=== PATIENT | female | born 1960 | race African-American/Black ===

== ENCOUNTER 2017-08-18 17:48 | Inpatient (IN) | payer OTHER ==
[2017-08-18 17:56] VITALS: BMI 53.8
--- NOTE | 2017-08-18 17:57 | PDOC ---
Rapid Medical Evaluation Time Seen by Provider: 08/18/17 17:50 Medical Evaluation: Allergies Allergy/AdvReac Type Severity Reaction Status Date / Time No Known Allergies Allergy Verified 08/18/17 17:50 12 17:50 The patient presents with a chief complaint of: allergic reaction for one week d/t vapor smoke coming through the vents in her apartment. Admits to cough and congestion. I have performed a brief in-person evaluation of this patient; Pertinent physical exam findings: HR: 130, BP 161/114. Decreased lung sounds to the LLL I have ordered the following: CXR, CBC, CMP, Cardiac profile, urine preg The patient will proceed to the ED for further evaluation.
[2017-08-18 18:15] LABS: BASO % 2.5 % (0-2.0); EOS % 3.2 % (0-4.5); MCH 28.9 pg (25.7-33.7); MCHC 32.4 g/dl (32.0-36.0); MEAN CELL VOLUME 89.2 fl (80-96); MEAN PLT VOLUME 11.4 fl (7.5-11.1); PLATELET COUNT 198 K/MM3 (134-434); RDW 14.2 % (11.6-15.6); WHITE BLOOD COUNT 4.7 K/mm3 (4.0-10.0)
[2017-08-18 18:51] LABS: ALBUMIN 3.6 g/dl (3.4-5.0); ANION GAP 8 (8-16); BILIRUBIN,TOTAL 1.1 mg/dL (0.2-1.0); CALCIUM 8.9 mg/dL (8.5-10.1); CO2 25 mmol/L (21-32); CREATININE 0.9 mg/dL (0.55-1.02); SGPT/ALT 68 U/L (12-78); TOT PROT 7.6 g/dl (6.4-8.2)
[2017-08-18 18:52] LABS: ALK PHOS 191 U/L (45-117)
[2017-08-18 18:54] LABS: TROPONIN I 0.03 ng/ml (0.00-0.05)
[2017-08-18] MEDS ORDERED: dilTIAZem HCL 50 MG/10 ML - 10 ML VIAL IVPUSH ONE (18:59)
[2017-08-18] MEDS ORDERED: DILTIAZEM INJECTION 125 MG in DEXTROSE 5%-WATER - 100 ML IVPB SCH (19:00)
[2017-08-18 19:15] LABS: SGOT/AST 62 U/L (15-37)
--- NOTE | 2017-08-18 19:16 | PDOC ---
History of Present Illness - General History Source: Patient Exam Limitations: No Limitations - History of Present Illness Initial Comments: 08/18/17 19:16 The patient is a 56 year old female with a significant PMH of heart murmur since childhood who presents to the emergency department with cough, congestion , wheezing, and dyspnea due to an allergic reaction to vapor smoke coming through the vents in her apartment for a week and a half. The patient states she has been taking benadryl and desloratadine with no relief of symptoms. The patient states her symptoms worsened today prompting her visit to the ER. The patient denies chest pain, headache and dizziness. Denies fever, chills, nausea, vomit, diarrhea and constipation. Allergies: NKA Past surgical history: None reported. Social history: No reported alcohol, drug, or cigarette use. <Carli Malone - Last Filed: 08/18/17 19:17> <Vic Can - Last Filed: 08/25/17 16:53> - General Chief Complaint: Allergic Reaction Stated Complaint: ALLERGIC REACTION Time Seen by Provider: 08/18/17 17:50 Past History <Carli Malone - Last Filed: 08/18/17 19:17> - Past Medical History Cardiac Disorders: Yes (MURMUR) COPD: No Diabetes: Yes (BORDER LINE) HTN: Yes (BORDER LINE) - Suicide/Smoking/Psychosocial Hx Smoking History: Never smoked Have you smoked in the past 12 months: No Information on smoking cessation initiated: No Hx Alcohol Use: No Drug/Substance Use Hx: No Substance Use Type: None <Vic Can - Last Filed: 08/25/17 16:53> - Past Medical History Allergies/Adverse Reactions: Allergies Allergy/AdvReac Type Severity Reaction Status Date / Time banana Allergy Unknown Hives Verified 08/20/17 13:43 green peas Allergy Unknown Hives Uncoded 08/20/17 13:43 hernandez beans Allergy Unknown Hives Uncoded 08/20/17 13:44 red apple Allergy Unknown Hives Uncoded 08/20/17 13:44 Home Medications: Ambulatory Orders NK [No Known Home Medication] 08/19/17 Review of Systems - Review of Systems Able to Perform ROS?: Yes Comments:: 08/18/17 19:16 GENERAL/CONSTITUTIONAL: No fever or chills. No weakness. HEAD, EYES, EARS, NOSE AND THROAT: No change in vision. No ear pain or discharge. No sore throat. CARDIOVASCULAR: No chest pain or shortness of breath. RESPIRATORY: (+) Dyspnea (+) Cough. (+) Wheezing. (+) Congestion. No hemoptysis. GASTROINTESTINAL: No nausea, vomiting, diarrhea or constipation. GENITOURINARY: No dysuria, frequency, or change in urination. MUSCULOSKELETAL: No joint or muscle swelling or pain. No neck or back pain. SKIN: No rash NEUROLOGIC: No headache, vertigo, loss of consciousness, or change in strength/ sensation. ENDOCRINE: No increased thirst. No abnormal weight change. HEMATOLOGIC/LYMPHATIC: No anemia, easy bleeding, or history of blood clots. ALLERGIC/IMMUNOLOGIC: No hives or skin allergy. <Carli Malone - Last Filed: 08/18/17 19:17> *Physical Exam - Vital Signs Last Vital Signs Temp Pulse Resp BP Pulse Ox 98.3 F 129 H 16 154/104 95 08/18/17 17:50 08/18/17 18:41 08/18/17 18:41 08/18/17 18:41 08/18/17 18:41 - Physical Exam Comments: 08/18/17 19:17 GENERAL: Awake, alert, and fully oriented, in no acute distress HEAD: No signs of trauma EYES: PERRLA, EOMI, sclera anicteric, conjunctiva clear ENT: Auricles normal inspection, hearing grossly normal, nares patent, oropharynx clear without exudates. Moist mucosa NECK: (+) JVD. Normal ROM, supple, no lymphadenopathy,or masses LUNGS: (+) Rales. Breath sounds equal, clear to auscultation bilaterally. No wheezes, and no crackles HEART: Regular rate and rhythm, normal S1 and S2, no murmurs, rubs or gallops ABDOMEN: Soft, nontender, normoactive bowel sounds. No guarding, no rebound. No masses EXTREMITIES: (+) Lower extremity edema bilaterally. Normal range of motion. No clubbing or cyanosis. No cords, erythema, or tenderness NEUROLOGICAL: Cranial nerves II through XII grossly intact. Normal speech, normal gait SKIN: Warm, Dry, normal turgor, no rashes or lesions noted. <Carli Malone - Last Filed: 08/18/17 19:17> - Vital Signs Last Vital Signs Temp Pulse Resp BP Pulse Ox 98.3 F 129 H 16 154/104 95 08/18/17 17:50 08/18/17 18:41 08/18/17 18:41 08/18/17 18:41 08/18/17 18:41 <Vic Can - Last Filed: 08/25/17 16:53> Heart Score/ECG Review #1 08/18/17 19:17 EKG performed at [18:42] demonstrates rate of [128], rhythm of [Atrial flutter with 2:[address] and T wave abnormality. Abnormal ECG.] <Carli Malone - Last Filed: 08/18/17 19:17> ED Treatment Course - LABORATORY CBC & Chemistry Diagram: 08/18/17 18:10 08/18/17 18:10 - ADDITIONAL ORDERS Additional order review: Laboratory Results 08/18/17 18:10 Urine HCG, Qual Negative 08/18/17 18:10 RBC 4.89 MCV 89.2 MCHC 32.4 RDW 14.2 MPV 11.4 H Neutrophils % 50.0 Lymphocytes % 34.8 Monocytes % 9.5 Eosinophils % 3.2 Basophils % 2.5 H <Carli Malone - Last Filed: 08/18/17 19:17> - LABORATORY CBC & Chemistry Diagram: 08/25/17 06:30 08/25/17 06:30 - ADDITIONAL ORDERS Additional order review: Laboratory Results 08/18/17 18:10 Urine HCG, Qual Negative 08/18/17 18:10 RBC 4.89 MCV 89.2 MCHC 32.4 RDW 14.2 MPV 11.4 H Neutrophils % 50.0 Lymphocytes % 34.8 Monocytes % 9.5 Eosinophils % 3.2 Basophils % 2.5 H - RADIOLOGY Radiology Studies Ordered: Category Date Time Status DUPLEX VASCUL US-2LEGS [US] Stat Ultrasound 08/18/17 18:57 Ordered <Vic Can - Last Filed: 08/25/17 16:53> *DC/Admit/Observation/Transfer - Attestations Scribe Attestion: 08/18/17 19:17 Documentation prepared by Carli Malone, acting as medical screener for Vic Can MD. <Carli Malone - Last Filed: 08/18/17 19:17> - Attestations Physician Attestion: 08/18/17 19:16 I, Dr. Vic Can, attest that this document has been prepared under my direction and personally reviewed by me in its entirety. I further attest, that it accurately reflects all work, treatment, procedures and medical decision -making performed by me. <Vic Can - Last Filed: 08/25/17 16:53> Diagnosis at time of Disposition: New onset a-fib - Discharge Dispostion Condition at time of disposition: Stable
[2017-08-18 19:17] LABS: GLUCOSE,RANDOM 377 mg/dL (74-106)
[2017-08-18] MEDS ORDERED: dilTIAZem HCL 125 MG/25 ML - 25 ML VIAL ONE (19:52)
[2017-08-18] MEDS ORDERED: dilTIAZem HCL 50 MG/10 ML - 10 ML VIAL ONE (19:52)
[2017-08-18 19:55] LABS: PLATELET ESTIMATE ADEQUATE
[2017-08-18 19:56] LABS: PLATELET COMMENTS SLIDE SCANNED. FEW G
--- NOTE | 2017-08-18 20:09 | PDOC ---
*Physical Exam - Vital Signs Last Vital Signs Temp Pulse Resp BP Pulse Ox 98.3 F 129 H 16 154/104 95 08/18/17 17:50 08/18/17 18:41 08/18/17 18:41 08/18/17 18:41 08/18/17 18:41 ED Treatment Course - LABORATORY CBC & Chemistry Diagram: 08/18/17 18:10 08/18/17 18:10 - ADDITIONAL ORDERS Additional order review: Laboratory Results 08/18/17 08/18/17 08/18/17 18:10 18:10 18:10 Sodium 134 L Potassium 4.8 Chloride 101 Carbon Dioxide 25 Anion Gap 8 BUN 18 Creatinine 0.9 Creat Clearance w eGFR > 60 Random Glucose 377 H* Calcium 8.9 Total Bilirubin 1.1 H AST 62 H ALT 68 Alkaline Phosphatase 191 H Creatine Kinase 74 Troponin I 0.03 Total Protein 7.6 Albumin 3.6 Urine HCG, Qual Negative 08/18/17 18:10 RBC 4.89 MCV 89.2 MCHC 32.4 RDW 14.2 MPV 11.4 H Neutrophils % 50.0 Lymphocytes % 34.8 Monocytes % 9.5 Eosinophils % 3.2 Basophils % 2.5 H Medical Decision Making - Medical Decision Making 08/18/17 20:54 Spoke to JENNIFER James. accepted case to ICU *DC/Admit/Observation/Transfer Diagnosis at time of Disposition: New onset a-fib - Discharge Dispostion Condition at time of disposition: Stable Admit: Yes - Referrals - Patient Instructions - Post Discharge Activity
[2017-08-18 20:44] LABS: INR 1.12 (0.82-1.09); PROTHROMBIN TIME (PATIENT) 12.6 SEC (9.98-11.88)
--- NOTE | 2017-08-18 22:31 | CONSULT ---
Consult Consult Specialty:: Pulm Critical Care Referred by:: Kannan Rg Reason for Consultation:: New Onset Afib - History of Present Illness Chief Complaint: SOB History of Present Illness: This is a 56 yo woman with h/o "borderline asthma and diabetes" and a congenital heart murmur who presented herself to the ED w/ c/o SOB and rhinitis and nasal congestion exacerbated by a neighbor's vape fumes a week prior. Pt describes having an allergy or severe reaction to heavy scents or fumes which cause her to have congestion and SOB. She had taken OTC nasal decongestant syrup and pills, but stated that she started to feel shaky so she stopped. She notes that her b/l LEs had increased swelling in the last week. Did not receive flu shot this year. In the ED, as per report pt was placed on satellite project site monitor and found to be in rapid Afib in 120-130s, given cardizem IVP, and started on cardizem gtt. EKG shows an AFlutter @129bpm w/o ST changes. CXR shows cardiomegaly, b/l effusions R>L, retrocardiac opacity (my read). LAbs remarkable for BNP= 1400s. A b/l LE US doppler done which was negative. Transferred to ICu for further management and monitoring. In the ICU, pt is alert calm, speaking in full sentences, denies SOB or chest discomfort, b/l LE 2+ pitting edema. Extremities warm. HR on monitor in 130s, BP 155/100, sat'ing >97% on RA. Cardizem gtt continued, but increased to 15mg/hr , Heparin gtt started. 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: Alzheimer's, CVA, Dementia, Migraine, Multiple Sclerosis, Peripheral Neuropathy, Parkinson's, Seizure, Syncope, TIA, Vertigo, Other Cardio/Vascular: Yes: Murmur Pulmonary: Yes: Asthma, Pulmonary Embolus Gastrointestinal: No: Ascites, Cancer, Constipation, Crohn's Disease, Diverticulitis, Diverticulosis, Esophageal Varices, Gastritis, GERD, GI Bleed, Hemorrhoids, Hiatal Hernia, Inflamatory Bowel Disease, Irritable Bowel Disease, Pancreatitis, Peptic Ulcer Disease, Ulcerative Colitis, Other Hepatobiliary: No: Cirrhosis, Cholelithiasis, Cholecystitis, Choledocholithiasis , Hepatitis A, Hepatitis B, Hepatitis C, Other Renal/: No: Renal Failure, Renal Inusuff, BPH, Cancer, Hematuria, Hemodialysis , Neurogenic Bladder, Renal Calculi, UTI, Other Reproductive: No: Ectopic , Endometriosis, Fibroids, PID, Polycystic Ovary Syndrome, Postmenopausal, Other ...: No ...: 1 ...Para: 1 Heme/Onc: No: Anemia, B12 Deficiency, Bleeding Disorder, Cancer, Current Chemotherapy, Current Radiation Therapy, Hemochromatosis, Hypercoaguable State, Myeloproliferative Synd, Sickle Cell Disease, Sickle Cell Trait, Thrombocytopenia, Other Infectious Disease: No: AIDS, C-Diff, Herpes Zoster, HIV, MRSA, STD's, Tuberculosis, VREF, Other Psych: No: Addictions, Anxiety, Bipolar, Depression, Panic, Psychosis, Schizophrenia, Other Musculoskeletal: Yes: Hemiparesis, Hemiplegia Rheumatology: No: Fibromyalgia, Gout, Lupus, Rheumatoid Arthritis, Sarcoidosis, Vasculitis, Other ENT: Yes: Allergic Rhinitis Endocrine: Yes: Diabetes Mellitus, Other ("borderline") Dermatology: No: Basal Cell, Cellulitis, Eczema, Melanoma, Psoriasis, Squamous Cell, Other - Past Surgical History Past Surgical History: Yes: - Alcohol/Substance Use Hx Alcohol Use: No History of Substance Use: reports: None - Smoking History Smoking history: Never smoked Have you smoked in the past 12 months: No - Social History Usual Living Arrangement: With Spouse ADL: Independent Place of : [facility] History of Recent Travel: No Home Medications - Allergies Allergies/Adverse Reactions: Allergies Allergy/AdvReac Type Severity Reaction Status Date / Time No Known Allergies Allergy Verified 08/18/17 17:50 Review of Systems - Review of Systems Constitutional: reports: No Symptoms Eyes: reports: No Symptoms HENT: reports: Nasal Congestion Neck: reports: No Symptoms Cardiovascular: reports: Edema, Shortness of Breath. denies: Chest Pain Respiratory: reports: Cough, SOB, SOB on Exertion, Wheezing Gastrointestinal: denies: Abdominal Pain, Bloating, Constipation, Diarrhea, Dysphagia, Nausea, Vomiting Genitourinary: denies: No Symptoms Breasts: denies: No Symptoms Reported Integumentary: reports: No Symptoms Neurological: reports: Tremors (body tremors) Endocrine: reports: No Symptoms Hematology/Lymphatic: reports: No Symptoms Psychiatric: reports: No Symptoms Pain Intensity: 0 Physical Exam Vital Signs: Vital Signs Temperature 98 F 08/18/17 21:12 Pulse Rate 129 H 08/18/17 21:12 Respiratory Rate 20 08/18/17 21:12 Blood Pressure 160/100 08/18/17 21:12 O2 Sat by Pulse Oximetry (%) 97 08/18/17 21:12 Constitutional: Yes: Well Nourished, No Distress, Calm Eyes: Yes: WNL, Conjunctiva Clear, EOM Intact, PERRL HENT: Yes: WNL, Atraumatic, Normocephalic, Nasal Congestion Neck: Yes: WNL, Supple, Trachea Midline. No: Lymphadenopathy, Rigid, Tenderness Cardiovascular: Yes: Regular Rate and Rhythm, Tachycardia, JVD, Murmur. No: S3 , S4 Respiratory: Yes: Regular, Cough, Diminished (RLL). No: Accessory Muscle Use, Rales, SOB, Tachypnea, Wheezes Gastrointestinal: Yes: WNL, Normal Bowel Sounds, Soft, Abdomen, Obese. No: Distention, Tenderness ...Rectal Exam: Yes: Deferred Renal/: Yes: WNL. No: Menses Present, Breast(s): Yes: WNL Musculoskeletal: Yes: WNL Edema: Yes Edema: LLE: 2+, RLE: 2+ Peripheral Pulses WNL: Yes Integumentary: Yes: WNL Neurological: Yes: WNL, Alert, Oriented. No: Lethargy, Tremors, Weakness ...Motor Strength: WNL Psychiatric: Yes: WNL, Alert, Oriented Labs: CBC, BMP 08/18/17 18:10 08/18/17 18:10 Imaging - Results Chest X-ray: Image Reviewed Ultrasound: Image Reviewed EKG: Image Reviewed Problem List - Problems (1) Afib Code(s): I48.91 - UNSPECIFIED ATRIAL FIBRILLATION Qualifiers: Atrial fibrillation type: unspecified Qualified Code(s): I48.91 - Unspecified atrial fibrillation (2) SOB (shortness of breath) Code(s): R06.02 - SHORTNESS OF BREATH Assessment/Plan This is a 56 yo woman with h/o "borderline asthma and diabetes" and a congenital heart murmur who presented herself to the ED w/ c/o SOB incidentally found to be in AFlutter started on cardizem gtt and transferred to ICU for further management. Pulm: ?h/o asthma; c/o SOB now subsided, breathing easy on RA, no wheezing or crackles - supplemental O2 as needed - f/u CXR - PRN albuterol - cough suppressant PRN - avoid heavy fumes/ scents, as these exacerbate her reactive airway CV: ?HF (unknown EF) in the setting of cardiomegaly on CXR with new onset Aflutter, increased b/l LE edema with SOB and elevated BNP. Unclear when her last echo was done. - AM EKG - f/u BNP - Echo - Cont cardizem gtt - cont heparin gtt - trend electrolytes, replete as necessary - consider ACEI or beta miguel when transitioned off cardizem gtt - Lasix - daily weight ENdo: ?DM in the setting of high gluc readings; liver enzymes elevated in the setting of HF - hgb a1c - consider sliding scale insulin if next reading high - DM/cardiac diet - consider Abdominal US : Cr. 0.9 - strict I & O - UA Renetta James, LIYAP-BC pulm critical care
[2017-08-18] MEDS ORDERED: HEPARIN INFUSION - 25,000 UNITS/500 ML INFUS.BAG IVPB SCH (23:45)
--- NOTE | 2017-08-19 00:01 | MSN ---
Admitting History and Physical - Admission Chief Complaint: Allergic reaction History of Present Illness: Carol Pressley is a 56 year old female with past medical history of heart murmur (since childhood), borderline DM (last diagnosed 3 years ago), borderline HTN ( last diagnosed 3 years ago), who presents because of an allergic reaction and for "feeling jittery". Patient states that a few day ago one of her neighbors was smoking and the smoke came through her vent. Then she began to feel congested adn started to wheeze. Patient states she was taking benadryl without relief so she also took desloratidine and tylenol cold. Patient states last night she began to "feel jittery". She also states that she felt exhausted and attributes that to her multiple doses of benadryl. Patient denies any dyspnea while walking on flat surface. She reports dyspnea after walking up a hill. Patient also reports 1 week of bilateral leg swelling. Patient denies fever, chills, nausea, vomiting, diarrhea, constipation, abdominal pain, dysuria, hematuria, urinary frequency, leg pain, dizziness, chest pain, palpitations, headache, history of chest pain, history of MS, family history of heart disease. Patient states that in the past she was told she has thyroid problems but is unsure if it's hypothyroidism or hyperthyroidism. Patient states she get hot flashes but she attributes that to menopause. Patient states the last time she went to her primary care doctor was 3 years ago. She states she doesn't follow a friend of the court or a flexible nanny. ED course was notable for: 1. ID: [id number], BP: 160/100 2. Glucose: 377 3. New onset Afib with RVR 4. BNP: 1471 5. CXR showed cardiomegaly and probable pulmonary congestion 6. 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: Alzheimer's, CVA, Dementia, Migraine, Multiple Sclerosis, Peripheral Neuropathy, Parkinson's, Seizure, Syncope, TIA, Vertigo, Other Cardiovascular: Yes: Murmur Pulmonary: Yes: Asthma, Pulmonary Embolus Gastrointestinal: No: Ascites, Cancer, Constipation, Crohn's Disease, Diverticulitis, Diverticulosis, Esophageal Varices, Gastritis, GERD, GI Bleed, Hemorrhoids, Hiatal Hernia, Inflamatory Bowel Disease, Irritable Bowel Disease, Pancreatitis, Peptic Ulcer Disease, Ulcerative Colitis, Other Hepatobiliary: No: Cirrhosis, Cholelithiasis, Cholecystitis, Choledocholithiasis , Hepatitis A, Hepatitis B, Hepatitis C, Other Renal/: No: Renal Failure, Renal Inusuff, BPH, Cancer, Hematuria, Hemodialysis , Neurogenic Bladder, Renal Calculi, UTI, Other ...: No ...: 1 ...Para: 1 Heme/Onc: No: Anemia, B12 Deficiency, Bleeding Disorder, Cancer, Current Chemotherapy, Current Radiation Therapy, Hemochromatosis, Hypercoaguable State, Myeloproliferative Synd, Sickle Cell Disease, Sickle Cell Trait, Thrombocytopenia, Other Infectious Disease: No: AIDS, C-Diff, Herpes Zoster, HIV, MRSA, STD's, Tuberculosis, VREF, Other Psych: No: Addictions, Anxiety, Bipolar, Depression, Panic, Psychosis, Schizophrenia, Other Musculoskeletal: Yes: Hemiparesis, Hemiplegia Rheumatology: No: Fibromyalgia, Gout, Lupus, Rheumatoid Arthritis, Sarcoidosis, Vasculitis, Other ENT: Yes: Allergic Rhinitis Endocrine: Yes: Diabetes Mellitus, Other ("borderline") Dermatology: No: Basal Cell, Cellulitis, Eczema, Melanoma, Psoriasis, Squamous Cell, Other - Past Surgical History Past Surgical History: Yes: - Smoking History Smoking history: Never smoked Have you smoked in the past 12 months: No - Alcohol/Substance Use Hx Alcohol Use: No History of Substance Use: reports: None - Social History ADL: Independent History of Recent Travel: No Home Medications - Allergies Allergies/Adverse Reactions: Allergies Allergy/AdvReac Type Severity Reaction Status Date / Time No Known Allergies Allergy Verified 08/18/17 17:50 Review of Systems - Review of Systems Constitutional: reports: No Symptoms Eyes: reports: No Symptoms HENT: reports: Nasal Congestion Neck: reports: No Symptoms Cardiovascular: reports: No Symptoms, Edema Respiratory: reports: SOB on Exertion, Wheezing Gastrointestinal: reports: No Symptoms Genitourinary: reports: No Symptoms Musculoskeletal: reports: No Symptoms Integumentary: reports: No Symptoms Neurological: reports: No Symptoms Physical Examination Vital Signs: Vital Signs Temperature 98 F 08/18/17 23:17 Pulse Rate 128 H 08/18/17 23:17 Respiratory Rate 20 08/18/17 23:17 Blood Pressure 150/70 08/18/17 23:17 O2 Sat by Pulse Oximetry (%) 97 08/18/17 23:17 Constitutional: Yes: No Distress, Calm, Obese Eyes: Yes: Conjunctiva Clear, EOM Intact HENT: Yes: Atraumatic, Normocephalic Neck: Yes: Supple, Trachea Midline, Other (Positive hepatojugular reflux) Cardiovascular: Yes: Tachycardia, JVD Respiratory: Yes: Regular, CTA Bilaterally Gastrointestinal: Yes: Soft, Abdomen, Obese (no tenderness to palpation in all 4 quadrants), Hypoactive Bowel Sounds Musculoskeletal: Yes: WNL Extremities: Yes: Other (2+ pitting edema in bilateral lower extremities, DP palpable and 2+ bilaterally, no discoloration, warm to touch) Edema: Yes Edema: LLE: 2+, RLE: 2+ Peripheral Pulses: Left Radial: 2+, Right Radial: 2+, Left Doralis Pedis: 2+, Right Dorsalis Pedis: 2+ Neurological: Yes: Alert, Oriented Labs: CBC, BMP 08/18/17 18:10 08/18/17 18:10 Assessment/Plan Carol Pressley is a 56 yo F w/ PMHx of heart murmur (since childhood), borderline DM (last diagnosed 3 years ago), borderline HTN (last diagnosed 3 years ago), who was admitted to ICU for new onset afib. 1. New onset Aflutter with history of heart murmur - Cardizem 125 mg intially started in ICU, wean off cardizem drip - Metoprolol Tartrate 25 mg PO TID - Anticoagulate with Heparin 25,000U IVPB @ 20 mls/hr - TSH, lipid panel 2. New onset CHF - BNP was 1471, CXR showed cardiomegaly and possible pulmonary congestion - order echo, trop, ekg - Diurese with Lasix 40 mg - Cardio on board- Dr. Loomis - Sodium/fat/cholesterol restricted diet 3. DM - BGM, HbA1c - ISS 4. DVT proph - Patient being anticoagulated with heparin Dispo: Will admit to ICU.
[2017-08-19] MEDS ORDERED: HEPARIN NA (PORCINE) 5,000 UNITS/ML 1ML VIAL IVPUSH ONE (00:42)
[2017-08-19] MEDS ORDERED: HEPARIN NA (PORCINE) 5,000 UNITS/ML 1ML VIAL IVPUSH PRN ×6 (00:42→23:32)
[2017-08-19] MEDS ORDERED: HEPARIN SOD,PORK IN 0.45% NACL 25,000 UNIT/500 ML INFUS.BAG IVPB SCH ×2 (00:45→11:46)
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
[2017-08-19] MEDS ORDERED: morphine CARPU-JECT 8 MG/1 ML DISP.SYRIN IVPUSH ONE (01:02)
[2017-08-19] MEDS ORDERED: morphine SULFATE 4 MG/ML VIAL IVPUSH ONE (01:02)
[2017-08-19] MEDS ORDERED: FUROSEMIDE 40 MG/4 ML INJECTABLE VIAL IVPUSH ONE ×2 (01:13→16:00)
[2017-08-19] MEDS ORDERED: morphine SULFATE 4 MG/ML VIAL ONE (01:24)
[2017-08-19] MEDS ORDERED: guaiFENesin/D-M SUGAR-FREE/ACLHOL-FREE 118 ML BOTTLE PO PRN ×2 (01:30→23:32)
[2017-08-19] MEDS ORDERED: ESMOLOL 2500 MG/250 ML 2,500,000 MCG/250 ML INFUS.BAG IVPB SCH ×3 (01:45→23:32)
[2017-08-19] MEDS ORDERED: METOPROLOL TARTRATE 25 MG TABLET (FP) PO SCH (06:00)
[2017-08-19 06:09] LABS: BASO % 0.9 % (0-2.0); EOS % 3.7 % (0-4.5); MCH 29.3 pg (25.7-33.7); MCHC 32.8 g/dl (32.0-36.0); MEAN CELL VOLUME 89.3 fl (80-96); MEAN PLT VOLUME 11.6 fl (7.5-11.1); PLATELET COUNT 189 K/MM3 (134-434); WHITE BLOOD COUNT 3.7 K/mm3 (4.0-10.0)
[2017-08-19 06:16] LABS: INR 1.26 (0.82-1.09); PROTHROMBIN TIME (PATIENT) 14.2 SEC (9.98-11.88)
[2017-08-19] MEDS: INSULIN SLIDING SCALE (NOVOLOG) 1 VIAL SQ SCH ×5 (06:27→22:57)
[2017-08-19 06:31] LABS: ANION GAP 6 (8-16); BILIRUBIN,TOTAL 1.3 mg/dL (0.2-1.0); CALCIUM 8.3 mg/dL (8.5-10.1); CO2 31 mmol/L (21-32); CREATININE 0.8 mg/dL (0.55-1.02); PHOSPHOROUS 3.9 mg/dL (2.5-4.9); SGOT/AST 25 U/L (15-37); SGPT/ALT 53 U/L (12-78); TOT PROT 6.2 g/dl (6.4-8.2)
[2017-08-19 06:40] LABS: ALK PHOS 131 U/L (45-117); CPK 57 IU/L (26-192); THYROID STIMULATING HORMONE 1.52 uIU/ml (0.358-3.74); TROPONIN I 0.03 ng/ml (0.00-0.05)
[2017-08-19 07:00] LABS: GLUCOSE,RANDOM 317 mg/dL (74-106)
[2017-08-19 07:21] LABS: CHOLESTEROL 131 mg/dL (50-200)
--- NOTE | 2017-08-19 09:13 | EKG ---
Test Reason : Blood Pressure : / mmHG Vent. Rate : 128 BPM Atrial Rate : 256 BPM P-R Int : 000 ms QRS Dur : 088 ms QT Int : 360 ms P-R-T Axes : 000 027 061 degrees QTc Int : 525 ms ATRIAL FLUTTER WITH 2:1 A-V CONDUCTION ABNORMAL ECG WHEN COMPARED WITH ECG OF 18-AUG-2017 21:11, ST ELEVATION HAS REPLACED ST DEPRESSION IN INFERIOR LEADS ST NO LONGER DEPRESSED IN ANTEROLATERAL LEADS NONSPECIFIC T WAVE ABNORMALITY, WORSE IN ANTEROLATERAL LEADS Confirmed by YASMIN RCEWS MD ([id number]) on 08/19/2017 9:12:54 AM Referred By: Confirmed By:YASMIN CREWS MD
--- NOTE | 2017-08-19 09:15 | EKG ---
Test Reason : Blood Pressure : / mmHG Vent. Rate : 129 BPM Atrial Rate : 258 BPM P-R Int : 000 ms QRS Dur : 080 ms QT Int : 290 ms P-R-T Axes : 247 026 055 degrees QTc Int : 424 ms ATRIAL FLUTTER WITH 2:1 A-V CONDUCTION NONSPECIFIC T WAVE ABNORMALITY ABNORMAL ECG WHEN COMPARED WITH ECG OF 18-AUG-2017 18:42, NONSPECIFIC T WAVE ABNORMALITY, IMPROVED IN ANTEROLATERAL LEADS Confirmed by YASMIN CREWS MD ([id number]) on 08/19/2017 9:15:15 AM Referred By: Confirmed By:YASMIN CREWS MD
--- NOTE | 2017-08-19 09:16 | EKG ---
Test Reason : Blood Pressure : / mmHG Vent. Rate : 128 BPM Atrial Rate : 256 BPM P-R Int : 000 ms QRS Dur : 080 ms QT Int : 222 ms P-R-T Axes : 220 034 043 degrees QTc Int : 324 ms ATRIAL FLUTTER WITH 2:1 A-V CONDUCTION NONSPECIFIC ST AND T WAVE ABNORMALITY ABNORMAL ECG NO PREVIOUS ECGS AVAILABLE Confirmed by YASMIN CREWS MD ([id number]) on 08/19/2017 9:15:56 AM Referred By: Confirmed By:YASMIN CREWS MD
[2017-08-19] MEDS ORDERED: ASPIRIN COATED 81 MG TABLET.EC PO SCH (10:00)
[2017-08-19] MEDS ORDERED: DIGOXIN 0.5 MG/2 ML AMPUL IVPUSH ONE ×4 (10:03→22:00)
[2017-08-19] MEDS ORDERED: INSULIN DETEMIR 100 UNITS/ML MDV SQ SCH (10:15)
[2017-08-19] MEDS ORDERED: PT OWN MED DRAWER 7, Y5N ONE (10:39)
[2017-08-19] MEDS: MUPIROCIN 2% TOPICAL OINTMENT FOR DECOLONIZATION NS SCH ×2 (10:42→22:56)
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
--- NOTE | 2017-08-19 11:40 | PN ---
Teaching Attending Note Name of Resident: Ruiz Cee ATTENDING PHYSICIAN STATEMENT I saw and evaluated the patient. I reviewed the resident's note and discussed the case with the resident. I agree with the resident's findings and plan as documented. SUBJECTIVE: Patient seen and examined in the ICU. Awake and alert. Denies CP or SOB. Remains on IV Esmolol and IV Heparin. Gives a history that is highly suggestive of Sleep Apnea Syndrome. Intake & Output 08/16/17 08/17/17 08/18/17 08/19/17 23:59 23:59 23:59 23:59 Output Total 1150 Balance -1150 Weight 285 lb 286 lb 9.615 oz Last Vital Signs Temp Pulse Resp BP Pulse Ox 97.8 F 128 H 23 103/68 97 08/19/17 02:00 08/19/17 10:42 08/19/17 09:00 08/19/17 07:00 08/19/17 09:00 Active Medications Atorvastatin Calcium (Lipitor -) 10 mg PO HS [place] Chlorhexidine Gluconate (Hibiclens For Decolonization -) 1 applic TP HS [place] Digoxin (Lanoxin Injection -) 0.25 mg IVPUSH ONCE ONE Stop: 08/19/17 16:01 Digoxin (Lanoxin Injection -) 0.25 mg IVPUSH ONCE ONE Stop: 08/19/17 22:01 Furosemide (Lasix Injection -) 40 mg IVPUSH DAILY [place] Guaifenesin (Diabetic Tussin Dm -) 5 ml PO Q4H PRN PRN Reason: COUGH Last Admin: 08/19/17 02:42 Dose: 5 5ml Heparin Sodium (Porcine) (Heparin -) 5,000 unit IVPUSH PRN PRN Heparin Sodium (Porcine) (Heparin -) 1,000 unit IVPUSH PRN PRN HEPARIN SOD,PORK IN 0.45% NACL (Heparin-1/2ns 25,000 Units/500) 25,000 unit in 500 mls @ 20 mls/hr IVPB TITR [place]; 1,000 UNIT/HR PRN Reason: Protocol Last Admin: 08/19/17 01:38 Dose: 1,000 unit/hr, 20 mls/hr Esmolol HCl (Brevibloc 2500 Mg/250 Ml -) 2,500,000 mcg in 250 mls @ 38.782 mls/ hr IVPB TITR [place]; 50 MCG/KG/MIN PRN Reason: Protocol Insulin Aspart (Novolog Vial Sliding Scale -) 1 vial SQ ACHS [place] PRN Reason: Protocol Last Admin: 08/19/17 10:43 Dose: 10 units Insulin Detemir (Levemir Vial) 10 units SQ AM [place] Metoprolol Tartrate (Lopressor -) 50 mg PO BID [place] Mupirocin (Bactroban Ointment (For Decolonization) -) 1 applic NS BID [facility] Stop: 08/24/17 09:59 Last Admin: 08/19/17 10:42 Dose: 1 applic Warfarin Sodium (Coumadin -) 5 mg PO DAILY@1800 [place] Constitutional: Yes: Well Nourished, No Distress Eyes: Yes: WNL, Conjunctiva Clear, EOM Intact, PERRL HENT: Yes: WNL, Atraumatic, Normocephalic, Nasal Congestion Neck: Yes: WNL, Supple, Trachea Midline. No: Lymphadenopathy, Rigid, Tenderness Cardiovascular: Yes: Irregular, Tachycardia, JVD, Murmur. No: S3, S4 Respiratory: Yes: Clear, No: Accessory Muscle Use, Rales, SOB, Tachypnea, Wheezes Gastrointestinal: Yes: WNL, Normal Bowel Sounds, Soft, Abdomen, Obese. No: Distention, Tenderness ...Rectal Exam: Yes: Deferred Renal/: Yes: WNL. No: Menses Present, Breast(s): Yes: WNL Musculoskeletal: Yes: WNL Edema: Yes Edema: LLE: 2+, RLE: 2+ Peripheral Pulses WNL: Yes Integumentary: Yes: WNL Neurological: Yes: WNL, Alert, Oriented. No: Lethargy, Tremors, Weakness ...Motor Strength: WNL Psychiatric: Yes: WNL, Alert, Oriented Labs: Laboratory Results - last 24 hr 08/18/17 08/18/17 08/18/17 18:10 18:10 18:10 WBC 4.7 RBC 4.89 Hgb 14.1 Hct 43.6 MCV 89.2 MCH 28.9 MCHC 32.4 RDW 14.2 Plt Count 198 MPV 11.4 H Neutrophils % 50.0 Lymphocytes % 34.8 Monocytes % 9.5 Eosinophils % 3.2 Basophils % 2.5 H Platelet Estimate Adequate Platelet Comment Slide scanned. few g PT with INR INR PTT (Actin FS) Sodium 134 L Potassium 4.8 Chloride 101 Carbon Dioxide 25 Anion Gap 8 BUN 18 Creatinine 0.9 Creat Clearance w eGFR > 60 POC Glucometer Random Glucose 377 H* Calcium 8.9 Phosphorus Total Bilirubin 1.1 H AST 62 H ALT 68 Alkaline Phosphatase 191 H Creatine Kinase Troponin I B-Natriuretic Peptide Total Protein 7.6 Albumin 3.6 Triglycerides Cholesterol Total LDL Cholesterol HDL Cholesterol TSH Urine HCG, Qual Negative 08/18/17 08/18/17 08/18/17 18:10 20:20 20:20 WBC RBC Hgb Hct MCV MCH MCHC RDW Plt Count MPV Neutrophils % Lymphocytes % Monocytes % Eosinophils % Basophils % Platelet Estimate Platelet Comment PT with INR 12.60 H INR 1.12 PTT (Actin FS) Sodium Potassium Chloride Carbon Dioxide Anion Gap BUN Creatinine Creat Clearance w eGFR POC Glucometer Random Glucose Calcium Phosphorus Total Bilirubin AST ALT Alkaline Phosphatase Creatine Kinase 74 Troponin I 0.03 B-Natriuretic Peptide 1471.03 H Total Protein Albumin Triglycerides Cholesterol Total LDL Cholesterol HDL Cholesterol TSH Urine HCG, Qual 08/19/17 08/19/17 08/19/17 00:06 05:55 05:55 WBC 3.7 L RBC 4.30 Hgb 12.6 D Hct 38.3 MCV 89.3 MCH 29.3 MCHC 32.8 RDW 14.0 Plt Count 189 MPV 11.6 H Neutrophils % 53.0 Lymphocytes % 30.6 Monocytes % 11.8 H Eosinophils % 3.7 Basophils % 0.9 Platelet Estimate Platelet Comment PT with INR 14.20 H INR 1.26 H PTT (Actin FS) 32.6 Sodium Potassium Chloride Carbon Dioxide Anion Gap BUN Creatinine Creat Clearance w eGFR POC Glucometer Random Glucose Calcium Phosphorus Total Bilirubin AST ALT Alkaline Phosphatase Creatine Kinase Troponin I B-Natriuretic Peptide Total Protein Albumin Triglycerides Cholesterol Total LDL Cholesterol HDL Cholesterol TSH Urine HCG, Qual 08/19/17 08/19/17 08/19/17 05:55 05:55 06:14 WBC RBC Hgb Hct MCV MCH MCHC RDW Plt Count MPV Neutrophils % Lymphocytes % Monocytes % Eosinophils % Basophils % Platelet Estimate Platelet Comment PT with INR INR PTT (Actin FS) Sodium 139 Potassium 4.1 Chloride 102 Carbon Dioxide 31 D Anion Gap 6 L BUN 13 D Creatinine 0.8 Creat Clearance w eGFR > 60 POC Glucometer 337.86804 Random Glucose 317 H* Calcium 8.3 L Phosphorus 3.9 Total Bilirubin 1.3 H AST 25 D ALT 53 D Alkaline Phosphatase 131 H D Creatine Kinase 57 Troponin I 0.03 B-Natriuretic Peptide Total Protein 6.2 L Albumin 3.0 L Triglycerides 59 Cholesterol 131 Total LDL Cholesterol 80 HDL Cholesterol 46 TSH 1.52 Urine HCG, Qual 08/19/17 08:20 WBC RBC Hgb Hct MCV MCH MCHC RDW Plt Count MPV Neutrophils % Lymphocytes % Monocytes % Eosinophils % Basophils % Platelet Estimate Platelet Comment PT with INR INR PTT (Actin FS) 84.0 H D Sodium Potassium Chloride Carbon Dioxide Anion Gap BUN Creatinine Creat Clearance w eGFR POC Glucometer Random Glucose Calcium Phosphorus Total Bilirubin AST ALT Alkaline Phosphatase Creatine Kinase Troponin I B-Natriuretic Peptide Total Protein Albumin Triglycerides Cholesterol Total LDL Cholesterol HDL Cholesterol TSH Urine HCG, Qual Problem List - Problems (1) Afib / Flutter Code(s): I48.91 - UNSPECIFIED ATRIAL FIBRILLATION Qualifiers: Atrial fibrillation type: unspecified Qualified Code(s): I48.91 - Unspecified atrial fibrillation (2) SOB (shortness of breath) Code(s): R06.02 - SHORTNESS OF BREATH (3) R/O OSAS (4) ? Asthma Assessment/Plan Wean Esmolol drip IV heparin Glycemic control O2 as needed Sleep screen and will need a formal sleep workup after discharge ECHO Cardiology evaluation Cardiac Telemetry monitoring Dr Michaud Critical care time spent in reviewing chart, evaluating patient and formulating plan - 40 minutes.
[2017-08-19] MEDS ORDERED: HEPARIN SOD,PORK IN 0.45% NACL 25,000 UNITS/500 ML INFUS.BAG IVPB SCH (12:00)
[2017-08-19] MEDS: METOPROLOL TARTRATE 50 MG TABLET (FP) PO SCH ×2 (12:44→22:55)
--- NOTE | 2017-08-19 12:59 | PN ---
Physical Exam: SUBJECTIVE: The patient is a 56F with a PMH of DM and asthma who presents to the ED with SOB, rhinitis, and nasal congestion and was found to be in new onset a-fib/flutter requiring a cardizem drip. She also complained of b/l LE swelling; negative duplex. Heparin drip started. She has no acute complaints. No overnight events. She is hemodynamically stable. OBJECTIVE: Vital Signs Period Temp Pulse Resp BP Sys/Soriano Pulse Ox Last 24 Hr 97.8 F-98.3 F 125-131 16-31 103-161/68-114 95-100 GENERAL: The patient is awake, alert, and fully oriented, in no acute distress. HEAD: Normal with no signs of trauma. EYES: PERRL, extraocular movements intact, sclera anicteric, conjunctiva clear. No ptosis. ENT: Ears normal, nares patent, oropharynx clear without exudates, moist mucous membranes. NECK: Trachea midline, full range of motion, supple. LUNGS: Breath sounds equal, clear to auscultation bilaterally, no wheezes, no crackles, no accessory muscle use. HEART: Irregular rate and rhythm, S1, S2 without murmur, rub or gallop. ABDOMEN: Soft, nontender, nondistended, normoactive bowel sounds, no guarding, no rebound, no hepatosplenomegaly, no masses. EXTREMITIES: 2+ pulses, warm, well-perfused, 3+ edema in LE. NEUROLOGICAL: Cranial nerves II through XII grossly intact. Normal speech, gait not observed. PSYCH: Normal mood, normal affect. SKIN: Warm, dry, normal turgor, no rashes or lesions noted Laboratory Results - last 24 hr 08/18/17 08/18/17 08/18/17 18:10 18:10 18:10 WBC 4.7 RBC 4.89 Hgb 14.1 Hct 43.6 MCV 89.2 MCH 28.9 MCHC 32.4 RDW 14.2 Plt Count 198 MPV 11.4 H Neutrophils % 50.0 Lymphocytes % 34.8 Monocytes % 9.5 Eosinophils % 3.2 Basophils % 2.5 H Platelet Estimate Adequate Platelet Comment Slide scanned. few g PT with INR INR PTT (Actin FS) Sodium 134 L Potassium 4.8 Chloride 101 Carbon Dioxide 25 Anion Gap 8 BUN 18 Creatinine 0.9 Creat Clearance w eGFR > 60 POC Glucometer Random Glucose 377 H* Calcium 8.9 Phosphorus Total Bilirubin 1.1 H AST 62 H ALT 68 Alkaline Phosphatase 191 H Creatine Kinase Troponin I B-Natriuretic Peptide Total Protein 7.6 Albumin 3.6 Triglycerides Cholesterol Total LDL Cholesterol HDL Cholesterol TSH Urine HCG, Qual Negative 08/18/17 08/18/17 08/18/17 18:10 20:20 20:20 WBC RBC Hgb Hct MCV MCH MCHC RDW Plt Count MPV Neutrophils % Lymphocytes % Monocytes % Eosinophils % Basophils % Platelet Estimate Platelet Comment PT with INR 12.60 H INR 1.12 PTT (Actin FS) Sodium Potassium Chloride Carbon Dioxide Anion Gap BUN Creatinine Creat Clearance w eGFR POC Glucometer Random Glucose Calcium Phosphorus Total Bilirubin AST ALT Alkaline Phosphatase Creatine Kinase 74 Troponin I 0.03 B-Natriuretic Peptide 1471.03 H Total Protein Albumin Triglycerides Cholesterol Total LDL Cholesterol HDL Cholesterol TSH Urine HCG, Qual 08/19/17 08/19/17 08/19/17 00:06 05:55 05:55 WBC 3.7 L RBC 4.30 Hgb 12.6 D Hct 38.3 MCV 89.3 MCH 29.3 MCHC 32.8 RDW 14.0 Plt Count 189 MPV 11.6 H Neutrophils % 53.0 Lymphocytes % 30.6 Monocytes % 11.8 H Eosinophils % 3.7 Basophils % 0.9 Platelet Estimate Platelet Comment PT with INR 14.20 H INR 1.26 H PTT (Actin FS) 32.6 Sodium Potassium Chloride Carbon Dioxide Anion Gap BUN Creatinine Creat Clearance w eGFR POC Glucometer Random Glucose Calcium Phosphorus Total Bilirubin AST ALT Alkaline Phosphatase Creatine Kinase Troponin I B-Natriuretic Peptide Total Protein Albumin Triglycerides Cholesterol Total LDL Cholesterol HDL Cholesterol TSH Urine HCG, Qual 08/19/17 08/19/17 08/19/17 05:55 05:55 06:14 WBC RBC Hgb Hct MCV MCH MCHC RDW Plt Count MPV Neutrophils % Lymphocytes % Monocytes % Eosinophils % Basophils % Platelet Estimate Platelet Comment PT with INR INR PTT (Actin FS) Sodium 139 Potassium 4.1 Chloride 102 Carbon Dioxide 31 D Anion Gap 6 L BUN 13 D Creatinine 0.8 Creat Clearance w eGFR > 60 POC Glucometer [phone] Random Glucose 317 H* Calcium 8.3 L Phosphorus 3.9 Total Bilirubin 1.3 H AST 25 D ALT 53 D Alkaline Phosphatase 131 H D Creatine Kinase 57 Troponin I 0.03 B-Natriuretic Peptide Total Protein 6.2 L Albumin 3.0 L Triglycerides 59 Cholesterol 131 Total LDL Cholesterol 80 HDL Cholesterol 46 TSH 1.52 Urine HCG, Qual 08/19/17 08:20 WBC RBC Hgb Hct MCV MCH MCHC RDW Plt Count MPV Neutrophils % Lymphocytes % Monocytes % Eosinophils % Basophils % Platelet Estimate Platelet Comment PT with INR INR PTT (Actin FS) 84.0 H D Sodium Potassium Chloride Carbon Dioxide Anion Gap BUN Creatinine Creat Clearance w eGFR POC Glucometer Random Glucose Calcium Phosphorus Total Bilirubin AST ALT Alkaline Phosphatase Creatine Kinase Troponin I B-Natriuretic Peptide Total Protein Albumin Triglycerides Cholesterol Total LDL Cholesterol HDL Cholesterol TSH Urine HCG, Qual Active Medications Generic Name Dose Route Start Last Admin Trade Name Freq PRN Reason Stop Dose Admin Atorvastatin Calcium 10 mg 08/19/17 22:00 Lipitor - PO HS [facility] Chlorhexidine Gluconate 1 applic 08/19/17 22:00 Hibiclens For Decolonization - TP HS [facility] Digoxin 0.25 mg 08/19/17 16:00 Lanoxin Injection - IVPUSH 08/19/17 16:01 ONCE ONE Digoxin 0.25 mg 08/19/17 22:00 Lanoxin Injection - IVPUSH 08/19/17 22:01 ONCE ONE Furosemide 40 mg 08/20/17 10:00 Lasix Injection - IVPUSH DAILY [facility] Guaifenesin 5 ml 08/19/17 01:30 08/19/17 02:42 Diabetic Tussin Dm - PO 5 5ml Q4H PRN Administration COUGH Heparin Sodium (Porcine) 5,000 unit 08/19/17 00:42 Heparin - IVPUSH PRN PRN Heparin Sodium (Porcine) 1,000 unit 08/19/17 00:42 Heparin - IVPUSH PRN PRN Esmolol HCl 2,500,000 mcg in 250 mls @ 38.782 mls/hr 08/19/17 10:30 Brevibloc 2500 Mg/250 Ml - IVPB TITR [facility] Protocol 50 MCG/KG/MIN HEPARIN SOD,PORK IN 0.45% NACL 25,000 units in 500 mls @ 20 mls/hr 08/19/17 12 :00 Heparin-1/2ns 25,000 Units/500 IVPB TITR [facility] Protocol 1,000 UNITS/HR Insulin Aspart 1 vial 08/19/17 07:00 08/19/17 12:50 Novolog Vial Sliding Scale - SQ 2 units ACHS [facility] Administration Protocol Insulin Detemir 10 units 08/19/17 10:15 08/19/17 10:45 Levemir Vial SQ 10 units AM [facility] Administration Metoprolol Tartrate 50 mg 08/19/17 10:30 08/19/17 12:44 Lopressor - PO 50 mg BID [facility] Administration Mupirocin 1 applic 08/19/17 10:00 08/19/17 10:42 Bactroban Ointment (For Decolonization) - NS 08/24/17 09:59 1 applic BID [facility] Administration Warfarin Sodium 5 mg 08/19/17 18:00 Coumadin - PO DAILY@1800 [facility] ASSESSMENT/PLAN: The patient is a 56F with a PMH of DM and asthma found to be in new onset a-fib/ flutter. Neuro: - A&Ox3 - At baseline CV: New onset a-fib/flutter - EKG showing flutter - Currently on esmolol drip - Heparin drip - Asa 81mg Pulm: Questionable DIONICIO - Will order sleep study - Mallampatti 4 Endocrine: DM - Insulin 1 vial sq ACHS PPX: - Heparin drip FEN (Fluids, electrolytes, nutrition): - Cholesterol/sodium/fat diet Dispo: - T/f to tele Visit type - Emergency Visit Emergency Visit: Yes ED Registration Date: 08/18/17 Care time: The patient presented to the Emergency Department on the above date and was hospitalized for further evaluation of their emergent condition. - New Patient This patient is new to me today: Yes Date on this admission: 08/19/17 - Critical Care Critical Care patient: Yes Total Critical Care Time (in minutes): 43 Critical Care Statement: The care of this patient involved high complexity decision making to prevent further life threatening deterioration of the patient 's condition and/or to evaluate & treat vital organ system(s) failure or risk of failure.
--- NOTE | 2017-08-19 13:01 | PN ---
Teaching Attending Note Name of Resident: Jacqueline Aguayo ATTENDING PHYSICIAN STATEMENT I saw and evaluated the patient. I reviewed the resident's note and discussed the case with the resident. I agree with the resident's findings and plan as documented. SUBJECTIVE: No SOB, denies CP. feels her LE edema is better OBJECTIVE: NAD, Aox3 HEENT: MMM, JVD, No facial droop, round equal pupils CV; Regular rhythm , tachy . NO MRG. JVD + Lungs : bibasilar crackles Abd: soft, NT, ND , NL BS . Ext: 1+ pitting edema. 1+ DP pulses ASSESSMENT AND PLAN: 56 y/o lady with no recent medical care , and no known PMH who presented with SOB , and was found tohave A flutter with RVR and resultant CHF 1- A flutter with RVR. no evidence of infection, TSh Nl. No murmurs on heart exam. did not respond to cardizem, developed low BP on esmolol gtt at 38 mcg/kg/min . still tachy in 120s - started a digoxin load ( load only ). - start metoprolol, and taper Esmolol off. - follow echo for any structural abnormality - [id number] score of 4 --->4.8% risk of stroke/yr . this was d/w pt in details. risk of stroke w/o AC and risk of bleeding with AC were d/w her . she agrees to AC. due to having no Insurance, will start on coumadin tonight. she agrees - dc aspirin started last night . - will arrange Apt with a PCP , for INR monitor 2- New onset CHF. likely systolic due to tachycardic CMP. - responded to lasix in Er. - give another dose and cont daily if needed - echo pending - avoid CCB if possible - will introduce ACEI after rate control if BP tolerates 3- New diagnosis of DMII: per dick glucose. A1c pending - SSI pending her A1c to decide on terminal supervisor regimen 4- HTN: BP dropped with a trial of rate controlled. - cont meds as above . ACEI to be introduced later after rate control is achieved 5- Hyperlipidemia: LDL goal < 70 given her DM - start low dose lipitor Dispo: tx to tele after dc esmolol gtt .
[2017-08-19] MEDS ORDERED: ALBUTEROL SO4 0.083% IH SOL 2.5 MG/3 ML VIAL.NEB. NEB PRN (16:39)
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
[2017-08-19] MEDS ORDERED: WARFARIN NA 5 MG TABLET (UD) PO ONE (18:00)
[2017-08-19] MEDS ORDERED: WARFARIN NA 5 MG TABLET (UD) PO SCH (18:00)
[2017-08-19] MEDS ORDERED: CHLORHEXIDINE GLUCONATE 4% CLEANSER FOR DECOLONIZATION TP SCH (22:00)
[2017-08-19] MEDS ORDERED: ATORVASTATIN CA 10 MG TABLET (FP) PO SCH (22:00)
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
[2017-08-19] MEDS: HEPARIN SOD,PORK IN 0.45% NACL 25,000 UNITS/500 ML INFUS.BAG IVPB SCH (23:30)
[2017-08-20] MEDS: INSULIN SLIDING SCALE (NOVOLOG) 1 VIAL SQ SCH ×4 (06:10→21:20)
[2017-08-20] MEDS: INSULIN DETEMIR 100 UNITS/ML MDV SQ SCH (06:22)
[2017-08-20 08:39] LABS: BASO % 1.6 % (0-2.0); EOS % 5.1 % (0-4.5); MCH 28.8 pg (25.7-33.7); MCHC 32.1 g/dl (32.0-36.0); MEAN CELL VOLUME 89.5 fl (80-96); MEAN PLT VOLUME 11.9 fl (7.5-11.1); NEUT % 39.7 % (42.8-82.8); PLATELET COUNT 168 K/MM3 (134-434); RDW 14.2 % (11.6-15.6)
[2017-08-20 08:50] LABS: INR 1.16 (0.82-1.09); PROTHROMBIN TIME (PATIENT) 13.1 SEC (9.98-11.88)
[2017-08-20 09:02] LABS: ALBUMIN 2.7 g/dl (3.4-5.0); ANION GAP 9 (8-16); CALCIUM 8.9 mg/dL (8.5-10.1); CO2 30 mmol/L (21-32); CREATININE 0.8 mg/dL (0.55-1.02); GLUCOSE,RANDOM 118 mg/dL (74-106); SGPT/ALT 39 U/L (12-78)
[2017-08-20 09:06] LABS: ALK PHOS 100 U/L (45-117); BILIRUBIN,TOTAL 1.2 mg/dL (0.2-1.0); SGOT/AST 17 U/L (15-37); TOT PROT 5.8 g/dl (6.4-8.2)
--- NOTE | 2017-08-20 09:55 | PN ---
Teaching Attending Note Name of Resident: Jammie Murillo ATTENDING PHYSICIAN STATEMENT I saw and evaluated the patient. I reviewed the resident's note and discussed the case with the resident. I agree with the resident's findings and plan as documented. SUBJECTIVE: shortness of breath is much better today. no CP . OBJECTIVE: NAD, Aox3 HEENT: MMM, JVD, No facial droop, round equal pupils CV; Regular rhythm , tachy . NO MRG. JVD + Lungs : bibasilar crackles ( improved ) , decreased breath sounds at bases . Ext: 1+ pitting edema. 1+ DP pulses ASSESSMENT AND PLAN: 56 y/o lady with no recent medical care , and no known PMH who presented with SOB , and was found tohave A flutter with RVR and resultant CHF 1- A flutter with RVR. still tachy to high 120s on tele Echo reviewed: severely reduced EF. at least moderate MR, dilated LV and a mobile structure on AV - change metorpolol tartarate to succinate at 75 mg daily , start now - [id number] score of 4 --->4.8% risk of stroke/yr . cont heparin gtt in bridging to coumadin. give 5 mg tonight. - will d/w Card the need for YENNIFER to evaluate AV mobile structure 2- New onset systolic CHF. - cont lasix 40 daily ( Net neg 1600 cc yesterday ) - will start low dose lisinopril and titrate up as tolerated - need to repeat echo in 2 weeks after rate control to re-evaluate EF 3- New diagnosis of DMII: A1c 12 -need retirement insulin per A1c - cont levemir and SSI 4- HTN: - start low dose ACEI as above - start torpol as above 5- Hyperlipidemia: LDL goal < 70 given her DM - low dose lipitor Dispo: Cont to be HLOC
[2017-08-20] MEDS ORDERED: METOPROLOL SUCCINATE 50 MG TAB.SR.24H (FP) PO SCH (10:00)
[2017-08-20] MEDS ORDERED: MUPIROCIN 2% TOPICAL OINTMENT FOR DECOLONIZATION NS SCH (10:00)
[2017-08-20] MEDS ORDERED: FUROSEMIDE 40 MG/4 ML INJECTABLE VIAL IVPUSH SCH (10:00)
[2017-08-20] MEDS ORDERED: METOPROLOL TARTRATE 50 MG TABLET (FP) PO SCH (10:00)
[2017-08-20] MEDS: FUROSEMIDE 40 MG/4 ML INJECTABLE VIAL IVPUSH SCH (10:17)
[2017-08-20] MEDS: LISINOPRIL 5 MG TABLET (FP) PO SCH (10:18)
--- NOTE | 2017-08-20 10:45 | PN ---
Progress Note, Physician History of Present Illness: Feels improved Less dyspnea Off esmolol Tele: Afib 90-120s - Current Medication List Current Medications: Active Medications Albuterol Sulfate (Ventolin 0.083% Nebulizer Soln -) 1 amp NEB Q6H PRN PRN Reason: SHORT OF BREATH/WHEEZING Atorvastatin Calcium (Lipitor -) 10 mg PO HS [facility] Furosemide (Lasix Injection -) 40 mg IVPUSH DAILY [facility] Last Admin: 08/20/17 10:17 Dose: 40 mg Guaifenesin (Diabetic Tussin Dm -) 5 ml PO Q4H PRN PRN Reason: COUGH Heparin Sodium (Porcine) (Heparin -) 1,000 unit IVPUSH PRN PRN PRN Reason: Heparin Heparin Sodium (Porcine) (Heparin -) 5,000 unit IVPUSH PRN PRN PRN Reason: Heparin Esmolol HCl (Brevibloc 2500 Mg/250 Ml -) 2,500,000 mcg in 250 mls @ 38.782 mls/ hr IVPB TITR [facility]; 50 MCG/KG/MIN PRN Reason: Protocol Last Admin: 08/20/17 05:12 Dose: Not Given HEPARIN SOD,PORK IN 0.45% NACL (Heparin-1/2ns 25,000 Units/500) 25,000 units in 500 mls @ 20 mls/hr IVPB TITR [facility]; 1,000 UNITS/HR PRN Reason: Protocol Last Admin: 08/19/17 23:30 Dose: 950 units/hr, 19 mls/hr Insulin Aspart (Novolog Vial Sliding Scale -) 1 vial SQ ACHS [facility] PRN Reason: Protocol Last Admin: 08/20/17 06:10 Dose: Not Given Insulin Detemir (Levemir Vial) 10 units SQ AM [facility] Last Admin: 08/20/17 06:22 Dose: 10 unit Lisinopril (Prinivil) 5 mg PO DAILY [facility] Last Admin: 08/20/17 10:18 Dose: 5 mg Metoprolol Succinate (Toprol Xl -) 75 mg PO DAILY [facility] Last Admin: 08/20/17 10:17 Dose: 75 mg Warfarin Sodium (Coumadin -) 5 mg PO DAILY@1800 [facility] - Objective Vital Signs: Vital Signs Temperature 97.6 F 08/20/17 06:00 Pulse Rate 92 H 08/20/17 06:00 Respiratory Rate 20 08/20/17 06:00 Blood Pressure 149/84 08/20/17 06:00 O2 Sat by Pulse Oximetry (%) 97 08/20/17 00:00 Constitutional: Yes: No Distress, Calm Eyes: Yes: Conjunctiva Clear HENT: Yes: WNL Neck: Yes: WNL Cardiovascular: Yes: Pulse Irregular Respiratory: Yes: Rales Gastrointestinal: Yes: Normal Bowel Sounds Musculoskeletal: Yes: WNL Extremities: Yes: WNL Edema: LLE: Trace, RLE: Trace Labs: CBC, BMP 08/20/17 07:30 08/20/17 07:30 INR, PTT INR 1.16 (0.82-1.09) H 08/20/17 07:30 Assessment/Plan a/p: 56 f no known pmhx (does not follow with doctor) here with sob, cough, wheezing. new aflutter: -on esmolol gtt off on PO BB -chadsvasc is 4 so has indication for ac. cont hep gtt and initiate warfarin -cont tele new acute chf: -echo report reviewed showing severe global LV dysfunction, moderate MR and ?AV echodensity. Doubt SBE as afebrile and no peripheral stigmata for SBE -possibly related to aflutter with rvr, cont rate control -cont lasix 40 iv qd, monitor daily bmp, wts -no signs acs, ce's neg x2 htn: -new diagnosis here -Off esmolol and on PO regimen
[2017-08-20] MEDS ORDERED: INSULIN (NOVOLOG) ASPART 100 UNITS/ML 10ML VIAL ONE ×3 (11:47→21:05)
[2017-08-20] MEDS: HEPARIN NA (PORCINE) 5,000 UNITS/ML 1ML VIAL IVPUSH PRN ×2 (12:45→21:13)
--- NOTE | 2017-08-20 12:50 | PN ---
Physical Exam: SUBJECTIVE: Patient seen and examined by me at bedside. Overnight patient was downgraded from ICU to telemetry and taken off Cardizem drip. Overnight cardiac monitoring revealed A.flutter with RVR and consistent tahcycardia. However, patient denies any shortness of breath, chest pain, palpitations, fever , chills, nausea, vomiting, abdominal pain, headaches. OBJECTIVE: Vital Signs Period Temp Pulse Resp BP Sys/Soriano Pulse Ox Last 24 Hr 97.6 F-98.4 F 78-102 18-24 128-149/56-96 97-97 GENERAL: The patient is awake, alert, and fully oriented, in no acute distress. EYES: PERRL, extraocular movements intact, sclera anicteric, conjunctiva clear. ENT: Oropharynx clear without exudates, moist mucous membranes. NECK: (+) JVD bilaterally LUNGS: Decreased breath sounds throughout due to body habitus and poor inspiratory effort. Rhonchi and crackles heard throughout lung bases bilaterally. HEART: Regular rate and rhythm. No M/R/G ABDOMEN: Soft,Obese, nontender, nondistended, normoactive bowel sounds, no guarding, no rebound EXTREMITIES: 1+ pitting edema bilaterally with chronic venous stasis from ankles down with scaly skin. (+) Lymphedema NEUROLOGICAL: Cranial nerves II through XII grossly intact. Normal speech. No facial droop, motor strength 5/5 bilaterally with sensory intact PSYCH: Normal mood, normal affect. SKIN: Warm, dry, normal turgor, no rashes or lesions noted Laboratory Results - last 24 hr 08/19/17 08/19/17 08/19/17 05:55 12:41 16:41 WBC Corrected WBC (auto) RBC Hgb Hct MCV MCH MCHC RDW Plt Count MPV Neutrophils % Lymphocytes % Monocytes % Eosinophils % Basophils % Manual Slide Review Platelet Comment PT with INR INR PTT (Actin FS) Sodium Potassium Chloride Carbon Dioxide Anion Gap BUN Creatinine Creat Clearance w eGFR POC Glucometer [phone] Random Glucose Hemoglobin A1c % 12.5 H Calcium Total Bilirubin AST ALT Alkaline Phosphatase Total Protein Albumin 08/20/17 08/20/17 08/20/17 05:25 07:30 07:30 WBC Cancelled Corrected WBC (auto) Cancelled RBC Cancelled Hgb Cancelled Hct Cancelled MCV Cancelled MCH Cancelled MCHC Cancelled RDW Cancelled Plt Count Cancelled MPV Cancelled Neutrophils % Lymphocytes % Monocytes % Eosinophils % Basophils % Manual Slide Review Cancelled Platelet Comment Cancelled PT with INR INR PTT (Actin FS) 35.9 H D Sodium Potassium Chloride Carbon Dioxide Anion Gap BUN Creatinine Creat Clearance w eGFR POC Glucometer 112 Random Glucose Hemoglobin A1c % Calcium Total Bilirubin AST ALT Alkaline Phosphatase Total Protein Albumin 08/20/17 08/20/17 08/20/17 07:30 07:30 07:30 WBC 4.0 Corrected WBC (auto) RBC 4.50 Hgb 13.0 Hct 40.3 MCV 89.5 MCH 28.8 MCHC 32.1 RDW 14.2 Plt Count 168 MPV 11.9 H Neutrophils % 39.7 L D Lymphocytes % 42.9 H D Monocytes % 10.7 H Eosinophils % 5.1 H Basophils % 1.6 Manual Slide Review Platelet Comment PT with INR 13.10 H INR 1.16 H PTT (Actin FS) Sodium 141 Potassium 3.9 Chloride 102 Carbon Dioxide 30 Anion Gap 9 BUN 13 Creatinine 0.8 Creat Clearance w eGFR > 60 POC Glucometer Random Glucose 118 H D Hemoglobin A1c % Calcium 8.9 Total Bilirubin 1.2 H AST 17 D ALT 39 D Alkaline Phosphatase 100 D Total Protein 5.8 L Albumin 2.7 L 08/20/17 08/20/17 11:05 11:43 WBC Corrected WBC (auto) RBC Hgb Hct MCV MCH MCHC RDW Plt Count MPV Neutrophils % Lymphocytes % Monocytes % Eosinophils % Basophils % Manual Slide Review Platelet Comment PT with INR INR PTT (Actin FS) 41.7 H Sodium Potassium Chloride Carbon Dioxide Anion Gap BUN Creatinine Creat Clearance w eGFR POC Glucometer 166 Random Glucose Hemoglobin A1c % Calcium Total Bilirubin AST ALT Alkaline Phosphatase Total Protein Albumin Active Medications Generic Name Dose Route Start Last Admin Trade Name Freq PRN Reason Stop Dose Admin Albuterol Sulfate 1 amp 08/19/17 16:39 Ventolin 0.083% Nebulizer Soln - NEB Q6H PRN SHORT OF BREATH/WHEEZING Atorvastatin Calcium 10 mg 08/20/17 22:00 Lipitor - PO HS [facility] Furosemide 40 mg 08/20/17 10:00 08/20/17 10:17 Lasix Injection - IVPUSH 40 mg DAILY [facility] Administration Guaifenesin 5 ml 08/19/17 23:32 Diabetic Tussin Dm - PO Q4H PRN COUGH Heparin Sodium (Porcine) 1,000 unit 08/19/17 23:32 Heparin - IVPUSH PRN PRN Heparin Heparin Sodium (Porcine) 5,000 unit 08/19/17 23:32 Heparin - IVPUSH PRN PRN Heparin Esmolol HCl 2,500,000 mcg in 250 mls @ 38.782 mls/hr 08/19/17 23:32 08/20/17 05:12 Brevibloc 2500 Mg/250 Ml - IVPB Not Given TITR [facility] Protocol 50 MCG/KG/MIN HEPARIN SOD,PORK IN 0.45% NACL 25,000 units in 500 mls @ 20 mls/hr 08/19/17 23 :32 08/19/17 23:30 Heparin-1/2ns 25,000 Units/500 IVPB 950 units/hr TITR [facility] 19 mls/hr Protocol Administration 1,000 UNITS/HR Insulin Aspart 1 vial 08/20/17 07:00 08/20/17 11:47 Novolog Vial Sliding Scale - SQ 2 unit ACHS [facility] Administration Protocol Insulin Detemir 10 units 08/20/17 07:00 08/20/17 06:22 Levemir Vial SQ 10 unit AM [facility] Administration Lisinopril 5 mg 08/20/17 10:00 08/20/17 10:18 Prinivil PO 5 mg DAILY [facility] Administration Metoprolol Succinate 75 mg 08/20/17 10:00 08/20/17 10:17 Toprol Xl - PO 75 mg DAILY [facility] Administration Warfarin Sodium 5 mg 08/20/17 18:00 Coumadin - PO DAILY@1800 [facility]08/18/17 CXR -> probably mild congestion, cardiomegaly. 08/18/17 Vascular study -> no DVTs to bharat LE. 08/19/17 Echo -> 0.7 x 0.4 cm mobile echodenisty on Left ventricular surface of aortic valve. Ddx: small strand, fibroelastoma, but vegetataion cannot be r/o. Severe global hypokinesis of Left ventricle. Left ventricular systolic function severely reduced. Mild TR. Moderate MR. Trace AR. ASSESSMENT/PLAN: Patient is a 56 year old female with PMHx of DM who presenting with cough and wheezing x 1 week, found to have new onset Atrial flutter and CHF. A.Flutter with RVR -CHADSVASC Score 4 -Patient is still tachy up to the 120's on cardiac monitoring -Echo shows severely redused EF likely due to the tachy cardia. -Changed Metoprlol Tartarate to Succinate 75mg daily starting today -Started on Warfarin 5mg daily and currently bridging her with Heparin drip -Will need to have repeat ECHO in a few weeks and possible YENNIFER for mobile structure found on ECHO. Patient however shows no signs of infection or symptoms of endocarditis. Will need to follow up with cardiology as outpatient. New Onset of Systolic CHF -Possibly due to uncontrolled A.fib -Will continue Lasix 40mg daily -Strict I&O's and daily weight. Balance in the last 24 hours -1665 -Will begin Lisinopril 5mg daily -Repeat ECHO in a couple of weeks to re-evaluate EF New Diagnosis of DMII -A1C >12 -Will need to be on fdc insulin upon discharge -Will continue Levemir 10 units daily -No novolog required -Continue BGM and ISS HTN -Continue Metoprolol 75mg daily -Lisinopril added -Continue to monitor BP HLD -LDL >70 and due to her diagnosis of DM patient will need to have a goal <70 -Started on Lipitor 10mg Cough with Dyspnea-Improved -Likely secondary to CHF exacerbation -Will continue Lasix IV F/E/N -On no fluids -Electrolytes wnl -Sodium and Diabetic controlled diet Prophylaxis -High risk. Coumadin 5mg and bridging with Heparin drip for DVT -No GI required Disposition -Full code -Continues to have A.flutter on tele. Patient still not therapeutic INR. Will remain another night Visit type - Emergency Visit Emergency Visit: Yes ED Registration Date: 08/18/17 Care time: The patient presented to the Emergency Department on the above date and was hospitalized for further evaluation of their emergent condition. - New Patient This patient is new to me today: Yes Date on this admission: 08/18/17 - Critical Care Critical Care patient: No
[2017-08-20] MEDS: WARFARIN NA 5 MG TABLET (UD) PO SCH (17:05)
[2017-08-20] MEDS: HEPARIN SOD,PORK IN 0.45% NACL 25,000 UNITS/500 ML INFUS.BAG IVPB SCH (21:14)
[2017-08-20] MEDS: ATORVASTATIN CA 10 MG TABLET (FP) PO SCH (21:14)
[2017-08-20] MEDS ORDERED: CHLORHEXIDINE GLUCONATE 4% CLEANSER FOR DECOLONIZATION TP SCH (22:00)
[2017-08-21] MEDS: INSULIN SLIDING SCALE (NOVOLOG) 1 VIAL SQ SCH ×4 (06:26→22:58)
[2017-08-21] MEDS: INSULIN DETEMIR 100 UNITS/ML MDV SQ SCH (06:28)
[2017-08-21 08:07] LABS: MCH 28.6 pg (25.7-33.7); MCHC 32.1 g/dl (32.0-36.0); MEAN CELL VOLUME 89.1 fl (80-96); MEAN PLT VOLUME 10.9 fl (7.5-11.1); PLATELET COUNT 174 K/MM3 (134-434); RDW 14.1 % (11.6-15.6); WHITE BLOOD COUNT 3.4 K/mm3 (4.0-10.0)
--- NOTE | 2017-08-21 08:47 | PN ---
Progress Note, Physician History of Present Illness: No complaints Tele: Afib to 120s No palpitations (+) cough at night - Current Medication List Current Medications: Active Medications Albuterol Sulfate (Ventolin 0.083% Nebulizer Soln -) 1 amp NEB Q6H PRN PRN Reason: SHORT OF BREATH/WHEEZING Atorvastatin Calcium (Lipitor -) 10 mg PO HS [facility] Last Admin: 08/20/17 21:14 Dose: 10 mg Furosemide (Lasix Injection -) 40 mg IVPUSH DAILY [facility] Last Admin: 08/20/17 10:17 Dose: 40 mg Guaifenesin (Diabetic Tussin Dm -) 5 ml PO Q4H PRN PRN Reason: COUGH Heparin Sodium (Porcine) (Heparin -) 1,000 unit IVPUSH PRN PRN PRN Reason: Heparin Last Admin: 08/20/17 21:13 Dose: 1,000 unit Heparin Sodium (Porcine) (Heparin -) 5,000 unit IVPUSH PRN PRN PRN Reason: Heparin Esmolol HCl (Brevibloc 2500 Mg/250 Ml -) 2,500,000 mcg in 250 mls @ 38.782 mls/ hr IVPB TITR [facility]; 50 MCG/KG/MIN PRN Reason: Protocol Last Admin: 08/20/17 05:12 Dose: Not Given HEPARIN SOD,PORK IN 0.45% NACL (Heparin-1/2ns 25,000 Units/500) 25,000 units in 500 mls @ 20 mls/hr IVPB TITR [facility]; 1,000 UNITS/HR PRN Reason: Protocol Last Admin: 08/20/17 21:14 Dose: 1,150 units/hr, 23 mls/hr Insulin Aspart (Novolog Vial Sliding Scale -) 1 vial SQ ACHS [facility] PRN Reason: Protocol Last Admin: 08/21/17 06:26 Dose: Not Given Insulin Detemir (Levemir Vial) 10 units SQ AM [facility] Last Admin: 08/21/17 06:28 Dose: 10 unit Lisinopril (Prinivil) 5 mg PO DAILY [facility] Last Admin: 08/20/17 10:18 Dose: 5 mg Metoprolol Succinate (Toprol Xl -) 75 mg PO DAILY [facility] Last Admin: 08/20/17 10:17 Dose: 75 mg Warfarin Sodium (Coumadin -) 5 mg PO DAILY@1800 [facility] Last Admin: 08/20/17 17:05 Dose: 5 mg - Objective Vital Signs: Vital Signs Temperature 98.2 F 08/21/17 06:21 Pulse Rate 88 08/21/17 06:21 Respiratory Rate 18 08/21/17 06:21 Blood Pressure 150/71 08/21/17 06:21 O2 Sat by Pulse Oximetry (%) 97 08/20/17 22:00 Constitutional: Yes: No Distress Eyes: Yes: WNL HENT: Yes: WNL Neck: Yes: WNL Cardiovascular: Yes: Tachycardia, Pulse Irregular Respiratory: Yes: CTA Bilaterally Gastrointestinal: Yes: Normal Bowel Sounds Musculoskeletal: Yes: WNL Extremities: Yes: WNL Edema: LLE: 1+, RLE: 1+ Labs: CBC, BMP 08/21/17 07:45 08/20/17 07:30 INR, PTT INR 1.16 (0.82-1.09) H 08/20/17 07:30 Assessment/Plan a/p: 56 f no known pmhx (does not follow with doctor) here with sob, cough, wheezing. new aflutter: -on esmolol gtt off on PO BB -Remains tachy with RVR - will increase metoprolol to 100mg daily -chadsvasc is 4, cont hep gtt and warfarin. -cont tele new acute chf: -echo report reviewed showing severe global LV dysfunction, moderate MR and ?AV echodensity. Doubt SBE as afebrile and no peripheral stigmata for SBE. -possibly related to aflutter with rvr, cont rate control -cont lasix 40 iv qd, monitor daily bmp, wts -no signs acs, ce's neg x2 htn: -new diagnosis here -Off esmolol and on PO regimen
[2017-08-21] MEDS: FUROSEMIDE 40 MG/4 ML INJECTABLE VIAL IVPUSH SCH (09:52)
[2017-08-21] MEDS: LISINOPRIL 5 MG TABLET (FP) PO SCH (09:52)
[2017-08-21] MEDS: METOPROLOL SUCCINATE 100 MG TAB.SR.24H (FP) PO SCH (09:52)
[2017-08-21 15:15] LABS: INR 1.21 (0.82-1.09); PROTHROMBIN TIME (PATIENT) 13.7 SEC (9.98-11.88)
--- NOTE | 2017-08-21 16:07 | PN ---
Progress Note (short form) - Note Progress Note: Subjective: No fever or chills. has no SOB or CP . Objective: Vital Signs: Last Vital Signs Temp Pulse Resp BP Pulse Ox 97.8 F 89 18 123/77 98 08/21/17 10:00 08/21/17 10:00 08/21/17 10:00 08/21/17 10:00 08/21/17 10:15 Laboratory Results - last 24 hr 08/20/17 08/20/17 08/20/17 16:32 17:30 21:12 WBC RBC Hgb Hct MCV MCH MCHC RDW Plt Count MPV PT with INR INR PTT (Actin FS) 46.1 H POC Glucometer 173 214 08/21/17 08/21/17 08/21/17 03:00 05:48 07:45 WBC 3.4 L RBC 4.49 Hgb 12.8 Hct 40.0 MCV 89.1 MCH 28.6 MCHC 32.1 RDW 14.1 Plt Count 174 MPV 10.9 PT with INR INR PTT (Actin FS) 54.1 H POC Glucometer 141 08/21/17 08/21/17 08/21/17 07:45 11:47 14:51 WBC RBC Hgb Hct MCV MCH MCHC RDW Plt Count MPV PT with INR 13.70 H INR 1.21 H PTT (Actin FS) 55.9 H POC Glucometer 224 I&O: Intake & Output 08/18/17 08/19/17 08/20/17 08/21/17 23:59 23:59 23:59 23:59 Intake Total 984 520 624 Output Total 2650 Balance -1666 520 624 Weight 285 lb 286 lb 9.615 oz 318 lb 6 oz 317 lb Physical Exam: NAD, Aox3 HEENT: MMM, No facial droop, CV; Regular rhythm , . NO MRG. Lungs : clear lungs today. Decreased breath sounds at bases . Ext: 1+ pitting edema. 1+ DP pulses. ASSESSMENT AND PLAN: 56 y/o lady with no recent medical care , and no known PMH who presented with SOB , and was found tohave A flutter with RVR and resultant CHF 1- A flutter with RVR. on tele , HR is under 100 most of the time Echo reviewed: severely reduced EF. at least moderate MR, dilated LV and a mobile structure on AV - toprol 100 daily - [id number] score of 4 --->4.8% risk of stroke/yr . cont heparin gtt in bridging to coumadin. give 7.5 mg tonight. ( can't afford NOACS ) - will d/w Card the need for YENNIFER to evaluate AV mobile structure 2- New onset systolic CHF. - cont lasix 40 daily ( I&O are not documented correctly yesterday ) - cont low dose lisinopril - need to repeat echo in few weeks after rate control to re-evaluate EF 3- New diagnosis of DMII: A1c 12 -need retirement insulin per A1c - cont levemir and SSI 4- HTN: - Lisinopril - toprol 5- Hyperlipidemia: LDL goal < 70 given her DM - low dose lipitor Dispo: Cont to be HLOC Visit type - Emergency Visit Emergency Visit: Yes ED Registration Date: 08/18/17 Care time: The patient presented to the Emergency Department on the above date and was hospitalized for further evaluation of their emergent condition. - New Patient This patient is new to me today: No - Critical Care Critical Care patient: No
[2017-08-21] MEDS: WARFARIN NA 5 MG TABLET (UD) PO SCH (17:14)
[2017-08-21] MEDS ORDERED: WARFARIN NA 2.5 MG TABLET (FP) PO ONE (18:00)
[2017-08-21] MEDS ORDERED: PT OWN MED DRAWER 7, Y5N ONE (20:16)
--- NOTE | 2017-08-21 21:48 | PN ---
Progress Note, Physician - Current Medication List Current Medications: Active Medications Albuterol Sulfate (Ventolin 0.083% Nebulizer Soln -) 1 amp NEB Q6H PRN PRN Reason: SHORT OF BREATH/WHEEZING Atorvastatin Calcium (Lipitor -) 10 mg PO HS [facility] Last Admin: 08/20/17 21:14 Dose: 10 mg Furosemide (Lasix Injection -) 40 mg IVPUSH DAILY [facility] Last Admin: 08/21/17 09:52 Dose: 40 mg Guaifenesin (Diabetic Tussin Dm -) 5 ml PO Q4H PRN PRN Reason: COUGH Heparin Sodium (Porcine) (Heparin -) 1,000 unit IVPUSH PRN PRN PRN Reason: Heparin Last Admin: 08/20/17 21:13 Dose: 1,000 unit Heparin Sodium (Porcine) (Heparin -) 5,000 unit IVPUSH PRN PRN PRN Reason: Heparin HEPARIN SOD,PORK IN 0.45% NACL (Heparin-1/2ns 25,000 Units/500) 25,000 units in 500 mls @ 20 mls/hr IVPB TITR [facility]; 1,000 UNITS/HR PRN Reason: Protocol Last Titration: 08/21/17 09:48 Dose: 1,150 units/hr, 23 mls/hr Insulin Aspart (Novolog Vial Sliding Scale -) 1 vial SQ ACHS [facility] PRN Reason: Protocol Last Admin: 08/21/17 16:33 Dose: 2 unit Insulin Detemir (Levemir Vial) 10 units SQ AM [facility] Last Admin: 08/21/17 06:28 Dose: 10 unit Lisinopril (Prinivil) 5 mg PO DAILY [facility] Last Admin: 08/21/17 09:52 Dose: 5 mg Metoprolol Succinate (Toprol Xl -) 100 mg PO DAILY [facility] Last Admin: 08/21/17 09:52 Dose: 100 mg Warfarin Sodium (Coumadin -) 5 mg PO DAILY@1800 [facility] Last Admin: 08/21/17 17:14 Dose: 5 mg - Objective Vital Signs: Vital Signs Temperature 98.1 F 08/21/17 14:00 Pulse Rate 98 H 08/21/17 14:00 Respiratory Rate 18 08/21/17 14:00 Blood Pressure 132/78 08/21/17 14:00 O2 Sat by Pulse Oximetry (%) 98 08/21/17 10:15 Labs: CBC, BMP 12/17/17 07:45 08/20/17 07:30 INR, PTT INR 1.21 (0.82-1.09) H 08/21/17 14:51 Assessment/Plan Echo 08/21: mild LVE, severely decr LVEF (global). mild LAE. ecc MR, at least moderate (may be underestimated). 0.7cm mobile density on LV side of AV may represent small strand or fibroelastoma, veg cannot be excluded. + pleural effusion a/p: 56 f no known pmhx (does not follow with doctor) here with sob, cough, wheezing. new aflutter: -metoprolol started here -Remained tachy 08/21 - increased metoprolol to 100mg daily -chadsvasc is 4, cont hep gtt and warfarin. -cont tele -can eventually consider YENNIFER/DCCV, however pt would be at hi risk for embolic event if she does not comply with 4 weeks of AC post...given her prior lack of MD f/u, would defer DCCV (if HR can be otherwise controlled) until she follows up in office and shows compliance with meds new acute chf: -echo with severe, global LV dysfunction, at least moderate MR (eccentric) -possible tachy-CMP -cont lasix 40 iv qd, monitor daily bmp, wts -should have reassessment of MR severity with YENNIFER once better diuresed and adequately HR controlled (rule out primary severe MR causing LV dysfunction) -no isch ecg, ce's neg x2 AV density: -findings c/w fibrous strand vs fibroelastoma > vegetation -no fever or leucocytosis, no stigmata of IE--will check BCx htn: -new diagnosis here -bp controlled with b-b regimen
[2017-08-21] MEDS: ATORVASTATIN CA 10 MG TABLET (FP) PO SCH (22:58)
[2017-08-21] MEDS: HEPARIN SOD,PORK IN 0.45% NACL 25,000 UNITS/500 ML INFUS.BAG IVPB SCH (22:59)
[2017-08-22] MEDS: HEPARIN SOD,PORK IN 0.45% NACL 25,000 UNITS/500 ML INFUS.BAG IVPB SCH ×3 (06:04→23:15)
[2017-08-22] MEDS: INSULIN DETEMIR 100 UNITS/ML MDV SQ SCH (06:04)
[2017-08-22] MEDS: INSULIN SLIDING SCALE (NOVOLOG) 1 VIAL SQ SCH ×4 (06:07→22:16)
[2017-08-22] MEDS ORDERED: INSULIN (NOVOLOG) ASPART 100 UNITS/ML 10ML VIAL ONE (06:34)
[2017-08-22 07:40] LABS: MCH 28.7 pg (25.7-33.7); MCHC 32.2 g/dl (32.0-36.0); MEAN CELL VOLUME 89.1 fl (80-96); PLATELET COUNT 186 K/MM3 (134-434); RDW 13.9 % (11.6-15.6); WHITE BLOOD COUNT 3.9 K/mm3 (4.0-10.0)
[2017-08-22 09:27] LABS: INR 1.19 (0.82-1.09); PROTHROMBIN TIME (PATIENT) 13.4 SEC (9.98-11.88)
[2017-08-22] MEDS: LISINOPRIL 5 MG TABLET (FP) PO SCH (10:18)
[2017-08-22] MEDS: FUROSEMIDE 40 MG/4 ML INJECTABLE VIAL IVPUSH SCH (10:18)
[2017-08-22] MEDS: METOPROLOL SUCCINATE 100 MG TAB.SR.24H (FP) PO SCH ×2 (10:18→22:15)
[2017-08-22] MEDS ORDERED: METOPROLOL SUCCINATE 100 MG TAB.SR.24H (FP) PO SCH (10:59)
--- NOTE | 2017-08-22 11:13 | PN ---
Progress Note, Physician Chief Complaint: cough History of Present Illness: cough improved. in past, has been triggered by chemical odors, told "borderline asthma" previously. this time had cough with clear mucous, denies other URI sx's--? if chf sx or not no sob/orthopnea no cp denies palpitations presently denies every etoh excess, denies drugs - Current Medication List Current Medications: Active Medications Albuterol Sulfate (Ventolin 0.083% Nebulizer Soln -) 1 amp NEB Q6H PRN PRN Reason: SHORT OF BREATH/WHEEZING Atorvastatin Calcium (Lipitor -) 10 mg PO HS [facility] Last Admin: 08/21/17 22:58 Dose: 10 mg Furosemide (Lasix Injection -) 40 mg IVPUSH DAILY [facility] Last Admin: 08/22/17 10:18 Dose: 40 mg Guaifenesin (Diabetic Tussin Dm -) 5 ml PO Q4H PRN PRN Reason: COUGH Heparin Sodium (Porcine) (Heparin -) 1,000 unit IVPUSH PRN PRN PRN Reason: Heparin Last Admin: 08/20/17 21:13 Dose: 1,000 unit Heparin Sodium (Porcine) (Heparin -) 5,000 unit IVPUSH PRN PRN PRN Reason: Heparin HEPARIN SOD,PORK IN 0.45% NACL (Heparin-1/2ns 25,000 Units/500) 25,000 units in 500 mls @ 20 mls/hr IVPB TITR [facility]; 1,000 UNITS/HR PRN Reason: Protocol Last Admin: 08/22/17 06:04 Dose: Not Given Insulin Aspart (Novolog Vial Sliding Scale -) 1 vial SQ ACHS [facility] PRN Reason: Protocol Last Admin: 08/22/17 06:07 Dose: Not Given Insulin Detemir (Levemir Vial) 10 units SQ AM [facility] Last Admin: 08/22/17 06:04 Dose: 10 unit Lisinopril (Prinivil) 5 mg PO DAILY [facility] Last Admin: 08/22/17 10:18 Dose: 5 mg Metoprolol Succinate (Toprol Xl -) 150 mg PO DAILY [facility] Metoprolol Succinate (Toprol Xl -) 50 mg PO ONCE ONE Stop: 08/22/17 11:01 Warfarin Sodium (Coumadin -) 5 mg PO DAILY@1800 [facility] Last Admin: 08/21/17 17:14 Dose: 5 mg - Objective Vital Signs: Vital Signs Temperature 97.6 F 08/22/17 06:34 Pulse Rate 94 H 08/22/17 06:34 Respiratory Rate 20 08/22/17 06:34 Blood Pressure 146/91 08/22/17 06:34 O2 Sat by Pulse Oximetry (%) 96 08/21/17 21:00 Constitutional: Yes: No Distress, Calm, Obese Eyes: No: Sclera Icterus HENT: No: Nasal Congestion Cardiovascular: Yes: Pulse Irregular, JVD, S1, S2, Other (PMI non diplaced). No : Gallop, Murmur Respiratory: Yes: CTA Bilaterally. No: Accessory Muscle Use, Rales, Wheezes Gastrointestinal: Yes: Normal Bowel Sounds, Soft. No: Tenderness Musculoskeletal: Yes: Other (No kyphosis) Extremities: No: Cold, Cyanosis Edema: No Integumentary: No: Jaundice Neurological: Yes: Alert, Oriented (x3) Psychiatric: No: Agitated Labs: CBC, BMP 08/22/17 07:22 08/20/17 07:30 INR, PTT INR 1.19 (0.82-1.09) H 08/22/17 07:22 - ....Imaging EKG: Other (tele: AFL, HRs good (rare 120s)) Assessment/Plan Echo 08/21: mild LVE, severely decr LVEF (global). mild LAE. ecc MR, at least moderate (may be underestimated). 0.7cm mobile density on LV side of AV may represent small strand or fibroelastoma, veg cannot be excluded. + pleural effusion a/p: 56 f no known pmhx (does not follow with doctor) here with sob, cough, wheezing. new aflutter: -metoprolol started here, dose incr'd to 100 qd on 10/22 for rapid HRs -? underlying tachy-CMP here--aggressive HR control efforts -change metopr succinate to 100 bid (better 24 hr drug levels than qd dosing)-- observe for any asthmatic sx's -monitor tele for HR control while pt ambulates (still briefly 120s at times, ? due to oob to bathroom) -chadsvasc is 4, cont hep gtt and warfarin. -cont tele -can eventually consider YENNIFER/DCCV, however pt would be at hi risk for embolic event if she does not comply with 4 weeks of AC post...given her prior lack of MD f/u and currently no medical insurance/rx drug coverage, she is high risk for AC med non-adherence. -hence, will cont rate control strategy for now, and defer DCCV if HR can be otherwise controlled, until she follows up in office and shows compliance with meds new acute chf: -echo with severe, global LV dysfunction, at least moderate MR (eccentric) -possible tachy-CMP, vs hypertensive (bp high here, no f/u in long time), vs ? obesity/DIONICIO related, less likely sec to primary MR -BNP 1400 -08/22: wt declining, JVD persists, observe for sob with ambulation today. cont lasix 40 iv qd, monitor daily bmp, wts -should have reassessment of MR severity with YENNIFER once better diuresed and adequately HR controlled as outpt, to rule out primary severe MR causing LV dysfunction (in which case MV surgery may be indicated) -no isch ecg, ce's neg x2, no angina sx suspected. defer cath. pharm MPI while here to r/o hi risk ischemia. -pt advised of importance of cardio f/u, and told to contact our office or, if insurance/finances are an issue, she was given name of [facility] to contact -cont metopr (also for AFib hr control), AMARILIS as doing AV density: -findings c/w fibrous strand vs fibroelastoma > vegetation -no fever or leucocytosis, no stigmata of IE--will check BCx htn: -new diagnosis here -bp better controlled with b-b and AMARILIS regimen for LV dysfunction
[2017-08-22] MEDS ORDERED: METOPROLOL SUCCINATE 50 MG TAB.SR.24H (FP) PO ONE (12:30)
[2017-08-22 12:58] LABS: ANION GAP 5 (8-16); CALCIUM 8.5 mg/dL (8.5-10.1); CO2 33 mmol/L (21-32); CREATININE 0.8 mg/dL (0.55-1.02); GLUCOSE,RANDOM 213 mg/dL (74-106)
--- NOTE | 2017-08-22 13:21 | MSN ---
Progress Note (SOAP) - Subjective History of Present Illness: Patient was examined awake and supine in no acute distress. Patient did not sleep well last night as her oropharynx and sinuses were irritated by the smell of a cleaning product used in her room. She continues to have a nonproductive cough. Had a BM yesterday that was normal for her without any blood. Denies any urinary sx's. Denies any fevers, chills, night sweats, nausea, vomiting, chest pain, SOB. No acute events since admission as per nursing. - Current Medications Current Medications: Active Medications Albuterol Sulfate (Ventolin 0.083% Nebulizer Soln -) 1 amp NEB Q6H PRN PRN Reason: SHORT OF BREATH/WHEEZING Atorvastatin Calcium (Lipitor -) 10 mg PO HS [facility] Last Admin: 08/21/17 22:58 Dose: 10 mg Furosemide (Lasix Injection -) 40 mg IVPUSH DAILY [facility] Last Admin: 08/22/17 10:18 Dose: 40 mg Guaifenesin (Diabetic Tussin Dm -) 5 ml PO Q4H PRN PRN Reason: COUGH Heparin Sodium (Porcine) (Heparin -) 1,000 unit IVPUSH PRN PRN PRN Reason: Heparin Last Admin: 08/20/17 21:13 Dose: 1,000 unit Heparin Sodium (Porcine) (Heparin -) 5,000 unit IVPUSH PRN PRN PRN Reason: Heparin HEPARIN SOD,PORK IN 0.45% NACL (Heparin-1/2ns 25,000 Units/500) 25,000 units in 500 mls @ 20 mls/hr IVPB TITR [place]; 1,000 UNITS/HR PRN Reason: Protocol Last Admin: 08/22/17 06:04 Dose: Not Given Insulin Aspart (Novolog Vial Sliding Scale -) 1 vial SQ ACHS [facility] PRN Reason: Protocol Last Admin: 08/22/17 11:57 Dose: 2 unit Insulin Detemir (Levemir Vial) 10 units SQ AM [facility] Last Admin: 08/22/17 06:04 Dose: 10 unit Lisinopril (Prinivil) 5 mg PO DAILY [facility] Last Admin: 08/22/17 10:18 Dose: 5 mg Metoprolol Succinate (Toprol Xl -) 100 mg PO BID [facility] Warfarin Sodium (Coumadin -) 5 mg PO DAILY@1800 [facility] Last Admin: 08/21/17 17:14 Dose: 5 mg - Objective Vital Signs: Vital Signs Temperature 97.6 F 08/22/17 10:00 Pulse Rate 97 H 08/22/17 10:00 Respiratory Rate 20 08/22/17 10:00 Blood Pressure 145/63 08/22/17 10:00 O2 Sat by Pulse Oximetry (%) 96 08/22/17 09:00 Constitutional: Yes: No Distress, Calm Eyes: Yes: EOM Intact, PERRL Neck: Yes: Supple Cardiovascular: Yes: Regular Rate and Rhythm, JVD (Mild), S1, S2 Respiratory: Yes: Cough (Nonproductive), Rales (at the lung bases; CTA in other lobes) Gastrointestinal: Yes: Normal Bowel Sounds, Soft, Abdomen, Obese. No: Distention, Tenderness, Tenderness, Rebound, Vomiting Musculoskeletal: Yes: Other (Decreased Right Shoulder ROM from a previous accident) Peripheral Pulses: Left Radial: 2+, Right Radial: 2+, Left Doralis Pedis: 1+, Right Dorsalis Pedis: 1+ Edema: LUE: 2+, RUE: 2+ Neurological: Yes: Alert, Oriented, Cran Nerves II-XII Intact. No: Loss of Sensation (C5-T1 and L4-S1 sensation intact grossly), Numbness, Paresthesia ...Motor Strength: Yes: LUE (5/5 in Elbow Flexion and extension; Experiences pain with shoulder abduction), LLE (5/5 in Hip Flexion, Knee Flexion and Knee extension), RUE (5/5 in Elbow Flexion and extension; Experiences pain with shoulder abduction), RLE (5/5 in Hip Flexion, Knee Flexion and Knee extension) Labs Lab Results: CBC, BMP 08/22/17 07:22 08/22/17 12:26 Intake & Output 08/19/17 08/20/17 08/21/17 08/22/17 23:59 23:59 23:59 23:59 Intake Total 629 058 0882 161 Output Total 2650 Balance -3710 150 2358 161 Weight 286 lb 9.615 oz 318 lb 6 oz 317 lb 313 lb 2 oz Problem List - Problems (1) Afib Code(s): I48.91 - UNSPECIFIED ATRIAL FIBRILLATION Qualifiers: Atrial fibrillation type: unspecified Qualified Code(s): I48.91 - Unspecified atrial fibrillation (2) SOB (shortness of breath) Code(s): R06.02 - SHORTNESS OF BREATH Assessment/Plan 56 y/o female with no known PMHx who presented with SOB was found to have CHF due to Atrial Flutter and was admitted to the ICU. 1. New Onset CHF likely due to Atrial Flutter with RVR - Continue IV Lasix 40mg BID; will consider decreasing dose tomorrow - Increase Metoprolol Succinate to 150 mg PO Daily as HR has not been controlled on 100mg PO Daily. - Increase Coumadin to 7.5 PO Daily as INR remains Subtherapeutic (1.19 today) - Continue Heparin gtt in bridging to Coumadin - Continue Lisinopril 5mg PO Daily - Cardio Consult: Appreciate Rec's 2. Type 2 DM - Recent A1c: 12.5%; BG this morning was 134 - Continue current regimen of Insulin Detemir 10 units SUBQ in AM and ISS - Will increase Detemir dose if BG continues to be elevated in the evenings 3. HTN - Increase Metoprolol Succinate to 150 mg PO Daily - Continue Lisinopril 5mg PO Daily 4. Hyperlipidemia - Continue Lipitor 10mg PO HS [facility] 5. DVT PPx - Heparin Drip Dispo: Continue to monitor on Telemetry
--- NOTE | 2017-08-22 16:09 | PN ---
Teaching Attending Note Name of Resident: Roni Roy ATTENDING PHYSICIAN STATEMENT I saw and evaluated the patient. I reviewed the resident's note and discussed the case with the resident. I agree with the resident's findings and plan as documented. SUBJECTIVE: No fever or chills. has no abd pain. no cp , no vents over night OBJECTIVE: NAD, AAox3 HEENT: MMM, No facial droop, CV; irreg rhythm. NO MRG. JVD + Lungs : minimal L basal crackles. Ext: 1+ pitting edema. 1+ DP pulses. ASSESSMENT AND PLAN: 56 y/o lady with no recent medical care , and no known PMH who presented with SOB , and was found tohave A flutter with RVR and resultant CHF 1- A flutter with RVR, ont ed and exam it is A fib today . rate is still uncontrolled - toprol increased to 100 BID - give 7.5 mg of coumadin tonight - Appreciate Card help. - Mobile structure on AV , is unlikely vegetation. follow blood cx 2- New onset systolic CHF. volume status has imporved but she is still volume overloaded. weight cont to decrease - cont lasix 40 IV daily - cont low dose lisinopril - Nuclear stress test later this admission and need to re-eval valvular structure again 3- New diagnosis of DMII: A1c 12 - cont levemir and SSI 4- HTN: - Lisinopril - toprol 5- Hyperlipidemia: - low dose lipitor Dispo: Cont to be HLOC
[2017-08-22] MEDS ORDERED: PT OWN MED DRAWER 7, Y5N ONE ×2 (16:40→22:07)
[2017-08-22] MEDS: WARFARIN NA 7.5 MG TABLET (FP) PO SCH (17:18)
--- NOTE | 2017-08-22 19:12 | PN ---
Physical Exam: SUBJECTIVE: Patient seen and examined. No acute events overnight. Pt reports decreased sleep and intermittent cough productive of clear sputum. She denies SOB, chest pain, abdominal pain, n/v/d/c , and dysuria. OBJECTIVE: Vital Signs Period Temp Pulse Resp BP Sys/Soriano Pulse Ox Last 24 Hr 97.6 F-98.3 F 72-125 18-20 127-146/63-91 93-96 GENERAL: middle aged female, obese, awake, AAOx3 in NAD HEENT: NC, AT, EOMI Neck: + JVD LUNGS: b/l rales HEART: irregularly irregular rhythm, no murmurs ABDOMEN: soft, nontender, nondistended, normoactive bowel sounds, no guarding, no rebound, no hepatosplenomegaly, no masses. EXTREMITIES: 2+ LE edema NEUROLOGICAL: Cranial nerves II through XII grossly intact. Normal speech, gait not observed. Laboratory Results - last 24 hr 08/19/17 08/21/17 08/22/17 22:31 22:55 06:00 WBC RBC Hgb Hct MCV MCH MCHC RDW Plt Count MPV PT with INR INR PTT (Actin FS) Sodium Potassium Chloride Carbon Dioxide Anion Gap BUN Creatinine POC Glucometer 152.61047 227 134 Random Glucose Calcium 08/22/17 08/22/17 08/22/17 07:22 07:22 07:22 WBC 3.9 L RBC 4.64 Hgb 13.3 Hct 41.3 MCV 89.1 MCH 28.7 MCHC 32.2 RDW 13.9 Plt Count 186 MPV 11.0 PT with INR 13.40 H INR 1.19 H PTT (Actin FS) 58.9 H Sodium Potassium Chloride Carbon Dioxide Anion Gap BUN Creatinine POC Glucometer Random Glucose Calcium 08/22/17 08/22/17 08/22/17 11:55 12:26 17:14 WBC RBC Hgb Hct MCV MCH MCHC RDW Plt Count MPV PT with INR INR PTT (Actin FS) Sodium 139 Potassium 3.9 Chloride 101 Carbon Dioxide 33 H Anion Gap 5 L BUN 11 Creatinine 0.8 POC Glucometer 188 187 Random Glucose 213 H D Calcium 8.5 Active Medications Generic Name Dose Route Start Last Admin Trade Name Freq PRN Reason Stop Dose Admin Albuterol Sulfate 1 amp 08/19/17 16:39 Ventolin 0.083% Nebulizer Soln - NEB Q6H PRN SHORT OF BREATH/WHEEZING Atorvastatin Calcium 10 mg 08/20/17 22:00 08/21/17 22:58 Lipitor - PO 10 mg HS [facility] Administration Furosemide 40 mg 08/20/17 10:00 08/22/17 10:18 Lasix Injection - IVPUSH 40 mg DAILY [facility] Administration Guaifenesin 5 ml 08/19/17 23:32 08/22/17 18:51 Diabetic Tussin Dm - PO 5 ml Q4H PRN Administration COUGH Heparin Sodium (Porcine) 1,000 unit 08/19/17 23:32 08/20/17 21:13 Heparin - IVPUSH 1,000 unit PRN PRN Administration Heparin Heparin Sodium (Porcine) 5,000 unit 08/19/17 23:32 Heparin - IVPUSH PRN PRN Heparin HEPARIN SOD,PORK IN 0.45% NACL 25,000 units in 500 mls @ 20 mls/hr 08/19/17 23 :32 08/22/17 18:52 Heparin-1/2ns 25,000 Units/500 IVPB 1,150 units/hr TITR [facility] 23 mls/hr Protocol Administration 1,000 UNITS/HR Insulin Aspart 1 vial 08/20/17 07:00 08/22/17 17:17 Novolog Vial Sliding Scale - SQ 2 unit ACHS [facility] Administration Protocol Insulin Detemir 10 units 08/20/17 07:00 08/22/17 06:04 Levemir Vial SQ 10 unit AM [facility] Administration Lisinopril 5 mg 08/20/17 10:00 08/22/17 10:18 Prinivil PO 5 mg DAILY [facility] Administration Metoprolol Succinate 100 mg 08/22/17 22:00 Toprol Xl - PO BID [facility] Warfarin Sodium 7.5 mg 08/22/17 15:26 08/22/17 17:18 Coumadin - PO 7.5 mg DAILY@1800 [facility] Administration ASSESSMENT/PLAN: 56F w/ no significant PMH who presented with SOB, and was found to have A- flutter with RVR and resultant CHF. #A-flutter with RVR - A-fib today, rate still uncontrolled - toprol increased to 100 BID - coumadin increased to 7.5mg - cards recs appreciated. YENNIFER and cardioversion too high risk for pt now, might consider later on to check MR - Mobile structure on AV is unlikely vegetation. will follow Bcx #New onset systolic CHF - volume status has improved but she is still volume overloaded - weight cont to decrease - cont lasix 40 IV daily - cont low dose lisinopril - f/u pharm MPI to rule out high risk ischemia #New diagnosis of DMII - A1c of 12 - cont levemir and SSI - BGM #HTN - continue Lisinopril - continue toprol #Hyperlipidemia - continue low dose lipitor - ventolin PRN #cough - continue guaifenesin #FEN/ppx -no fluids -no electrolyte labs today -chol/fat/sodium restricted diet -no GI ppx -heparin to coumadin bridge -Roni Roy MD PGY1 Visit type - Emergency Visit Emergency Visit: Yes ED Registration Date: 08/18/17 Care time: The patient presented to the Emergency Department on the above date and was hospitalized for further evaluation of their emergent condition. - New Patient This patient is new to me today: Yes Date on this admission: 08/22/17 - Critical Care Critical Care patient: No
[2017-08-22] MEDS: ATORVASTATIN CA 10 MG TABLET (FP) PO SCH (22:15)
[2017-08-23] MEDS ORDERED: INSULIN DETEMIR 100 UNITS/ML MDV SQ ONE (07:06)
[2017-08-23] MEDS ORDERED: INSULIN (NOVOLOG) ASPART 100 UNITS/ML 10ML VIAL ONE (07:06)
[2017-08-23 07:57] LABS: MCH 28.6 pg (25.7-33.7); MCHC 32.2 g/dl (32.0-36.0); MEAN CELL VOLUME 88.7 fl (80-96); MEAN PLT VOLUME 11.4 fl (7.5-11.1); PLATELET COUNT 188 K/MM3 (134-434); RDW 13.8 % (11.6-15.6)
[2017-08-23] MEDS: INSULIN DETEMIR 100 UNITS/ML MDV SQ SCH (08:04)
[2017-08-23] MEDS: INSULIN SLIDING SCALE (NOVOLOG) 1 VIAL SQ SCH ×4 (08:04→21:04)
[2017-08-23 08:15] LABS: ANION GAP 12 (8-16); CALCIUM 8.7 mg/dL (8.5-10.1); CO2 28 mmol/L (21-32); GLUCOSE,RANDOM 152 mg/dL (74-106)
[2017-08-23 08:16] LABS: CREATININE 0.7 mg/dL (0.55-1.02)
[2017-08-23 08:17] LABS: INR 1.35 (0.82-1.09); PROTHROMBIN TIME (PATIENT) 15.3 SEC (9.98-11.88)
[2017-08-23] MEDS ORDERED: REGADENOSON 0.4 MG/5 ML PRE-FILLED SYRINGE IVPUSH ONE ×2 (11:45→13:29)
--- NOTE | 2017-08-23 12:35 | PN ---
Progress Note (short form) - Note Progress Note: Chief Complaint: cough History of Present Illness: cough improved. LE edema improving but still remains. ambulating with less sx' s today. had stress test today. no cp, palps, dizziness, sob. Current Medications Albuterol Sulfate (Ventolin 0.083% Nebulizer Soln -) 1 amp NEB Q6H PRN PRN Reason: SHORT OF BREATH/WHEEZING Atorvastatin Calcium (Lipitor -) 10 mg PO HS [facility] Last Admin: 08/22/17 22:15 Dose: 10 mg Furosemide (Lasix Injection -) 40 mg IVPUSH DAILY [facility] Last Admin: 08/22/17 10:18 Dose: 40 mg Guaifenesin (Diabetic Tussin Dm -) 5 ml PO Q4H PRN PRN Reason: COUGH Last Admin: 08/22/17 18:51 Dose: 5 ml Heparin Sodium (Porcine) (Heparin -) 1,000 unit IVPUSH PRN PRN PRN Reason: Heparin Last Admin: 08/20/17 21:13 Dose: 1,000 unit Heparin Sodium (Porcine) (Heparin -) 5,000 unit IVPUSH PRN PRN PRN Reason: Heparin HEPARIN SOD,PORK IN 0.45% NACL (Heparin-1/2ns 25,000 Units/500) 25,000 units in 500 mls @ 20 mls/hr IVPB TITR [facility]; 1,000 UNITS/HR PRN Reason: Protocol Last Admin: 08/22/17 23:15 Dose: Not Given Insulin Aspart (Novolog Vial Sliding Scale -) 1 vial SQ ACHS [facility] PRN Reason: Protocol Last Admin: 08/23/17 08:04 Dose: Not Given Insulin Detemir (Levemir Vial) 10 units SQ AM [facility] Last Admin: 08/23/17 08:04 Dose: Not Given Lisinopril (Prinivil) 5 mg PO DAILY [facility] Last Admin: 08/22/17 10:18 Dose: 5 mg Metoprolol Succinate (Toprol Xl -) 100 mg PO BID [facility] Last Admin: 08/22/17 22:15 Dose: 100 mg Warfarin Sodium (Coumadin -) 7.5 mg PO DAILY@1800 [facility] Last Admin: 08/22/17 17:18 Dose: 7.5 mg - Objective Vital Signs: Vital Signs - 24 hr 08/22/17 08/22/17 08/22/17 15:18 17:15 18:48 Temperature 97.8 F 97.7 F Pulse Rate 98 H 125 H 95 H Respiratory 18 18 Rate Blood Pressure 135/76 143/74 O2 Sat by Pulse 93 L Oximetry (%) 08/22/17 08/22/17 08/23/17 21:00 22:18 02:00 Temperature 97.9 F 97.6 F Pulse Rate 113 H 82 Respiratory 16 16 16 Rate Blood Pressure 144/85 124/69 O2 Sat by Pulse 93 L Oximetry (%) 08/23/17 08/23/17 08/23/17 06:00 09:00 10:00 Temperature 97.8 F 97.8 F Pulse Rate 71 96 H Respiratory 16 18 18 Rate Blood Pressure 136/85 119/51 O2 Sat by Pulse 98 Oximetry (%) Intake & Output 08/21/17 08/22/17 08/23/17 08/24/17 07:59 07:59 07:59 07:59 Intake Total 1144 676 676 Balance 1144 676 676 Weight 317 lb 313 lb 2 oz 310 lb 8 oz Constitutional: Yes: No Distress, Calm, Obese Eyes: No: Sclera Icterus HENT: No: Nasal Congestion Cardiovascular: Yes: Pulse Irregular, JVD, S1, S2, Other (PMI non diplaced). No : Gallop, Murmur Respiratory: Yes: CTA Bilaterally. No: Accessory Muscle Use, Rales, Wheezes Gastrointestinal: Yes: Normal Bowel Sounds, Soft. No: Tenderness Musculoskeletal: Yes: Other (No kyphosis) Extremities: No: Cold, Cyanosis Edema: trace - 1+ to pannus Integumentary: No: Jaundice Neurological: Yes: Alert, Oriented (x3) Psychiatric: No: Agitated Labs: CBC, BMP 08/23/17 06:00 08/23/17 06:00 Laboratory Tests 08/23/17 08/23/17 06:00 06:00 INR 1.35 H PTT (Actin FS) 70.0 H - ....Imaging EKG: Other (tele: AFL, overall rate controlled) Assessment/Plan stress test 08/2017: no sx's. no ekg changes. cannot r/o moderate area of mildly intense inf wall ischemia although there may be some element of diaphragmatic attenuation artifact. small area of mild anteroseptal ischemia. mild-mod LVE. EF 40% with mild hk of inf wall. Echo 08/21: mild LVE, severely decr LVEF (global). mild LAE. ecc MR, at least moderate (may be underestimated). 0.7cm mobile density on LV side of AV may represent small strand or fibroelastoma, veg cannot be excluded. + pleural effusion a/p: 56 f no known pmhx (does not follow with doctor) here with sob, cough, wheezing. new aflutter: -metoprolol started here, dose last uptitrated to 100 bid on 08/22 for rapid HRs. Tolerating - no asthmatic sx's. HR's improved today, ambulation only causing increase in HR to the 110's rather than > 120 previously. Con't current dose. -? underlying tachy-CMP here--aggressive HR control efforts. monitor tele for HR control while pt ambulates -chadsvasc is 4, cont hep gtt and warfarin. -cont tele -can eventually consider YENNIFER/DCCV, however pt would be at hi risk for embolic event if she does not comply with 4 weeks of AC post...given her prior lack of MD f/u and currently no medical insurance/rx drug coverage, she is high risk for AC med non-adherence. Hence, will cont rate control strategy for now, and defer DCCV if HR can be otherwise controlled, until she follows up in office and shows compliance with meds new acute chf: -echo with severe, global LV dysfunction, at least moderate MR (eccentric). BNP 1400 -possible tachy-CMP, vs hypertensive (bp high here, no f/u in long time), vs ? obesity/DIONICIO related, less likely sec to primary MR -should have reassessment of MR severity with YENNIFER once better diuresed and adequately HR controlled as outpt, to rule out primary severe MR causing LV dysfunction (in which case MV surgery may be indicated) -no isch ecg, ce's neg x2, no angina sx suspected. defer cath. sent for nuclear stress test today. -pt advised of importance of cardio f/u, and told to contact our office or, if insurance/finances are an issue, she was given name of [facility] cardiology clinic to contact -cont metopr (also for AFib hr control), AMARILIS as doing -08/22-08/23: wt declining, JVD persists, observe for sob with ambulation today. 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 htn: -new diagnosis here -bp better controlled with b-b and AMARILIS regimen for LV dysfunction
[2017-08-23] MEDS ORDERED: PT OWN MED DRAWER 7, Y5N ONE (14:58)
[2017-08-23] MEDS: METOPROLOL SUCCINATE 100 MG TAB.SR.24H (FP) PO SCH ×2 (15:20→21:04)
[2017-08-23] MEDS: LISINOPRIL 5 MG TABLET (FP) PO SCH (15:20)
--- NOTE | 2017-08-23 16:04 | PN ---
Physical Exam: SUBJECTIVE: Patient seen and examined. No acute events overnight. Pt reports that her breathing has improved and her lower extremity edema has diminished. She denies all other complaints. OBJECTIVE: Vital Signs Period Temp Pulse Resp BP Sys/Soriano Pulse Ox Last 24 Hr 97.6 F-97.9 F 71-125 16-18 119-144/51-85 93-98 GENERAL: middle aged female, obese, awake, AAOx3 in NAD HEENT: NC, AT, EOMI Neck: no JVD LUNGS: CTAB HEART: irregularly irregular rhythm, no murmurs ABDOMEN: obese, soft, nontender, nondistended, normoactive bowel sounds, no guarding, no rebound, no hepatosplenomegaly, no masses. EXTREMITIES: 2+ LE edema, slightly improved from yesterday NEUROLOGICAL: AAOx3 Laboratory Results - last 24 hr 08/22/17 08/22/17 08/23/17 17:14 21:01 05:59 WBC RBC Hgb Hct MCV MCH MCHC RDW Plt Count MPV PT with INR INR PTT (Actin FS) Sodium Potassium Chloride Carbon Dioxide Anion Gap BUN Creatinine POC Glucometer 187 188 152 Random Glucose Calcium 08/23/17 08/23/17 08/23/17 06:00 06:00 06:00 WBC 4.0 RBC 4.47 Hgb 12.8 Hct 39.6 MCV 88.7 MCH 28.6 MCHC 32.2 RDW 13.8 Plt Count 188 MPV 11.4 H PT with INR 15.30 H INR 1.35 H PTT (Actin FS) 70.0 H Sodium Potassium Chloride Carbon Dioxide Anion Gap BUN Creatinine POC Glucometer Random Glucose Calcium 08/23/17 06:00 WBC RBC Hgb Hct MCV MCH MCHC RDW Plt Count MPV PT with INR INR PTT (Actin FS) Sodium 141 Potassium 3.9 Chloride 101 Carbon Dioxide 28 Anion Gap 12 BUN 11 Creatinine 0.7 POC Glucometer Random Glucose 152 H D Calcium 8.7 Active Medications Generic Name Dose Route Start Last Admin Trade Name Freq PRN Reason Stop Dose Admin Albuterol Sulfate 1 amp 08/19/17 16:39 Ventolin 0.083% Nebulizer Soln - NEB Q6H PRN SHORT OF BREATH/WHEEZING Atorvastatin Calcium 10 mg 08/20/17 22:00 08/22/17 22:15 Lipitor - PO 10 mg HS [facility] Administration Guaifenesin 5 ml 08/19/17 23:32 08/22/17 18:51 Diabetic Tussin Dm - PO 5 ml Q4H PRN Administration COUGH Heparin Sodium (Porcine) 1,000 unit 08/19/17 23:32 08/20/17 21:13 Heparin - IVPUSH 1,000 unit PRN PRN Administration Heparin Heparin Sodium (Porcine) 5,000 unit 08/19/17 23:32 Heparin - IVPUSH PRN PRN Heparin HEPARIN SOD,PORK IN 0.45% NACL 25,000 units in 500 mls @ 20 mls/hr 08/19/17 23 :32 08/22/17 23:15 Heparin-1/2ns 25,000 Units/500 IVPB Not Given TITR [facility] Protocol 1,000 UNITS/HR Insulin Aspart 1 vial 08/20/17 07:00 08/23/17 11:00 Novolog Vial Sliding Scale - SQ Not Given ACHS [facility] Protocol Insulin Detemir 10 units 08/20/17 07:00 08/23/17 08:04 Levemir Vial SQ Not Given AM [facility] Lisinopril 5 mg 08/20/17 10:00 08/23/17 15:20 Prinivil PO 5 mg DAILY [facility] Administration Metoprolol Succinate 100 mg 08/22/17 22:00 08/23/17 15:20 Toprol Xl - PO 100 mg BID [facility] Administration Prednisone 40 mg 08/24/17 10:00 Deltasone - PO DAILY [facility] Warfarin Sodium 7.5 mg 08/22/17 15:26 08/22/17 17:18 Coumadin - PO 7.5 mg DAILY@1800 [facility] Administration ASSESSMENT/PLAN: 56F w/ no significant PMH who presented with SOB, and was found to have A- flutter with RVR and resultant CHF. #A-flutter with RVR - HR between 70-125 - continue toprol 100 BID and reassess [place] - INR 1.35 up from 1.19. continue coumadin 7.5mg - cards recs appreciated. YENNIFER and cardioversion too high risk for pt now, might consider later on to check MR - Mobile structure on AV is unlikely vegetation. Will follow Bcx, currently showing no growth x 24 hours #New onset systolic CHF - volume status has improved. No more rales, and she denies SOB - weight decreased 1.5 kg - IV lasix changed to po lasix 40mg - cont low dose lisinopril - f/u pharm MPI to rule out high risk ischemia #New diagnosis of DMII - A1c of 12 - cont levemir and SSI - BGM #HTN - continue Lisinopril - continue toprol #Hyperlipidemia - continue low dose lipitor - ventolin PRN #cough - continue guaifenesin #FEN/ppx -no fluids -electrolytes wnl -chol/fat/sodium restricted diet -no GI ppx -heparin to coumadin bridge -Roni Roy MD PGY1 Visit type - Emergency Visit Emergency Visit: Yes ED Registration Date: 08/18/17 Care time: The patient presented to the Emergency Department on the above date and was hospitalized for further evaluation of their emergent condition. - New Patient This patient is new to me today: No - Critical Care Critical Care patient: No
[2017-08-23] MEDS: FUROSEMIDE 40 MG/4 ML INJECTABLE VIAL IVPUSH SCH (16:48)
[2017-08-23] MEDS ORDERED: guaiFENesin/D-M SUGAR-FREE/ACLHOL-FREE 118 ML BOTTLE PO PRN (16:50)
--- NOTE | 2017-08-23 17:52 | MSN ---
Progress Note (SOAP) - Subjective History of Present Illness: Patient was examined awake and supine in no acute distress. Patient continues to complain of nonproductive Cough overnight that does not resolve with Guaifenesin. Had a single, nonbloody Loose BM over night. Denies any urinary sx' s. Denies any fevers, chills, night sweats, nausea, vomiting, chest pain, SOB. No acute events since admission as per nursing. - Current Medications Current Medications: Active Medications Albuterol Sulfate (Ventolin 0.083% Nebulizer Soln -) 1 amp NEB Q6H PRN PRN Reason: SHORT OF BREATH/WHEEZING Atorvastatin Calcium (Lipitor -) 10 mg PO HS [facility] Last Admin: 08/22/17 22:15 Dose: 10 mg Guaifenesin (Diabetic Tussin Dm -) 5 ml PO Q6H PRN PRN Reason: COUGH Heparin Sodium (Porcine) (Heparin -) 1,000 unit IVPUSH PRN PRN PRN Reason: Heparin Last Admin: 08/20/17 21:13 Dose: 1,000 unit Heparin Sodium (Porcine) (Heparin -) 5,000 unit IVPUSH PRN PRN PRN Reason: Heparin HEPARIN SOD,PORK IN 0.45% NACL (Heparin-1/2ns 25,000 Units/500) 25,000 units in 500 mls @ 20 mls/hr IVPB TITR [facility]; 1,000 UNITS/HR PRN Reason: Protocol Last Admin: 08/22/17 23:15 Dose: Not Given Insulin Aspart (Novolog Vial Sliding Scale -) 1 vial SQ ACHS [facility] PRN Reason: Protocol Last Admin: 08/23/17 16:53 Dose: 4 unit Insulin Detemir (Levemir Vial) 10 units SQ AM [facility] Last Admin: 08/23/17 08:04 Dose: Not Given Lisinopril (Prinivil) 5 mg PO DAILY [facility] Last Admin: 08/23/17 15:20 Dose: 5 mg Metoprolol Succinate (Toprol Xl -) 100 mg PO BID [facility] Last Admin: 08/23/17 15:20 Dose: 100 mg Prednisone (Deltasone -) 40 mg PO DAILY [facility] Warfarin Sodium (Coumadin -) 7.5 mg PO DAILY@1800 [facility] Last Admin: 08/22/17 17:18 Dose: 7.5 mg - Objective Vital Signs: Vital Signs Temperature 97.8 F 08/23/17 10:00 Pulse Rate 96 H 08/23/17 10:00 Respiratory Rate 18 08/23/17 10:00 Blood Pressure 119/51 08/23/17 10:00 O2 Sat by Pulse Oximetry (%) 98 08/23/17 09:00 Constitutional: Yes: No Distress, Obese Cardiovascular: Yes: Regular Rate and Rhythm, S1, S2. No: JVD Respiratory: Yes: CTA Bilaterally Gastrointestinal: Yes: Normal Bowel Sounds, Soft, Abdomen, Obese. No: Distention, Tenderness Peripheral Pulses: Left Radial: 2+, Right Radial: 2+, Left Doralis Pedis: 1+, Right Dorsalis Pedis: 1+ Edema: LLE: 2+, RLE: 2+ Neurological: Yes: Alert, Oriented, Cran Nerves II-XII Intact Labs Lab Results: CBC, BMP 08/23/17 06:00 08/23/17 06:00 Problem List - Problems (1) Afib Code(s): I48.91 - UNSPECIFIED ATRIAL FIBRILLATION Qualifiers: Atrial fibrillation type: unspecified Qualified Code(s): I48.91 - Unspecified atrial fibrillation (2) SOB (shortness of breath) Code(s): R06.02 - SHORTNESS OF BREATH Assessment/Plan 56 y/o female with no known PMHx who presented with SOB was found to have CHF due to Atrial Flutter and was admitted to the ICU. 1. New Onset CHF likely due to Atrial Flutter with RVR - Transition from IV to PO Lasix 40mg BID - Continue Metoprolol Succinate 150 mg PO Daily; HR still is not well controlled , will reassess tomorrow - Continue Coumadin 7.5 PO Daily; INR remains Subtherapeutic at 1.35 - Continue Heparin gtt in bridging to Coumadin - Continue Lisinopril 5mg PO Daily - Cardio Consult: Appreciate Rec's - Myocardial Perfusion scan results: No evidence of induced myocardial ischemia on EKG imaging, Cannot rule out a moderate area of mildly intense inferior wall cardial ischemia, Gated studies showed mild to moderately dilated LV and Reduced LVEF of 40% with mild hypokinesis of the inferior wall. 2. 1 Episode of Runny Diarrhea - NonBloody loose stool x1 over last night, has not reoccurred since - Will check for C. Difficile if this continues tonight 3. Cough - Complains of cough over night and Guaifenesin has not helped - Guaifenesin/D-Methorphan 5mL PO Q6Hr PRN 4. Type 2 DM - Recent A1c: 12.5%; BG this morning was 152 - Continue Insulin Detemir 10 units SUBQ in AM and ISS - Will increase Detemir dose if BG continues to be elevated in the evenings 5. HTN - Continue Metoprolol Succinate 150 mg PO Daily - Continue Lisinopril 5mg PO Daily 6. Hyperlipidemia - Continue Lipitor 10mg PO HS [facility] 7. DVT PPx - Heparin Drip Dispo: Continue to monitor on Telemetry
[2017-08-23] MEDS: HEPARIN SOD,PORK IN 0.45% NACL 25,000 UNITS/500 ML INFUS.BAG IVPB SCH (17:59)
[2017-08-23] MEDS: WARFARIN NA 7.5 MG TABLET (FP) PO SCH (17:59)
--- NOTE | 2017-08-23 18:29 | PN ---
Teaching Attending Note Name of Resident: Roni Roy ATTENDING PHYSICIAN STATEMENT I saw and evaluated the patient. I reviewed the resident's note and discussed the case with the resident. I agree with the resident's findings and plan as documented. SUBJECTIVE: No fever or chills, no SOB . cont with cough OBJECTIVE: NAD, AAox3 HEENT: MMM, No facial droop, CV; irreg rhythm. NO MRG. Lungs : minimal L basal crackles. Ext: 1+ pitting edema. 1+ DP pulses. ASSESSMENT AND PLAN: 56 y/o lady with no recent medical care , and no known PMH who presented with SOB , and was found tohave A flutter with RVR and resultant CHF 1- A flutter with RVR, ont ed and exam it is A fib today . - cont toprol 100 BID - give 7.5 mg of coumadin tonight - Appreciate Card help. - Mobile structure on AV , is unlikely vegetation. follow blood cx 2- New onset systolic CHF. volume status has improved but she is still volume overloaded. weight cont to decrease - cont lasix 40 IV daily per card recs - cont low dose lisinopril - Nuclear stress test with ischemia . decision about cath per card 3- New diagnosis of DMII: A1c 12 - cont levemir and SSI 4- HTN: - Lisinopril - toprol 5- Hyperlipidemia: - low dose lipitor Dispo: Cont to be HLOC
[2017-08-23] MEDS: ATORVASTATIN CA 10 MG TABLET (FP) PO SCH (21:04)
[2017-08-24] MEDS: INSULIN DETEMIR 100 UNITS/ML MDV SQ SCH (06:02)
[2017-08-24] MEDS: HEPARIN SOD,PORK IN 0.45% NACL 25,000 UNITS/500 ML INFUS.BAG IVPB SCH ×3 (06:02→15:37)
[2017-08-24] MEDS: INSULIN SLIDING SCALE (NOVOLOG) 1 VIAL SQ SCH ×4 (06:02→21:32)
--- NOTE | 2017-08-24 08:16 | MSN ---
Progress Note (SOAP) - Subjective History of Present Illness: Patient was examined awake, sitting upright in no acute distress. She says she slept well with minimal coughing overnight. Feels much of her strength has returned. No BM over night. Denies any urinary sx's. Denies any fevers, chills, nausea, vomiting, chest pain, SOB, headache. No acute events over last night as per nursing. - Current Medications Current Medications: Active Medications Albuterol Sulfate (Ventolin 0.083% Nebulizer Soln -) 1 amp NEB Q6H PRN PRN Reason: SHORT OF BREATH/WHEEZING Atorvastatin Calcium (Lipitor -) 10 mg PO HS [facility] Last Admin: 08/23/17 21:04 Dose: 10 mg Furosemide (Lasix Injection -) 40 mg IVPUSH DAILY [facility] Guaifenesin (Diabetic Tussin Dm -) 5 ml PO Q6H PRN PRN Reason: COUGH Heparin Sodium (Porcine) (Heparin -) 1,000 unit IVPUSH PRN PRN PRN Reason: Heparin Last Admin: 08/20/17 21:13 Dose: 1,000 unit Heparin Sodium (Porcine) (Heparin -) 5,000 unit IVPUSH PRN PRN PRN Reason: Heparin HEPARIN SOD,PORK IN 0.45% NACL (Heparin-1/2ns 25,000 Units/500) 25,000 units in 500 mls @ 20 mls/hr IVPB TITR [facility]; 1,000 UNITS/HR PRN Reason: Protocol Last Admin: 08/24/17 06:02 Dose: 1,150 units/hr, 23 mls/hr Insulin Aspart (Novolog Vial Sliding Scale -) 1 vial SQ ACHS [facility] PRN Reason: Protocol Last Admin: 08/24/17 06:02 Dose: Not Given Insulin Detemir (Levemir Vial) 10 units SQ AM [facility] Last Admin: 08/24/17 06:02 Dose: 10 unit Lisinopril (Prinivil) 5 mg PO DAILY [facility] Last Admin: 08/23/17 15:20 Dose: 5 mg Metoprolol Succinate (Toprol Xl -) 100 mg PO BID [facility] Last Admin: 08/23/17 21:04 Dose: 100 mg Warfarin Sodium (Coumadin -) 7.5 mg PO DAILY@1800 [facility] Last Admin: 08/23/17 17:59 Dose: 7.5 mg - Objective Vital Signs: Vital Signs Temperature 97.7 F 08/24/17 07:00 Pulse Rate 61 08/24/17 07:00 Respiratory Rate 18 08/24/17 07:00 Blood Pressure 139/84 08/24/17 07:00 O2 Sat by Pulse Oximetry (%) 98 08/23/17 22:00 Constitutional: Yes: No Distress, Calm Eyes: Yes: EOM Intact, PERRL HENT: Yes: Other (Dry Oral mucosa) Cardiovascular: Yes: Regular Rate and Rhythm, S1, S2 Respiratory: Yes: CTA Bilaterally (Did not appreciate any bibasilar Crackles). No: Cough Gastrointestinal: Yes: Normal Bowel Sounds, Soft, Abdomen, Obese. No: Distention, Tenderness, Vomiting Peripheral Pulses: Left Radial: 2+, Right Radial: 2+, Left Doralis Pedis: 0, Right Dorsalis Pedis: 0 Edema: LLE: 2+ (Pitting), RLE: 2+ (Pitting) Neurological: Yes: Alert, Oriented, Cran Nerves II-XII Intact. No: Loss of Sensation (C5-T1 and L4-S1 intact grossly), Numbness Labs Lab Results: CBC, BMP 08/24/17 05:35 Laboratory Results - last 24 hr 08/24/17 08/24/17 08/24/17 05:35 05:35 05:35 WBC Corrected WBC (auto) RBC Hgb Hct MCV MCH MCHC RDW Plt Count MPV Neutrophils % Lymphocytes % Monocytes % Eosinophils % Basophils % Manual Slide Review Platelet Comment PT with INR INR PTT (Actin FS) 81.4 H Sodium 141 Potassium 4.1 Chloride 102 Carbon Dioxide 31 Anion Gap 8 BUN 12 Creatinine 0.8 POC Glucometer 148 Random Glucose 144 H Calcium 9.0 08/24/17 08/24/17 08/24/17 05:35 05:35 07:30 WBC 3.6 L Corrected WBC (auto) RBC 4.43 Hgb 12.7 Hct 39.9 MCV 90.0 MCH 28.7 MCHC 31.9 L RDW 14.2 Plt Count 187 MPV 11.2 H Neutrophils % 45.0 Lymphocytes % 37.2 Monocytes % 12.6 H Eosinophils % 3.9 Basophils % 1.3 Manual Slide Review Platelet Comment PT with INR 16.90 H INR 1.50 H PTT (Actin FS) Sodium Cancelled Potassium Cancelled Chloride Cancelled Carbon Dioxide Cancelled Anion Gap Cancelled BUN Cancelled Creatinine Cancelled POC Glucometer Random Glucose Cancelled Calcium Cancelled 08/24/17 12:18 WBC Corrected WBC (auto) RBC Hgb Hct MCV MCH MCHC RDW Plt Count MPV Neutrophils % Lymphocytes % Monocytes % Eosinophils % Basophils % Manual Slide Review Platelet Comment PT with INR INR PTT (Actin FS) Sodium Potassium Chloride Carbon Dioxide Anion Gap BUN Creatinine POC Glucometer 210 Random Glucose Calcium Problem List - Problems (1) Afib Code(s): I48.91 - UNSPECIFIED ATRIAL FIBRILLATION Qualifiers: Atrial fibrillation type: unspecified Qualified Code(s): I48.91 - Unspecified atrial fibrillation (2) SOB (shortness of breath) Code(s): R06.02 - SHORTNESS OF BREATH Assessment/Plan 56 y/o female with no known PMHx who presented with SOB was found to have CHF due to Atrial Flutter and was admitted to the ICU. 1. New Onset CHF likely due to Atrial Flutter with RVR - Continue PO Lasix 40mg BID - Continue Metoprolol Succinate 150 mg PO Daily; HR range over the last 24hrs from 63-111 - Continue Coumadin 7.5 PO Daily; INR remains Subtherapeutic at 1.50 - Continue Heparin gtt in bridging to Coumadin - Continue Lisinopril 5mg PO Daily 2. 1 Episode of Runny Diarrhea - NonBloody loose stool x1 two nights ago, has not reoccurred since - Will check for C. Difficile if any new episodes of diarrhea 3. Cough - Cough over night has improved - Continue Guaifenesin/D-Methorphan 5mL PO Q6Hr PRN 4. Type 2 DM - Recent A1c: 12.5%; BG this morning was 148 - Continue Insulin Detemir 10 units SUBQ in AM - ISS 5. HTN - Continue Metoprolol Succinate 150 mg PO Daily - Continue Lisinopril 5mg PO Daily 6. Hyperlipidemia - Continue Lipitor 10mg PO HS [facility] 7. DVT PPx - Heparin Drip Dispo: Continue to monitor on Telemetry, Will consider D/C once INR reaches therapeutic levels
[2017-08-24 08:23] LABS: BASO % 1.3 % (0-2.0); EOS % 3.9 % (0-4.5); MCH 28.7 pg (25.7-33.7); MCHC 31.9 g/dl (32.0-36.0); MEAN PLT VOLUME 11.2 fl (7.5-11.1); PLATELET COUNT 187 K/MM3 (134-434); RDW 14.2 % (11.6-15.6); WHITE BLOOD COUNT 3.6 K/mm3 (4.0-10.0)
[2017-08-24 08:34] LABS: INR 1.5 (0.82-1.09); PROTHROMBIN TIME (PATIENT) 16.9 SEC (9.98-11.88)
[2017-08-24 09:11] LABS: ANION GAP 8 (8-16); CO2 31 mmol/L (21-32); GLUCOSE,RANDOM 144 mg/dL (74-106)
[2017-08-24 09:13] LABS: CREATININE 0.8 mg/dL (0.55-1.02)
[2017-08-24] MEDS: FUROSEMIDE 40 MG/4 ML INJECTABLE VIAL IVPUSH SCH (09:59)
[2017-08-24] MEDS: METOPROLOL SUCCINATE 100 MG TAB.SR.24H (FP) PO SCH ×2 (09:59→21:31)
[2017-08-24] MEDS: LISINOPRIL 5 MG TABLET (FP) PO SCH (09:59)
[2017-08-24] MEDS ORDERED: predniSONE 20 MG TABLET (UD) PO SCH (10:00)
[2017-08-24] MEDS ORDERED: INSULIN (NOVOLOG) ASPART 100 UNITS/ML 10ML VIAL ONE (11:48)
--- NOTE | 2017-08-24 12:17 | PN ---
Progress Note (short form) - Note Progress Note: Chief Complaint: cough History of Present Illness: cough improved. LE edema improving but still remains. ambulating with less sx' s today. no cp, palps, dizziness, sob. Current Medications Generic Name Dose Route Start Last Admin Trade Name Freq PRN Reason Stop Dose Admin Albuterol Sulfate 1 amp 08/19/17 16:39 Ventolin 0.083% Nebulizer Soln - NEB Q6H PRN SHORT OF BREATH/WHEEZING Atorvastatin Calcium 10 mg 08/20/17 22:00 08/23/17 21:04 Lipitor - PO 10 mg HS [facility] Administration Furosemide 40 mg 08/24/17 10:00 08/24/17 09:59 Lasix Injection - IVPUSH 40 mg DAILY [facility] Administration Guaifenesin 5 ml 08/23/17 16:50 Diabetic Tussin Dm - PO Q6H PRN COUGH Heparin Sodium (Porcine) 1,000 unit 08/19/17 23:32 08/20/17 21:13 Heparin - IVPUSH 1,000 unit PRN PRN Administration Heparin Heparin Sodium (Porcine) 5,000 unit 08/19/17 23:32 Heparin - IVPUSH PRN PRN Heparin HEPARIN SOD,PORK IN 0.45% NACL 25,000 units in 500 mls @ 20 mls/hr 08/19/17 23 :32 08/24/17 09:58 Heparin-1/2ns 25,000 Units/500 IVPB 1,100 units/hr TITR [facility] 22 mls/hr Protocol Administration 1,000 UNITS/HR Insulin Aspart 1 vial 08/20/17 07:00 08/24/17 06:02 Novolog Vial Sliding Scale - SQ Not Given ACHS [facility] Protocol Insulin Detemir 10 units 08/20/17 07:00 08/24/17 06:02 Levemir Vial SQ 10 unit AM [facility] Administration Lisinopril 5 mg 08/20/17 10:00 08/24/17 09:59 Prinivil PO 5 mg DAILY [facility] Administration Metoprolol Succinate 100 mg 08/22/17 22:00 08/24/17 09:59 Toprol Xl - PO 100 mg BID [facility] Administration Warfarin Sodium 7.5 mg 08/22/17 15:26 08/23/17 17:59 Coumadin - PO 7.5 mg DAILY@1800 [facility] Administration - Objective Vital Signs: Vital Signs Period Temp Pulse Resp BP Sys/Soriano Pulse Ox Last 24 Hr 97.7 F-98.2 F 61-111 18-20 109-139/64-101 97-98 Constitutional: Yes: No Distress, Calm, Obese Eyes: No: Sclera Icterus HENT: No: Nasal Congestion Cardiovascular: Yes: Pulse Irregular, JVD, S1, S2, Other (PMI non diplaced). No : Gallop, Murmur Respiratory: Yes: CTA Bilaterally. No: Accessory Muscle Use, Rales, Wheezes Gastrointestinal: Yes: Normal Bowel Sounds, Soft. No: Tenderness Musculoskeletal: Yes: Other (No kyphosis) Extremities: No: Cold, Cyanosis Edema: trace - 1+ Integumentary: No: Jaundice Neurological: Yes: Alert, Oriented (x3) Psychiatric: No: Agitated Labs: CBC, BMP 08/24/17 07:30 08/24/17 05:35 - ....Imaging EKG: Other (tele: AFL, overall rate controlled) Assessment/Plan stress test 08/2017: no sx's. no ekg changes. cannot r/o moderate area of mildly intense inf wall ischemia although there may be some element of diaphragmatic attenuation artifact. small area of mild anteroseptal ischemia. mild-mod LVE. EF 40% with mild hk of inf wall. Echo 08/21: mild LVE, severely decr LVEF (global). mild LAE. ecc MR, at least moderate (may be underestimated). 0.7cm mobile density on LV side of AV may represent small strand or fibroelastoma, veg cannot be excluded. + pleural effusion a/p: 56 f no known pmhx (does not follow with doctor) here with sob, cough, wheezing. new aflutter: -metoprolol started here, dose last uptitrated to 100 bid on 08/22 for rapid HRs. Tolerating - no asthmatic sx's. HR's improved today. -? underlying tachy-CMP here--aggressive HR control efforts. -chadsvasc is 4, cont hep gtt and warfarin. -cont tele -can eventually consider YENNIFER/DCCV, however pt would be at hi risk for embolic event if she does not comply with 4 weeks of AC post...given her prior lack of MD f/u and currently no medical insurance/rx drug coverage, she is high risk for AC med non-adherence. Hence, will cont rate control strategy for now, and defer DCCV if HR can be otherwise controlled, until she follows up in office and shows compliance with meds new acute chf: -echo with severe, global LV dysfunction, at least moderate MR (eccentric). BNP 1400 -possible tachy-CMP, vs hypertensive (bp high here, no f/u in long time), vs ? obesity/DIONICIO related, less likely sec to primary MR -should have reassessment of MR severity once better diuresed and adequately HR controlled as outpt, to rule out primary severe MR causing LV dysfunction (in which case MV surgery may be indicated) -no isch ecg, ce's neg x2, no angina sx suspected. -cont metopr (also for AFib hr control), AMARILIS as doing -08/24: cont lasix 40 iv qd, monitor daily bmp, wts -No high risk findings on stress test and weight/attenuation artifact --> higher probability of false positive. Given that clinically patient at risk for tachymyopathy and currently we do not know how well she can be adherent to medications/follow up I recommend repeating echo in a few months to look for improvement. If at that point, she has anginal symptoms or there no improvement in cardiac function, then would consider further invasive ischemic evaluation at that time. Con't medical management of presumed CAD with atorvastatin. No ASA, on AC. AV density: -findings c/w fibrous strand vs fibroelastoma > vegetation -no fever or leucocytosis, no stigmata of IE-- BCx ngtd. htn: -new diagnosis here -bp better controlled with b-b and AMARILIS regimen for LV dysfunction
--- NOTE | 2017-08-24 15:17 | PN ---
Physical Exam: SUBJECTIVE: Patient seen and examined. No acute events overnight. Pt denies any subjective complaints. She states that her breathing and LE edema are better compared to yesterday. OBJECTIVE: Vital Signs Period Temp Pulse Resp BP Sys/Soriano Pulse Ox Last 24 Hr 97.7 F-98.2 F 61-99 18-20 109-139/64-84 97-98 GENERAL: middle aged female, obese, awake, AAOx3 in NAD HEENT: NC, AT, EOMI Neck: no JVD LUNGS: CTAB HEART: irregularly irregular rhythm, no murmurs ABDOMEN: obese, soft, nontender, nondistended, normoactive bowel sounds, no guarding, no rebound, no hepatosplenomegaly, no masses. EXTREMITIES: 2+ LE edema, slightly improved from yesterday NEUROLOGICAL: AAOx3 Laboratory Results - last 24 hr 08/23/17 08/23/17 08/24/17 16:50 21:04 05:35 WBC Cancelled Corrected WBC (auto) Cancelled RBC Cancelled Hgb Cancelled Hct Cancelled MCV Cancelled MCH Cancelled MCHC Cancelled RDW Cancelled Plt Count Cancelled MPV Cancelled Neutrophils % Lymphocytes % Monocytes % Eosinophils % Basophils % Manual Slide Review Cancelled Platelet Comment Cancelled PT with INR INR PTT (Actin FS) Sodium Potassium Chloride Carbon Dioxide Anion Gap BUN Creatinine POC Glucometer 225 206 Random Glucose Calcium 08/24/17 08/24/17 08/24/17 05:35 05:35 05:35 WBC Corrected WBC (auto) RBC Hgb Hct MCV MCH MCHC RDW Plt Count MPV Neutrophils % Lymphocytes % Monocytes % Eosinophils % Basophils % Manual Slide Review Platelet Comment PT with INR INR PTT (Actin FS) 81.4 H Sodium 141 Potassium 4.1 Chloride 102 Carbon Dioxide 31 Anion Gap 8 BUN 12 Creatinine 0.8 POC Glucometer 148 Random Glucose 144 H Calcium 9.0 08/24/17 08/24/17 08/24/17 05:35 05:35 07:30 WBC 3.6 L Corrected WBC (auto) RBC 4.43 Hgb 12.7 Hct 39.9 MCV 90.0 MCH 28.7 MCHC 31.9 L RDW 14.2 Plt Count 187 MPV 11.2 H Neutrophils % 45.0 Lymphocytes % 37.2 Monocytes % 12.6 H Eosinophils % 3.9 Basophils % 1.3 Manual Slide Review Platelet Comment PT with INR 16.90 H INR 1.50 H PTT (Actin FS) Sodium Cancelled Potassium Cancelled Chloride Cancelled Carbon Dioxide Cancelled Anion Gap Cancelled BUN Cancelled Creatinine Cancelled POC Glucometer Random Glucose Cancelled Calcium Cancelled 08/24/17 12:18 WBC Corrected WBC (auto) RBC Hgb Hct MCV MCH MCHC RDW Plt Count MPV Neutrophils % Lymphocytes % Monocytes % Eosinophils % Basophils % Manual Slide Review Platelet Comment PT with INR INR PTT (Actin FS) Sodium Potassium Chloride Carbon Dioxide Anion Gap BUN Creatinine POC Glucometer 210 Random Glucose Calcium Active Medications Generic Name Dose Route Start Last Admin Trade Name Freq PRN Reason Stop Dose Admin Albuterol Sulfate 1 amp 08/19/17 16:39 Ventolin 0.083% Nebulizer Soln - NEB Q6H PRN SHORT OF BREATH/WHEEZING Atorvastatin Calcium 10 mg 08/20/17 22:00 08/23/17 21:04 Lipitor - PO 10 mg HS TRINIDAD Administration Furosemide 40 mg 08/24/17 10:00 08/24/17 09:59 Lasix Injection - IVPUSH 40 mg DAILY TRINIDAD Administration Guaifenesin 5 ml 08/23/17 16:50 Diabetic Tussin Dm - PO Q6H PRN COUGH Heparin Sodium (Porcine) 1,000 unit 08/19/17 23:32 08/20/17 21:13 Heparin - IVPUSH 1,000 unit PRN PRN Administration Heparin Heparin Sodium (Porcine) 5,000 unit 08/19/17 23:32 Heparin - IVPUSH PRN PRN Heparin HEPARIN SOD,PORK IN 0.45% NACL 25,000 units in 500 mls @ 20 mls/hr 08/19/17 23 :32 08/24/17 09:58 Heparin-1/2ns 25,000 Units/500 IVPB 1,100 units/hr TITR TRINIDAD 22 mls/hr Protocol Administration 1,000 UNITS/HR Insulin Aspart 1 vial 08/20/17 07:00 08/24/17 12:19 Novolog Vial Sliding Scale - SQ 4 unit ACHS TRINIDAD Administration Protocol Insulin Detemir 10 units 08/20/17 07:00 08/24/17 06:02 Levemir Vial SQ 10 unit AM TRINIDAD Administration Lisinopril 5 mg 08/20/17 10:00 08/24/17 09:59 Prinivil PO 5 mg DAILY TRINIDAD Administration Metoprolol Succinate 100 mg 08/22/17 22:00 08/24/17 09:59 Toprol Xl - PO 100 mg BID TRINIDAD Administration Warfarin Sodium 7.5 mg 08/22/17 15:26 08/23/17 17:59 Coumadin - PO 7.5 mg DAILY@1800 TRINIDAD Administration ASSESSMENT/PLAN: 56F w/ no significant PMH who presented with SOB, and was found to have A- flutter with RVR and resultant CHF. #A-flutter with RVR - HR between 60-100 - continue toprol 100 BID - INR 1.5 up from 1.35. continue coumadin 7.5mg - cards recs appreciated. YENNIFER and cardioversion too high risk for pt now, might consider later on to check MR - Mobile structure on AV is unlikely vegetation. Will follow Bcx, currently showing no growth x 24 hours #New onset systolic CHF - volume status has improved. No more rales, and she denies SOB. LE edema improving - weight decreased 1.5 kg - IV lasix 40mg - cont low dose lisinopril - pharm MPI: no ischemia, moderately dilated LV, reduced LVEF of 40%, mild hypokinesis of inferior wall -per cards, should have reassessment of MR severity once better diuresed and adequately HR controlled as outpt, to rule out primary severe MR causing LV dysfunction (in which case MV surgery may be indicated) #New diagnosis of DMII - A1c of 12 - cont levemir and SSI - BGM #HTN - continue Lisinopril - continue toprol #Hyperlipidemia - continue low dose lipitor #cough - continue guaifenesin/dextromethorphan #FEN/ppx -no fluids -electrolytes wnl -chol/fat/sodium restricted diet -no GI ppx -heparin to coumadin bridge #Dispo -pending therapeutic INR. Will need coumadin clinic appointment. -Roni oRy MD PGY1 Visit type - Emergency Visit Emergency Visit: Yes ED Registration Date: 08/18/17 Care time: The patient presented to the Emergency Department on the above date and was hospitalized for further evaluation of their emergent condition. - New Patient This patient is new to me today: No - Critical Care Critical Care patient: No
[2017-08-24] MEDS: WARFARIN NA 7.5 MG TABLET (FP) PO SCH (17:32)
--- NOTE | 2017-08-24 19:36 | PN ---
Teaching Attending Note Name of Resident: Roni Roy ATTENDING PHYSICIAN STATEMENT I saw and evaluated the patient. I reviewed the resident's note and discussed the case with the resident. I agree with the resident's findings and plan as documented. SUBJECTIVE: Patient is doing well, has no new complains. OBJECTIVE: Vital Signs Temperature 98.1 F 08/24/17 18:00 Pulse Rate 70 08/24/17 18:00 Respiratory Rate 20 08/24/17 18:00 Blood Pressure 141/65 08/24/17 18:00 O2 Sat by Pulse Oximetry (%) 97 08/24/17 09:00 CBCD WBC 3.6 K/mm3 (4.0-10.0) L 08/24/17 07:30 RBC 4.43 M/mm3 (3.60-5.2) 08/24/17 07:30 Hgb 12.7 GM/dL (10.7-15.3) 08/24/17 07:30 Hct 39.9 % (32.4-45.2) 08/24/17 07:30 MCV 90.0 fl (80-96) 08/24/17 07:30 MCHC 31.9 g/dl (32.0-36.0) L 08/24/17 07:30 RDW 14.2 % (11.6-15.6) 08/24/17 07:30 Plt Count 187 K/MM3 (134-434) 08/24/17 07:30 MPV 11.2 fl (7.5-11.1) H 08/24/17 07:30 CMP Sodium 141 mmol/L (136-145) 08/24/17 05:35 Potassium 4.1 mmol/L (3.5-5.1) 08/24/17 05:35 Chloride 102 mmol/L (98-107) 08/24/17 05:35 Carbon Dioxide 31 mmol/L (21-32) 08/24/17 05:35 Anion Gap 8 (8-16) 08/24/17 05:35 BUN 12 mg/dL (7-18) 08/24/17 05:35 Creatinine 0.8 mg/dL (0.55-1.02) 08/24/17 05:35 Creat Clearance w eGFR > 60 (>60) 08/20/17 07:30 Random Glucose 144 mg/dL (74-106) H 08/24/17 05:35 Calcium 9.0 mg/dL (8.5-10.1) 08/24/17 05:35 Total Bilirubin 1.2 mg/dL (0.2-1.0) H 08/20/17 07:30 AST 17 U/L (15-37) D 08/20/17 07:30 ALT 39 U/L (12-78) D 08/20/17 07:30 Alkaline Phosphatase 100 U/L (45-117) D 08/20/17 07:30 Total Protein 5.8 g/dl (6.4-8.2) L 08/20/17 07:30 Albumin 2.7 g/dl (3.4-5.0) L 08/20/17 07:30 CARDIAC ENZYMES Creatine Kinase 57 IU/L (26-192) 08/19/17 05:55 Troponin I 0.03 ng/ml (0.00-0.05) 08/19/17 05:55 Current Medications Generic Name Dose Route Start Last Admin Trade Name Freq PRN Reason Stop Dose Admin Albuterol Sulfate 1 amp 08/19/17 16:39 Ventolin 0.083% Nebulizer Soln - NEB Q6H PRN SHORT OF BREATH/WHEEZING Atorvastatin Calcium 10 mg 08/20/17 22:00 08/23/17 21:04 Lipitor - PO 10 mg HS TRINIDAD Administration Furosemide 40 mg 08/24/17 10:00 08/24/17 09:59 Lasix Injection - IVPUSH 40 mg DAILY TRINIDAD Administration Guaifenesin 5 ml 08/23/17 16:50 Diabetic Tussin Dm - PO Q6H PRN COUGH Heparin Sodium (Porcine) 1,000 unit 08/19/17 23:32 08/20/17 21:13 Heparin - IVPUSH 1,000 unit PRN PRN Administration Heparin Heparin Sodium (Porcine) 5,000 unit 08/19/17 23:32 Heparin - IVPUSH PRN PRN Heparin HEPARIN SOD,PORK IN 0.45% NACL 25,000 units in 500 mls @ 20 mls/hr 08/19/17 23 :32 08/24/17 15:37 Heparin-1/2ns 25,000 Units/500 IVPB 1,100 units/hr TITR TRINIDAD 22 mls/hr Protocol Administration 1,000 UNITS/HR Insulin Aspart 1 vial 08/20/17 07:00 08/24/17 17:32 Novolog Vial Sliding Scale - SQ 4 unit ACHS TRINIDAD Administration Protocol Insulin Detemir 10 units 08/20/17 07:00 08/24/17 06:02 Levemir Vial SQ 10 unit AM TRINIDAD Administration Lisinopril 5 mg 08/20/17 10:00 08/24/17 09:59 Prinivil PO 5 mg DAILY TRINIDAD Administration Metoprolol Succinate 100 mg 08/22/17 22:00 08/24/17 09:59 Toprol Xl - PO 100 mg BID TRINIDAD Administration Warfarin Sodium 7.5 mg 08/22/17 15:26 08/24/17 17:32 Coumadin - PO 7.5 mg DAILY@1800 TRINIDAD Administration Home Medications Medication Instructions Recorded NK [No Known Home Medication] 08/19/17 Laboratory Tests 08/22/17 08/23/17 08/24/17 07:22 06:00 05:35 PT with INR 13.40 H 15.30 H 16.90 H INR 1.19 H 1.35 H 1.50 H PE: Heart: S1S2 positive, afib with rate controlled. rest of PE per resident's note Microbiology 08/22/17 06:10 Blood - Peripheral Venous Blood Culture - Preliminary NO GROWTH OBTAINED AFTER 72 HOURS, INCUBATION TO CONTINUE FOR 2 DAYS. 08/22/17 06:15 Blood - Peripheral Venous Blood Culture - Preliminary NO GROWTH OBTAINED AFTER 72 HOURS, INCUBATION TO CONTINUE FOR 2 DAYS. ASSESSMENT AND PLAN: 56 y/o lady with no recent medical care , and no known PMH who presented with SOB , and was found to have A flutter with RVR and resultant CHF # A Fib with RVR, now the the rate is controlled. continue toprol 100 BID, on coumadin 7.5 mg po daily , Mobile structure on AV , is unlikely vegetation. follow blood cx # New onset systolic CHF. cont lasix 40 IV daily as per nike athlete, cont low dose lisinopril , Nuclear stress test with ischemia . decision about cath per card. as per GItig , YENNIFER as per nike athlete as an outpatient # New diagnosis of DMII: A1c 12; cont levemir and SSI # HTN: Lisinopril , toprol # Hyperlipidemia: low dose lipitor DVT Px: on coumadin
[2017-08-24] MEDS: ATORVASTATIN CA 10 MG TABLET (FP) PO SCH (21:31)
[2017-08-25] MEDS: INSULIN SLIDING SCALE (NOVOLOG) 1 VIAL SQ SCH ×4 (06:13→22:22)
[2017-08-25] MEDS: INSULIN DETEMIR 100 UNITS/ML MDV SQ SCH (06:13)
[2017-08-25] MEDS: HEPARIN SOD,PORK IN 0.45% NACL 25,000 UNITS/500 ML INFUS.BAG IVPB SCH ×2 (06:14→23:00)
[2017-08-25] MEDS ORDERED: INSULIN (NOVOLOG) ASPART 100 UNITS/ML 10ML VIAL ONE (06:34)
[2017-08-25 07:23] LABS: BASO % 1.7 % (0-2.0); EOS % 4.1 % (0-4.5); MCH 28.7 pg (25.7-33.7); MCHC 32.1 g/dl (32.0-36.0); MEAN CELL VOLUME 89.4 fl (80-96); MEAN PLT VOLUME 11.5 fl (7.5-11.1); NEUT % 43.8 % (42.8-82.8); PLATELET COUNT 193 K/MM3 (134-434); RDW 14.2 % (11.6-15.6)
[2017-08-25 07:47] LABS: INR 1.56 (0.82-1.09); PROTHROMBIN TIME (PATIENT) 17.6 SEC (9.98-11.88)
[2017-08-25 07:48] LABS: ALBUMIN 3.1 g/dl (3.4-5.0); ANION GAP 8 (8-16); CALCIUM 8.8 mg/dL (8.5-10.1); CO2 31 mmol/L (21-32); CREATININE 0.7 mg/dL (0.55-1.02); GLUCOSE,RANDOM 164 mg/dL (74-106); SGOT/AST 16 U/L (15-37); SGPT/ALT 32 U/L (12-78)
[2017-08-25 07:50] LABS: ALK PHOS 86 U/L (45-117); BILIRUBIN,TOTAL 0.8 mg/dL (0.2-1.0); TOT PROT 6.4 g/dl (6.4-8.2)
[2017-08-25] MEDS ORDERED: WARFARIN NA 10 MG TABLET (FP) PO SCH (10:03)
--- NOTE | 2017-08-25 10:27 | PN ---
Progress Note (short form) - Note Progress Note: Chief Complaint: cough History of Present Illness: cough improved. LE edema improving but still remains. ambulating with less sx' s. no cp, palps, dizziness, sob. Current Medications Generic Name Dose Route Start Last Admin Trade Name Freq PRN Reason Stop Dose Admin Albuterol Sulfate 1 amp 08/19/17 16:39 Ventolin 0.083% Nebulizer Soln - NEB Q6H PRN SHORT OF BREATH/WHEEZING Atorvastatin Calcium 10 mg 08/20/17 22:00 08/24/17 21:31 Lipitor - PO 10 mg HS TRINIDAD Administration Furosemide 40 mg 08/24/17 10:00 08/24/17 09:59 Lasix Injection - IVPUSH 08/25/17 12:00 40 mg DAILY TRINIDAD Administration Furosemide 40 mg 08/25/17 16:00 Lasix Injection - IVPUSH 08/25/17 16:01 ONCE ONE Furosemide 40 mg 08/26/17 06:00 Lasix Injection - IVPUSH BID@0600,1400 TRINIDAD Guaifenesin 5 ml 08/23/17 16:50 Diabetic Tussin Dm - PO Q6H PRN COUGH Heparin Sodium (Porcine) 1,000 unit 08/19/17 23:32 08/20/17 21:13 Heparin - IVPUSH 1,000 unit PRN PRN Administration Heparin Heparin Sodium (Porcine) 5,000 unit 08/19/17 23:32 Heparin - IVPUSH PRN PRN Heparin HEPARIN SOD,PORK IN 0.45% NACL 25,000 units in 500 mls @ 20 mls/hr 08/19/17 23 :32 08/25/17 06:14 Heparin-1/2ns 25,000 Units/500 IVPB 1,100 units/hr TITR TRINIDAD 22 mls/hr Protocol Administration 1,000 UNITS/HR Insulin Aspart 1 vial 08/20/17 07:00 08/25/17 06:13 Novolog Vial Sliding Scale - SQ 2 unit ACHS TRINIDAD Administration Protocol Insulin Detemir 10 units 08/20/17 07:00 08/25/17 06:13 Levemir Vial SQ 10 unit AM TRINIDAD Administration Lisinopril 5 mg 08/20/17 10:00 08/24/17 09:59 Prinivil PO 5 mg DAILY TRINIDAD Administration Metoprolol Succinate 100 mg 08/22/17 22:00 08/24/17 21:31 Toprol Xl - PO 100 mg BID TRINIDAD Administration Warfarin Sodium 10 mg 08/25/17 10:03 Coumadin - PO DAILY@1800 [facility] - Objective Vital Signs: Vital Signs Period Temp Pulse Resp BP Sys/Soriano Pulse Ox Last 24 Hr 97.6 F-98.1 F 64-93 20-24 98-141/52-83 97 Constitutional: Yes: No Distress, Calm, Obese Eyes: No: Sclera Icterus HENT: No: Nasal Congestion Cardiovascular: Yes: Pulse Irregular, JVD, S1, S2, Other (PMI non diplaced). No : Gallop, Murmur Respiratory: Yes: CTA Bilaterally. No: Accessory Muscle Use, Rales, Wheezes Gastrointestinal: Yes: Normal Bowel Sounds, Soft. No: Tenderness Musculoskeletal: Yes: Other (No kyphosis) Extremities: No: Cold, Cyanosis Edema: trace - 1+ Integumentary: No: Jaundice Neurological: Yes: Alert, Oriented (x3) Psychiatric: No: Agitated Labs: CBC, BMP 08/25/17 06:30 - ....Imaging EKG: Other (tele: AFL, overall rate controlled) stress test 08/2017: no sx's. no ekg changes. cannot r/o moderate area of mildly intense inf wall ischemia although there may be some element of diaphragmatic attenuation artifact. small area of mild anteroseptal ischemia. mild-mod LVE. EF 40% with mild hk of inf wall. Echo 08/21: mild LVE, severely decr LVEF (global). mild LAE. ecc MR, at least moderate (may be underestimated). 0.7cm mobile density on LV side of AV may represent small strand or fibroelastoma, veg cannot be excluded. + pleural effusion a/p: 56 f no known pmhx (does not follow with doctor) here with sob, cough, wheezing. new aflutter: -metoprolol started here, dose last uptitrated to 100 bid on 08/22 for rapid HRs. Tolerating - no asthmatic sx's. HR's improved today. -? underlying tachy-CMP here--aggressive HR control efforts. -chadsvasc is 4, cont hep gtt and warfarin. -cont tele -can eventually consider YENNIFER/DCCV, however pt would be at hi risk for embolic event if she does not comply with 4 weeks of AC post...given her prior lack of MD f/u and currently no medical insurance/rx drug coverage, she is high risk for AC med non-adherence. Hence, will cont rate control strategy for now, and defer DCCV if HR can be otherwise controlled, until she follows up in office and shows compliance with meds new acute chf: -echo with severe, global LV dysfunction, at least moderate MR (eccentric). BNP 1400 -possible tachy-CMP, vs hypertensive (bp high here, no f/u in long time), vs ? obesity/DIONICIO related, less likely sec to primary MR -should have reassessment of MR severity once better diuresed and adequately HR controlled as outpt, to rule out primary severe MR causing LV dysfunction (in which case MV surgery may be indicated) -no isch ecg, ce's neg x2, no angina sx suspected. -cont metopr (also for AFib hr control), AMARILIS as doing -08/24: cont lasix 40 iv qd, monitor daily bmp, wts -08/25: cr stable, still with overload. will increase to lasix 40 iv bid from qd -No high risk findings on stress test and weight/attenuation artifact --> higher probability of false positive. Given that clinically patient at risk for tachymyopathy and currently we do not know how well she can be adherent to medications/follow up I recommend repeating echo in a few months to look for improvement. If at that point, she has anginal symptoms or there no improvement in cardiac function, then would consider further invasive ischemic evaluation at that time. Con't medical management of presumed CAD with atorvastatin. No ASA, on AC. AV density: -findings c/w fibrous strand vs fibroelastoma > vegetation -no fever or leucocytosis, no stigmata of IE-- BCx ngtd. htn: -new diagnosis here -bp better controlled with b-b and AMARILIS regimen for LV dysfunction
[2017-08-25] MEDS ORDERED: PT OWN MED DRAWER 7, Y5N ONE (10:36)
--- NOTE | 2017-08-25 10:40 | PN ---
Physical Exam: SUBJECTIVE: Patient seen and examined. No acute events overnight. Pt states that she is comfortable without any subjective complaints. Her breathing is fine, and LE edema is improving slowly. OBJECTIVE: Vital Signs Period Temp Pulse Resp BP Sys/Soriano Pulse Ox Last 24 Hr 97.6 F-98.1 F 64-93 20-24 98-141/52-83 97 GENERAL: middle aged female, obese, awake, AAOx3 in NAD HEENT: NC, AT, EOMI Neck: no JVD LUNGS: CTAB HEART: irregularly irregular rhythm, no murmurs ABDOMEN: obese, soft, nontender, nondistended, normoactive bowel sounds, no guarding, no rebound, no hepatosplenomegaly, no masses. EXTREMITIES: 2+ LE edema, slightly improved from yesterday NEUROLOGICAL: AAOx3 Laboratory Results - last 24 hr 08/24/17 08/24/17 08/24/17 12:18 17:31 20:17 WBC RBC Hgb Hct MCV MCH MCHC RDW Plt Count MPV Neutrophils % Lymphocytes % Monocytes % Eosinophils % Basophils % PT with INR INR PTT (Actin FS) Sodium Potassium Chloride Carbon Dioxide Anion Gap BUN Creatinine Creat Clearance w eGFR POC Glucometer 210 224 191 Random Glucose Calcium Total Bilirubin AST ALT Alkaline Phosphatase Total Protein Albumin 08/25/17 08/25/17 08/25/17 05:57 06:30 06:30 WBC RBC Hgb Hct MCV MCH MCHC RDW Plt Count MPV Neutrophils % Lymphocytes % Monocytes % Eosinophils % Basophils % PT with INR INR PTT (Actin FS) 83.0 H Sodium 139 Potassium 3.7 Chloride 100 Carbon Dioxide 31 Anion Gap 8 BUN 13 Creatinine 0.7 Creat Clearance w eGFR > 60 POC Glucometer 167 Random Glucose 164 H Calcium 8.8 Total Bilirubin 0.8 D AST 16 ALT 32 Alkaline Phosphatase 86 Total Protein 6.4 Albumin 3.1 L 08/25/17 08/25/17 06:30 06:30 WBC 4.0 RBC 4.45 Hgb 12.8 Hct 39.8 MCV 89.4 MCH 28.7 MCHC 32.1 RDW 14.2 Plt Count 193 MPV 11.5 H Neutrophils % 43.8 Lymphocytes % 38.4 Monocytes % 12.0 H Eosinophils % 4.1 Basophils % 1.7 PT with INR 17.60 H INR 1.56 H PTT (Actin FS) Sodium Potassium Chloride Carbon Dioxide Anion Gap BUN Creatinine Creat Clearance w eGFR POC Glucometer Random Glucose Calcium Total Bilirubin AST ALT Alkaline Phosphatase Total Protein Albumin Active Medications Generic Name Dose Route Start Last Admin Trade Name Pepe PRN Reason Stop Dose Admin Albuterol Sulfate 1 amp 08/19/17 16:39 Ventolin 0.083% Nebulizer Soln - NEB Q6H PRN SHORT OF BREATH/WHEEZING Atorvastatin Calcium 10 mg 08/20/17 22:00 08/24/17 21:31 Lipitor - PO 10 mg HS TRINIDAD Administration Furosemide 40 mg 08/24/17 10:00 08/24/17 09:59 Lasix Injection - IVPUSH 08/25/17 12:00 40 mg DAILY TRINIDAD Administration Furosemide 40 mg 08/25/17 16:00 Lasix Injection - IVPUSH 08/25/17 16:01 ONCE ONE Furosemide 40 mg 08/26/17 06:00 Lasix Injection - IVPUSH BID@0600,1400 TRINIDAD Guaifenesin 5 ml 08/23/17 16:50 Diabetic Tussin Dm - PO Q6H PRN COUGH Heparin Sodium (Porcine) 1,000 unit 08/19/17 23:32 08/20/17 21:13 Heparin - IVPUSH 1,000 unit PRN PRN Administration Heparin Heparin Sodium (Porcine) 5,000 unit 08/19/17 23:32 Heparin - IVPUSH PRN PRN Heparin HEPARIN SOD,PORK IN 0.45% NACL 25,000 units in 500 mls @ 20 mls/hr 08/19/17 23 :32 08/25/17 06:14 Heparin-1/2ns 25,000 Units/500 IVPB 1,100 units/hr TITR TRINIDAD 22 mls/hr Protocol Administration 1,000 UNITS/HR Insulin Aspart 1 vial 08/20/17 07:00 08/25/17 06:13 Novolog Vial Sliding Scale - SQ 2 unit ACHS TRINIDAD Administration Protocol Insulin Detemir 10 units 08/20/17 07:00 08/25/17 06:13 Levemir Vial SQ 10 unit AM TRINIDAD Administration Lisinopril 5 mg 08/20/17 10:00 08/24/17 09:59 Prinivil PO 5 mg DAILY TRINIDAD Administration Metoprolol Succinate 100 mg 08/22/17 22:00 08/24/17 21:31 Toprol Xl - PO 100 mg BID TRINIDAD Administration Warfarin Sodium 10 mg 08/25/17 10:03 Coumadin - PO DAILY@1800 [facility] ASSESSMENT/PLAN: 56F w/ no significant PMH who presented with SOB, and was found to have A- flutter with RVR and resultant CHF. #A-flutter with RVR - HR between 65-95 - continue toprol 100 BID - INR 1.56 up from 1.5. increase coumadin to 10mg - cards recs appreciated. YENNIFER and cardioversion too high risk for pt now, might consider later on to check MR - Mobile structure on AV is unlikely vegetation. Will follow Bcx, currently showing no growth x 24 hours #New onset systolic CHF - volume status has improved. No more rales, and she denies SOB. LE edema improving - weight increased 0.5 kg - IV lasix 40mg - cont low dose lisinopril - pharm MPI: no ischemia, moderately dilated LV, reduced LVEF of 40%, mild hypokinesis of inferior wall -per cards, should have reassessment of MR severity once better diuresed and adequately HR controlled as outpt, to rule out primary severe MR causing LV dysfunction (in which case MV surgery may be indicated) #New diagnosis of DMII - A1c of 12 - cont levemir and SSI - BGM #HTN - continue Lisinopril - continue toprol #Hyperlipidemia - continue low dose lipitor #cough - continue guaifenesin/dextromethorphan #FEN/ppx -no fluids -electrolytes wnl -chol/fat/sodium restricted diet -no GI ppx -heparin to coumadin bridge #Dispo -pending therapeutic INR. Will need coumadin clinic appointment. -Roni Roy MD PGY1 Visit type - Emergency Visit Emergency Visit: Yes ED Registration Date: 08/18/17 Care time: The patient presented to the Emergency Department on the above date and was hospitalized for further evaluation of their emergent condition. - New Patient This patient is new to me today: No - Critical Care Critical Care patient: No
--- NOTE | 2017-08-25 10:50 | MSN ---
Progress Note (SOAP) - Subjective History of Present Illness: Patient was examined awake, sitting upright in no acute distress. Says she slept well, Warm water help with her coughing overnight. Her spent the night. BM over night was normal, Appetite has been normal for her. Denies any urinary sx's. Denies any fevers, chills, nausea, vomiting, chest pain, SOB, headache. No acute events over last night as per nursing. - Current Medications Current Medications: Active Medications Albuterol Sulfate (Ventolin 0.083% Nebulizer Soln -) 1 amp NEB Q6H PRN PRN Reason: SHORT OF BREATH/WHEEZING Atorvastatin Calcium (Lipitor -) 10 mg PO HS [facility] Last Admin: 08/24/17 21:31 Dose: 10 mg Furosemide (Lasix Injection -) 40 mg IVPUSH DAILY [facility] Stop: 08/25/17 12:00 Last Admin: 08/24/17 09:59 Dose: 40 mg Furosemide (Lasix Injection -) 40 mg IVPUSH ONCE ONE Stop: 08/25/17 16:01 Furosemide (Lasix Injection -) 40 mg IVPUSH BID@0600,1400 [facility] Guaifenesin (Diabetic Tussin Dm -) 5 ml PO Q6H PRN PRN Reason: COUGH Heparin Sodium (Porcine) (Heparin -) 1,000 unit IVPUSH PRN PRN PRN Reason: Heparin Last Admin: 08/20/17 21:13 Dose: 1,000 unit Heparin Sodium (Porcine) (Heparin -) 5,000 unit IVPUSH PRN PRN PRN Reason: Heparin HEPARIN SOD,PORK IN 0.45% NACL (Heparin-1/2ns 25,000 Units/500) 25,000 units in 500 mls @ 20 mls/hr IVPB TITR [facility]; 1,000 UNITS/HR PRN Reason: Protocol Last Admin: 08/25/17 06:14 Dose: 1,100 units/hr, 22 mls/hr Insulin Aspart (Novolog Vial Sliding Scale -) 1 vial SQ ACHS [facility] PRN Reason: Protocol Last Admin: 08/25/17 06:13 Dose: 2 unit Insulin Detemir (Levemir Vial) 10 units SQ AM [facility] Last Admin: 08/25/17 06:13 Dose: 10 unit Lisinopril (Prinivil) 5 mg PO DAILY [facility] Last Admin: 08/24/17 09:59 Dose: 5 mg Metoprolol Succinate (Toprol Xl -) 100 mg PO BID [facility] Last Admin: 08/24/17 21:31 Dose: 100 mg Warfarin Sodium (Coumadin -) 10 mg PO DAILY@1800 [facility] - Objective Vital Signs: Vital Signs Temperature 97.8 F 08/25/17 06:00 Pulse Rate 75 08/25/17 06:00 Respiratory Rate 24 08/25/17 06:00 Blood Pressure 125/80 08/25/17 06:00 O2 Sat by Pulse Oximetry (%) 97 08/24/17 21:00 Constitutional: Yes: No Distress, Calm Eyes: Yes: EOM Intact, PERRL Cardiovascular: Yes: Regular Rate and Rhythm, S1, S2 Respiratory: Yes: CTA Bilaterally (No Bibasilar wheezes noted) Gastrointestinal: Yes: Normal Bowel Sounds, Soft, Abdomen, Obese. No: Tenderness, Tenderness, Rebound Peripheral Pulses: Left Radial: 2+, Right Radial: 2+, Left Doralis Pedis: 1+, Right Dorsalis Pedis: 1+ Edema: LLE: 2+ (No Change from yesterday), RLE: 2+ (No Change from yesterday) Neurological: Yes: Alert, Oriented, Cran Nerves II-XII Intact Labs Lab Results: CBC, BMP 08/25/17 06:30 Problem List - Problems (1) Afib Code(s): I48.91 - UNSPECIFIED ATRIAL FIBRILLATION Qualifiers: Atrial fibrillation type: unspecified Qualified Code(s): I48.91 - Unspecified atrial fibrillation (2) SOB (shortness of breath) Code(s): R06.02 - SHORTNESS OF BREATH Assessment/Plan 56 y/o female with no known PMHx who presented with SOB was found to have CHF due to Atrial Flutter and was admitted to the ICU. Patient responded well to Lasix tx; SOB, Rales and Lower extremity improved. Can consider D/C once INR reaches therapeutic levels. 1. New Onset CHF likely due to Atrial Flutter with RVR - Continue PO Lasix 40mg BID - Continue Metoprolol Succinate 100 mg PO Daily; HR range over the last 24hrs from 61-93. - Increase Coumadin to 10mg PO Daily; INR remains Subtherapeutic at 1.56 - Continue Heparin gtt in bridging to Coumadin - Continue Lisinopril 5mg PO Daily 2. Type 2 DM - Recent A1c: 12.5%; BG this morning was 164 - Continue Insulin Detemir 10 units SUBQ in AM - ISS 3. HTN - Continue Metoprolol Succinate 100 mg PO Daily - Continue Lisinopril 5mg PO Daily 4. Hyperlipidemia - Continue Lipitor 10mg PO HS [facility] 5. PPx - Increase Coumadin to 10mg PO Daily - No GI PPx 6. FEN - No IV Fluids - Electrolytes WNL - Sodium Restricted diet Dispo: Continue to monitor on Telemetry, Will consider D/C once INR reaches therapeutic levels
[2017-08-25] MEDS: FUROSEMIDE 40 MG/4 ML INJECTABLE VIAL IVPUSH SCH (10:56)
[2017-08-25] MEDS: LISINOPRIL 5 MG TABLET (FP) PO SCH (10:56)
[2017-08-25] MEDS: METOPROLOL SUCCINATE 100 MG TAB.SR.24H (FP) PO SCH ×2 (10:56→22:22)
--- NOTE | 2017-08-25 11:15 | PN ---
Teaching Attending Note Name of Resident: Roni Roy ATTENDING PHYSICIAN STATEMENT I saw and evaluated the patient. I reviewed the resident's note and discussed the case with the resident. I agree with the resident's findings and plan as documented. SUBJECTIVE: Patient is comfortable no new complains.wants to go home OBJECTIVE: Vital Signs Temperature 97.8 F 08/25/17 06:00 Pulse Rate 75 08/25/17 06:00 Respiratory Rate 24 08/25/17 06:00 Blood Pressure 125/80 08/25/17 06:00 O2 Sat by Pulse Oximetry (%) 97 08/24/17 21:00 CBCD WBC 4.0 K/mm3 (4.0-10.0) 08/25/17 06:30 RBC 4.45 M/mm3 (3.60-5.2) 08/25/17 06:30 Hgb 12.8 GM/dL (10.7-15.3) 08/25/17 06:30 Hct 39.8 % (32.4-45.2) 08/25/17 06:30 MCV 89.4 fl (80-96) 08/25/17 06:30 MCHC 32.1 g/dl (32.0-36.0) 08/25/17 06:30 RDW 14.2 % (11.6-15.6) 08/25/17 06:30 Plt Count 193 K/MM3 (134-434) 08/25/17 06:30 MPV 11.5 fl (7.5-11.1) H 08/25/17 06:30 CMP Sodium 139 mmol/L (136-145) 08/25/17 06:30 Potassium 3.7 mmol/L (3.5-5.1) 08/25/17 06:30 Chloride 100 mmol/L (98-107) 08/25/17 06:30 Carbon Dioxide 31 mmol/L (21-32) 08/25/17 06:30 Anion Gap 8 (8-16) 08/25/17 06:30 BUN 13 mg/dL (7-18) 08/25/17 06:30 Creatinine 0.7 mg/dL (0.55-1.02) 08/25/17 06:30 Creat Clearance w eGFR > 60 (>60) 08/25/17 06:30 Random Glucose 164 mg/dL (74-106) H 08/25/17 06:30 Calcium 8.8 mg/dL (8.5-10.1) 08/25/17 06:30 Total Bilirubin 0.8 mg/dL (0.2-1.0) D 08/25/17 06:30 AST 16 U/L (15-37) 08/25/17 06:30 ALT 32 U/L (12-78) 08/25/17 06:30 Alkaline Phosphatase 86 U/L (45-117) 08/25/17 06:30 Total Protein 6.4 g/dl (6.4-8.2) 08/25/17 06:30 Albumin 3.1 g/dl (3.4-5.0) L 08/25/17 06:30 CARDIAC ENZYMES Creatine Kinase 57 IU/L (26-192) 08/19/17 05:55 Troponin I 0.03 ng/ml (0.00-0.05) 08/19/17 05:55 Current Medications Generic Name Dose Route Start Last Admin Trade Name Freq PRN Reason Stop Dose Admin Albuterol Sulfate 1 amp 08/19/17 16:39 Ventolin 0.083% Nebulizer Soln - NEB Q6H PRN SHORT OF BREATH/WHEEZING Atorvastatin Calcium 10 mg 08/20/17 22:00 08/24/17 21:31 Lipitor - PO 10 mg HS [facility] Administration Furosemide 40 mg 08/24/17 10:00 08/25/17 10:56 Lasix Injection - IVPUSH 08/25/17 12:00 40 mg DAILY [facility] Administration Furosemide 40 mg 08/25/17 16:00 Lasix Injection - IVPUSH 08/25/17 16:01 ONCE ONE Furosemide 40 mg 08/26/17 06:00 Lasix Injection - IVPUSH BID@0600,1400 [facility] Guaifenesin 5 ml 08/23/17 16:50 Diabetic Tussin Dm - PO Q6H PRN COUGH Heparin Sodium (Porcine) 1,000 unit 08/19/17 23:32 08/20/17 21:13 Heparin - IVPUSH 1,000 unit PRN PRN Administration Heparin Heparin Sodium (Porcine) 5,000 unit 08/19/17 23:32 Heparin - IVPUSH PRN PRN Heparin HEPARIN SOD,PORK IN 0.45% NACL 25,000 units in 500 mls @ 20 mls/hr 08/19/17 23 :32 08/25/17 06:14 Heparin-1/2ns 25,000 Units/500 IVPB 1,100 units/hr TITR [facility] 22 mls/hr Protocol Administration 1,000 UNITS/HR Insulin Aspart 1 vial 08/20/17 07:00 08/25/17 06:13 Novolog Vial Sliding Scale - SQ 2 unit ACHS [facility] Administration Protocol Insulin Detemir 10 units 08/20/17 07:00 08/25/17 06:13 Levemir Vial SQ 10 unit AM [facility] Administration Lisinopril 5 mg 08/20/17 10:00 08/25/17 10:56 Prinivil PO 5 mg DAILY [facility] Administration Metoprolol Succinate 100 mg 08/22/17 22:00 08/25/17 10:56 Toprol Xl - PO 100 mg BID [facility] Administration Warfarin Sodium 10 mg 08/25/17 10:03 Coumadin - PO DAILY@1800 [facility] Home Medications Medication Instructions Recorded NK [No Known Home Medication] 08/19/17 Laboratory Tests 08/22/17 08/23/17 08/24/17 07:22 06:00 05:35 PT with INR 13.40 H 15.30 H 16.90 H INR 1.19 H 1.35 H 1.50 H 08/25/17 06:30 with INR INR 1.56 H PE: Heart: S1S2 positive, afib with rate controlled. rest of PE per resident's note Microbiology 08/22/17 06:10 Blood - Peripheral Venous Blood Culture - Preliminary NO GROWTH OBTAINED AFTER 72 HOURS, INCUBATION TO CONTINUE FOR 2 DAYS. 08/22/17 06:15 Blood - Peripheral Venous Blood Culture - Preliminary NO GROWTH OBTAINED AFTER 72 HOURS, INCUBATION TO CONTINUE FOR 2 DAYS. ASSESSMENT AND PLAN: 56 y/o lady with no recent medical care , and no known PMH who presented with SOB , and was found to have A flutter with RVR and resultant CHF # A Fib rate is controlled now on coumdin with daily PT/INR will increase to 10mg daily today since INR is 1.56 today continue toprol 100 BID, Mobile structure on AV , is unlikely vegetation. further w/u YENNIFER as an outpatient as per # New onset systolic CHF. cont lasix 40 IV daily as per broadcast operations engineer, cont low dose lisinopril , Nuclear stress test with ischemia . decision about cath per card. as per GItcamilo , YENNIFER as per broadcast operations engineer as an outpatient # New diagnosis of DMII: A1c 12; cont levemir and SSI # HTN: Lisinopril , toprol # Hyperlipidemia: low dose lipitor DVT Px: on coumadin
[2017-08-25] MEDS ORDERED: POTASSIUM CHLORIDE TABS 20 MEQ TABLET.ER (FP) PO ONE (11:20)
--- NOTE | 2017-08-25 12:59 | PN ---
Progress Note (short form) - Note Progress Note: Overall feels better. No CP or SOB. Intake & Output 08/22/17 08/23/17 08/24/17 08/25/17 23:59 23:59 23:59 23:59 Intake Total 561 811 538 154 Balance 561 811 538 154 Weight 313 lb 2 oz 310 lb 8 oz 311 lb 8 oz Last Vital Signs Temp Pulse Resp BP Pulse Ox 97.8 F 75 24 125/80 97 08/25/17 06:00 08/25/17 06:00 08/25/17 06:00 08/25/17 06:00 08/24/17 21:00 Active Medications Atorvastatin Calcium (Lipitor -) 10 mg PO HS [facility] Last Admin: 08/24/17 21:31 Dose: 10 mg Furosemide (Lasix Injection -) 40 mg IVPUSH ONCE ONE Stop: 08/25/17 16:01 Furosemide (Lasix Injection -) 40 mg IVPUSH BID@0600,1400 [facility] Heparin Sodium (Porcine) (Heparin -) 1,000 unit IVPUSH PRN PRN PRN Reason: Heparin Last Admin: 08/20/17 21:13 Dose: 1,000 unit Heparin Sodium (Porcine) (Heparin -) 5,000 unit IVPUSH PRN PRN PRN Reason: Heparin HEPARIN SOD,PORK IN 0.45% NACL (Heparin-1/2ns 25,000 Units/500) 25,000 units in 500 mls @ 20 mls/hr IVPB TITR [facility]; 1,000 UNITS/HR PRN Reason: Protocol Last Admin: 08/25/17 06:14 Dose: 1,100 units/hr, 22 mls/hr Insulin Aspart (Novolog Vial Sliding Scale -) 1 vial SQ ACHS [facility] PRN Reason: Protocol Last Admin: 08/25/17 12:34 Dose: 4 unit Insulin Detemir (Levemir Vial) 10 units SQ AM [facility] Last Admin: 08/25/17 06:13 Dose: 10 unit Lisinopril (Prinivil) 5 mg PO DAILY [facility] Last Admin: 08/25/17 10:56 Dose: 5 mg Metformin HCl (Glucophage Xr -) 500 mg PO DAILY@0700 [facility] Metoprolol Succinate (Toprol Xl -) 100 mg PO BID [facility] Last Admin: 08/25/17 10:56 Dose: 100 mg Warfarin Sodium (Coumadin -) 10 mg PO DAILY@1800 [facility] Constitutional: Yes: No Distress Eyes: Yes: WNL, Conjunctiva Clear, EOM Intact, PERRL HENT: Yes: WNL, Atraumatic, Normocephalic, Nasal Congestion Neck: Yes: WNL, Supple, Trachea Midline. No: Lymphadenopathy, Rigid, Tenderness Cardiovascular: Yes: Irregular, Tachycardia, JVD, Murmur. No: S3, S4 Respiratory: Yes: Clear, No: Accessory Muscle Use, Rales, SOB, Tachypnea, Wheezes Gastrointestinal: Yes: WNL, Normal Bowel Sounds, Soft, Abdomen, Obese. No: Distention, Tenderness ...Rectal Exam: Yes: Deferred Renal/: Yes: WNL. No: Menses Present, Breast(s): Yes: WNL Musculoskeletal: Yes: WNL Edema: Yes Edema: LLE: 2+, RLE: 2+ Peripheral Pulses WNL: Yes Integumentary: Yes: WNL Neurological: Yes: WNL, Alert, Oriented. No: Lethargy, Tremors, Weakness ...Motor Strength: WNL Psychiatric: Yes: WNL, Alert, Oriented Labs: Laboratory Results - last 24 hr 08/24/17 08/24/17 08/25/17 17:31 20:17 05:57 WBC RBC Hgb Hct MCV MCH MCHC RDW Plt Count MPV Neutrophils % Lymphocytes % Monocytes % Eosinophils % Basophils % PT with INR INR PTT (Actin FS) Sodium Potassium Chloride Carbon Dioxide Anion Gap BUN Creatinine Creat Clearance w eGFR POC Glucometer 224 191 167 Random Glucose Calcium Total Bilirubin AST ALT Alkaline Phosphatase Total Protein Albumin 08/25/17 08/25/17 08/25/17 06:30 06:30 06:30 WBC 4.0 RBC 4.45 Hgb 12.8 Hct 39.8 MCV 89.4 MCH 28.7 MCHC 32.1 RDW 14.2 Plt Count 193 MPV 11.5 H Neutrophils % 43.8 Lymphocytes % 38.4 Monocytes % 12.0 H Eosinophils % 4.1 Basophils % 1.7 PT with INR INR PTT (Actin FS) 83.0 H Sodium 139 Potassium 3.7 Chloride 100 Carbon Dioxide 31 Anion Gap 8 BUN 13 Creatinine 0.7 Creat Clearance w eGFR > 60 POC Glucometer Random Glucose 164 H Calcium 8.8 Total Bilirubin 0.8 D AST 16 ALT 32 Alkaline Phosphatase 86 Total Protein 6.4 Albumin 3.1 L 08/25/17 08/25/17 06:30 11:58 WBC RBC Hgb Hct MCV MCH MCHC RDW Plt Count MPV Neutrophils % Lymphocytes % Monocytes % Eosinophils % Basophils % PT with INR 17.60 H INR 1.56 H PTT (Actin FS) Sodium Potassium Chloride Carbon Dioxide Anion Gap BUN Creatinine Creat Clearance w eGFR POC Glucometer 216 Random Glucose Calcium Total Bilirubin AST ALT Alkaline Phosphatase Total Protein Albumin Problem List - Problems (1) Afib / Flutter Code(s): I48.91 - UNSPECIFIED ATRIAL FIBRILLATION Qualifiers: Atrial fibrillation type: unspecified Qualified Code(s): I48.91 - Unspecified atrial fibrillation (2) SOB (shortness of breath) Code(s): R06.02 - SHORTNESS OF BREATH (3) R/O OSAS (4) ? Asthma Assessment/Plan Cardiac meds as ordered AC Glycemic control O2 as needed Will need a formal sleep workup after discharge Dr Michaud
[2017-08-25] MEDS ORDERED: FUROSEMIDE 40 MG/4 ML INJECTABLE VIAL IVPUSH ONE (16:00)
[2017-08-25] MEDS: ATORVASTATIN CA 10 MG TABLET (FP) PO SCH (22:22)
[2017-08-26] MEDS: FUROSEMIDE 40 MG/4 ML INJECTABLE VIAL IVPUSH SCH ×2 (06:48→13:57)
[2017-08-26] MEDS: INSULIN SLIDING SCALE (NOVOLOG) 1 VIAL SQ SCH ×4 (06:49→22:10)
[2017-08-26] MEDS: INSULIN DETEMIR 100 UNITS/ML MDV SQ SCH (06:49)
[2017-08-26 07:38] LABS: BASO # 0.1 # (0.1-1); BASO % 1.9 % (0-2.0); EOS # 0.2 # (0-4.5); EOS % 4.8 % (0-4.5); LYMPH # 1.5 (8-40); MCH 28.9 pg (25.7-33.7); MCHC 32.1 g/dl (32.0-36.0); MEAN PLT VOLUME 10.9 fl (7.5-11.1); MONO # 0.4 # (3.8-10.2); NEUT # 1.5 # (42.8-82.8); NEUT % 40.9 % (42.8-82.8); PLATELET COUNT 173 K/MM3 (134-434); RDW 14.4 % (11.6-15.6); WHITE BLOOD COUNT 3.6 K/mm3 (4.0-10.0)
[2017-08-26 07:54] LABS: INR 1.56 (0.82-1.09); PROTHROMBIN TIME (PATIENT) 17.6 SEC (9.98-11.88)
[2017-08-26] MEDS ORDERED: PT OWN MED DRAWER 7, Y5N ONE (08:02)
[2017-08-26] MEDS ORDERED: INSULIN DETEMIR 100 UNITS/ML MDV SQ ONE (08:03)
[2017-08-26 08:06] LABS: ACTIVATED PTT 88.6 SECONDS (26.9-34.4)
[2017-08-26 08:32] LABS: ALBUMIN 2.8 g/dl (3.4-5.0); ANION GAP 6 (8-16); CALCIUM 8.2 mg/dL (8.5-10.1); CO2 33 mmol/L (21-32); GLUCOSE,RANDOM 135 mg/dL (74-106)
[2017-08-26 08:36] LABS: ALK PHOS 83 U/L (45-117); BILIRUBIN,TOTAL 0.8 mg/dL (0.2-1.0); CREATININE 0.8 mg/dL (0.55-1.02); SGOT/AST 19 U/L (15-37); SGPT/ALT 34 U/L (12-78); TOT PROT 6.1 g/dl (6.4-8.2)
[2017-08-26] MEDS: METOPROLOL SUCCINATE 100 MG TAB.SR.24H (FP) PO SCH ×2 (09:40→22:09)
[2017-08-26] MEDS: LISINOPRIL 5 MG TABLET (FP) PO SCH (09:40)
[2017-08-26] MEDS: HEPARIN SOD,PORK IN 0.45% NACL 25,000 UNITS/500 ML INFUS.BAG IVPB SCH (10:22)
--- NOTE | 2017-08-26 11:20 | PN ---
Progress Note (short form) - Note Progress Note: Chief Complaint: cough History of Present Illness: cough improved. LE edema improving but still remains. ambulating with less sx' s. no cp, palps, dizziness, sob. Current Medications Generic Name Dose Route Start Last Admin Trade Name Freq PRN Reason Stop Dose Admin Atorvastatin Calcium 10 mg 08/20/17 22:00 08/25/17 22:22 Lipitor - PO 10 mg HS [facility] Administration Furosemide 40 mg 08/26/17 06:00 08/26/17 06:48 Lasix Injection - IVPUSH 40 mg BID@0600,1400 [facility] Administration Heparin Sodium (Porcine) 1,000 unit 08/19/17 23:32 08/20/17 21:13 Heparin - IVPUSH 1,000 unit PRN PRN Administration Heparin Heparin Sodium (Porcine) 5,000 unit 08/19/17 23:32 Heparin - IVPUSH PRN PRN Heparin HEPARIN SOD,PORK IN 0.45% NACL 25,000 units in 500 mls @ 20 mls/hr 08/19/17 23 :32 08/26/17 10:22 Heparin-1/2ns 25,000 Units/500 IVPB 1,000 units/hr TITR [facility] 20 mls/hr Protocol Administration 1,000 UNITS/HR Insulin Aspart 1 vial 08/20/17 07:00 08/26/17 06:49 Novolog Vial Sliding Scale - SQ Not Given ACHS [facility] Protocol Insulin Detemir 10 units 08/20/17 07:00 08/26/17 06:49 Levemir Vial SQ 10 unit AM [facility] Administration Lisinopril 5 mg 08/20/17 10:00 08/26/17 09:40 Prinivil PO 5 mg DAILY [facility] Administration Metformin HCl 500 mg 08/26/17 07:00 08/26/17 06:48 Glucophage Xr - PO Not Given DAILY@0700 [facility] Metoprolol Succinate 100 mg 08/22/17 22:00 08/26/17 09:40 Toprol Xl - PO 100 mg BID [facility] Administration Warfarin Sodium 10 mg 08/25/17 10:03 08/25/17 18:18 Coumadin - PO 10 mg DAILY@1800 [facility] Administration - Objective Vital Signs: Vital Signs Period Temp Pulse Resp BP Sys/Soriano Pulse Ox Last 24 Hr 97.8 F-98.7 F 60-82 16-22 95-133/51-73 97-97 Constitutional: Yes: No Distress, Calm, Obese Eyes: No: Sclera Icterus HENT: No: Nasal Congestion Cardiovascular: Yes: Pulse Irregular, JVD, S1, S2, Other (PMI non diplaced). No : Gallop, Murmur Respiratory: Yes: CTA Bilaterally. No: Accessory Muscle Use, Rales, Wheezes Gastrointestinal: Yes: Normal Bowel Sounds, Soft. No: Tenderness Extremities: No: Cold, Cyanosis Edema: trace - 1+ Integumentary: No: Jaundice Neurological: Yes: Alert, Oriented (x3) Psychiatric: No: Agitated Labs: CBC, BMP 08/26/17 06:00 08/26/17 06:00 - ....Imaging EKG: Other (tele: AFL, overall rate controlled) stress test 08/2017: no sx's. no ekg changes. cannot r/o moderate area of mildly intense inf wall ischemia although there may be some element of diaphragmatic attenuation artifact. small area of mild anteroseptal ischemia. mild-mod LVE. EF 40% with mild hk of inf wall. Echo 08/21: mild LVE, severely decr LVEF (global). mild LAE. ecc MR, at least moderate (may be underestimated). 0.7cm mobile density on LV side of AV may represent small strand or fibroelastoma, veg cannot be excluded. + pleural effusion a/p: 56 f no known pmhx (does not follow with doctor) here with sob, cough, wheezing. new aflutter: -metoprolol started here, dose last uptitrated to 100 bid on 08/22 for rapid HRs. Tolerating - no asthmatic sx's. -? underlying tachy-CMP here--aggressive HR control efforts. -chadsvasc is 4, cont AC -cont tele -can eventually consider [facility]ER/DCCV, however pt would be at hi risk for embolic event if she does not comply with 4 weeks of AC post...given her prior lack of MD f/u and currently no medical insurance/rx drug coverage, she is high risk for AC med non-adherence. Hence, will cont rate control strategy for now, and defer DCCV if HR can be otherwise controlled, until she follows up in office and shows compliance with meds new acute chf: -echo with severe, global LV dysfunction, at least moderate MR (eccentric). BNP 1400 -possible tachy-CMP, vs hypertensive (bp high here, no f/u in long time), vs ? obesity/DIONICIO related, less likely sec to primary MR -should have reassessment of MR severity once better diuresed and adequately HR controlled as outpt, to rule out primary severe MR causing LV dysfunction (in which case MV surgery may be indicated) -no isch ecg, ce's neg x2, no angina sx suspected. -cont metopr (also for AFib hr control), AMARILIS as doing -08/24: cont lasix 40 iv qd, monitor daily bmp, wts -08/25: cr stable, still with overload. will increase to lasix 40 iv bid from qd -08/26: wt down, cr stable, cont iv lasix 40 bid -No high risk findings on stress test and weight/attenuation artifact --> higher probability of false positive. Given that clinically patient at risk for tachymyopathy and currently we do not know how well she can be adherent to medications/follow up I recommend repeating echo in a few months to look for improvement. If at that point, she has anginal symptoms or there no improvement in cardiac function, then would consider further invasive ischemic evaluation at that time. Con't medical management of presumed CAD with atorvastatin. No ASA, on AC. AV density: -findings c/w fibrous strand vs fibroelastoma > vegetation -no fever or leucocytosis, no stigmata of IE-- BCx ngtd. htn: -new diagnosis here -bp better controlled with b-b and AMARILIS regimen for LV dysfunction
[2017-08-26 11:45] LABS: INR 1.58 (0.82-1.09); PROTHROMBIN TIME (PATIENT) 17.8 SEC (9.98-11.88)
[2017-08-26] MEDS ORDERED: WARFARIN NA 10 MG TABLET (FP) PO SCH (13:43)
--- NOTE | 2017-08-26 13:55 | MSN ---
Progress Note (SOAP) - Subjective History of Present Illness: Patient was examined awake, sitting upright in no acute distress. Says she slept well, Cough overnight continues to improve. Denies any urinary sx's. Denies any fevers, chills, nausea, vomiting, chest pain, SOB, headache. No acute events over last night as per nursing. - Current Medications Current Medications: Active Medications Atorvastatin Calcium (Lipitor -) 10 mg PO HS [facility] Last Admin: 08/25/17 22:22 Dose: 10 mg Furosemide (Lasix Injection -) 40 mg IVPUSH BID@0600,1400 [facility] Last Admin: 08/26/17 06:48 Dose: 40 mg Heparin Sodium (Porcine) (Heparin -) 1,000 unit IVPUSH PRN PRN PRN Reason: Heparin Last Admin: 08/20/17 21:13 Dose: 1,000 unit Heparin Sodium (Porcine) (Heparin -) 5,000 unit IVPUSH PRN PRN PRN Reason: Heparin HEPARIN SOD,PORK IN 0.45% NACL (Heparin-1/2ns 25,000 Units/500) 25,000 units in 500 mls @ 20 mls/hr IVPB TITR [facility]; 1,000 UNITS/HR PRN Reason: Protocol Last Admin: 08/26/17 10:22 Dose: 1,000 units/hr, 20 mls/hr Insulin Aspart (Novolog Vial Sliding Scale -) 1 vial SQ ACHS [facility] PRN Reason: Protocol Last Admin: 08/26/17 12:53 Dose: Not Given Insulin Detemir (Levemir Vial) 10 units SQ AM [facility] Last Admin: 08/26/17 06:49 Dose: 10 unit Lisinopril (Prinivil) 5 mg PO DAILY [facility] Last Admin: 08/26/17 09:40 Dose: 5 mg Metformin HCl (Glucophage Xr -) 500 mg PO DAILY@0700 [facility] Last Admin: 08/26/17 06:48 Dose: Not Given Metoprolol Succinate (Toprol Xl -) 100 mg PO BID [facility] Last Admin: 08/26/17 09:40 Dose: 100 mg Warfarin Sodium (Coumadin -) 12.5 mg PO DAILY@1800 [facility] - Objective Vital Signs: Vital Signs Temperature 98 F 08/26/17 09:00 Pulse Rate 80 08/26/17 09:00 Respiratory Rate 20 08/26/17 09:00 Blood Pressure 130/73 08/26/17 09:00 O2 Sat by Pulse Oximetry (%) 97 08/26/17 09:00 Constitutional: Yes: No Distress, Calm, Obese Cardiovascular: Yes: Regular Rate and Rhythm, S1, S2 Respiratory: Yes: CTA Bilaterally (Bibasilar rales improved) Gastrointestinal: Yes: Normal Bowel Sounds, Soft, Abdomen, Obese. No: Distention, Tenderness Peripheral Pulses: Left Radial: 2+, Right Radial: 2+, Left Doralis Pedis: 0, Right Dorsalis Pedis: 0 Edema: LLE: 2+, RLE: 2+ Labs Lab Results: Laboratory Results - last 24 hr 08/25/17 08/25/17 08/26/17 17:17 22:18 06:00 WBC RBC Hgb Hct MCV MCH MCHC RDW Plt Count MPV Absolute Neuts (auto) Absolute Lymphs (auto) Absolute Monos (auto) Absolute Eos (auto) Absolute Basos (auto) Neutrophils % Lymphocytes % Monocytes % Eosinophils % Basophils % PT with INR INR PTT (Actin FS) Sodium 140 Potassium 3.9 Chloride 101 Carbon Dioxide 33 H Anion Gap 6 L BUN 12 Creatinine 0.8 Creat Clearance w eGFR > 60 POC Glucometer 148 162 Random Glucose 135 H Calcium 8.2 L Total Bilirubin 0.8 AST 19 ALT 34 Alkaline Phosphatase 83 Total Protein 6.1 L Albumin 2.8 L Stool Occult Blood 08/26/17 08/26/17 08/26/17 06:00 06:00 06:34 WBC 3.6 L RBC 4.25 Hgb 12.3 Hct 38.2 MCV 90.0 MCH 28.9 MCHC 32.1 RDW 14.4 Plt Count 173 MPV 10.9 Absolute Neuts (auto) 1.5 L Absolute Lymphs (auto) 1.5 L Absolute Monos (auto) 0.4 L Absolute Eos (auto) 0.2 Absolute Basos (auto) 0.1 Neutrophils % 40.9 L Lymphocytes % 41.5 H Monocytes % 10.9 H Eosinophils % 4.8 H Basophils % 1.9 PT with INR 17.60 H INR 1.56 H PTT (Actin FS) 88.6 H Sodium Potassium Chloride Carbon Dioxide Anion Gap BUN Creatinine Creat Clearance w eGFR POC Glucometer 129 Random Glucose Calcium Total Bilirubin AST ALT Alkaline Phosphatase Total Protein Albumin Stool Occult Blood 08/26/17 08/26/17 10:15 11:14 WBC RBC Hgb Hct MCV MCH MCHC RDW Plt Count MPV Absolute Neuts (auto) Absolute Lymphs (auto) Absolute Monos (auto) Absolute Eos (auto) Absolute Basos (auto) Neutrophils % Lymphocytes % Monocytes % Eosinophils % Basophils % PT with INR 17.80 H INR 1.58 H PTT (Actin FS) Sodium Potassium Chloride Carbon Dioxide Anion Gap BUN Creatinine Creat Clearance w eGFR POC Glucometer Random Glucose Calcium Total Bilirubin AST ALT Alkaline Phosphatase Total Protein Albumin Stool Occult Blood Negative Intake & Output 08/23/17 08/24/17 08/25/17 08/26/17 23:59 23:59 23:59 23:59 Intake Total 811 538 544 464 Balance 811 538 544 464 Weight 310 lb 8 oz 311 lb 8 oz 308 lb Problem List - Problems (1) Afib Code(s): I48.91 - UNSPECIFIED ATRIAL FIBRILLATION Qualifiers: Atrial fibrillation type: unspecified Qualified Code(s): I48.91 - Unspecified atrial fibrillation (2) SOB (shortness of breath) Code(s): R06.02 - SHORTNESS OF BREATH Assessment/Plan 56 y/o female with no known PMHx who presented with SOB was found to have CHF due to Atrial Flutter and was admitted to the ICU. Patient responded well to Lasix tx; SOB, Rales and Lower extremity improved. Can consider D/C once INR reaches therapeutic levels. 1. New Onset CHF likely due to Atrial Flutter with RVR - Increase Coumadin to 12.5mg PO Daily; Was increased yesterday from 7.5mg to 10mg but the INR this morning was 1.58 - Continue PO Lasix 40mg BID - Continue Metoprolol Succinate 100 mg PO Daily; HR range over the last 24hrs from 62-82. - Continue Heparin gtt in bridging to Coumadin - Continue Lisinopril 5mg PO Daily 2. Type 2 DM - Recent A1c: 12.5%; BG this morning was 135 - Continue Insulin Detemir 10 units SUBQ in AM - ISS 3. HTN - BP was 133/65 this morning; Over last 24hrs, SBP ranged from 95-133, DBP ranged from 51-80 - Continue Metoprolol Succinate 100 mg PO Daily - Continue Lisinopril 5mg PO Daily 4. Hyperlipidemia - Continue Lipitor 10mg PO HS [facility] 5. PPx - Increase Coumadin to 12.5mg PO Daily - No GI PPx 6. FEN - No IV Fluids - Electrolytes WNL - Sodium Restricted diet Dispo: Continue to monitor on Telemetry, Will consider D/C once INR reaches therapeutic levels.
[2017-08-26] MEDS ORDERED: ACETAMINOPHEN 325 MG TABLET (FP) ONE (14:08)
[2017-08-26] MEDS ORDERED: ACETAMINOPHEN 650 MG/20.3 ML ORAL SOLUTION (CUPS) PO PRN (14:38)
--- NOTE | 2017-08-26 16:11 | PN ---
Physical Exam: SUBJECTIVE: Patient seen and examined. No acute events overnight. Breathing has improved, and LE edema has slightly improved. No complaints. OBJECTIVE: Vital Signs Period Temp Pulse Resp BP Sys/Soriano Pulse Ox Last 24 Hr 97.8 F-98.2 F 60-82 16-20 95-133/51-73 97-97 GENERAL: middle aged female, obese, awake, AAOx3 in NAD HEENT: NC, AT, EOMI Neck: no JVD LUNGS: CTAB HEART: irregularly irregular rhythm, no murmurs ABDOMEN: obese, soft, nontender, nondistended, normoactive bowel sounds, no guarding, no rebound, no hepatosplenomegaly, no masses. EXTREMITIES: 2+ LE edema, slightly improved from yesterday NEUROLOGICAL: AAOx3 Laboratory Results - last 24 hr 08/25/17 08/25/17 08/26/17 17:17 22:18 06:00 WBC RBC Hgb Hct MCV MCH MCHC RDW Plt Count MPV Absolute Neuts (auto) Absolute Lymphs (auto) Absolute Monos (auto) Absolute Eos (auto) Absolute Basos (auto) Neutrophils % Lymphocytes % Monocytes % Eosinophils % Basophils % PT with INR INR PTT (Actin FS) Sodium 140 Potassium 3.9 Chloride 101 Carbon Dioxide 33 H Anion Gap 6 L BUN 12 Creatinine 0.8 Creat Clearance w eGFR > 60 POC Glucometer 148 162 Random Glucose 135 H Calcium 8.2 L Total Bilirubin 0.8 AST 19 ALT 34 Alkaline Phosphatase 83 Total Protein 6.1 L Albumin 2.8 L Stool Occult Blood 08/26/17 08/26/17 08/26/17 06:00 06:00 06:34 WBC 3.6 L RBC 4.25 Hgb 12.3 Hct 38.2 MCV 90.0 MCH 28.9 MCHC 32.1 RDW 14.4 Plt Count 173 MPV 10.9 Absolute Neuts (auto) 1.5 L Absolute Lymphs (auto) 1.5 L Absolute Monos (auto) 0.4 L Absolute Eos (auto) 0.2 Absolute Basos (auto) 0.1 Neutrophils % 40.9 L Lymphocytes % 41.5 H Monocytes % 10.9 H Eosinophils % 4.8 H Basophils % 1.9 PT with INR 17.60 H INR 1.56 H PTT (Actin FS) 88.6 H Sodium Potassium Chloride Carbon Dioxide Anion Gap BUN Creatinine Creat Clearance w eGFR POC Glucometer 129 Random Glucose Calcium Total Bilirubin AST ALT Alkaline Phosphatase Total Protein Albumin Stool Occult Blood 08/26/17 08/26/17 10:15 11:14 WBC RBC Hgb Hct MCV MCH MCHC RDW Plt Count MPV Absolute Neuts (auto) Absolute Lymphs (auto) Absolute Monos (auto) Absolute Eos (auto) Absolute Basos (auto) Neutrophils % Lymphocytes % Monocytes % Eosinophils % Basophils % PT with INR 17.80 H INR 1.58 H PTT (Actin FS) Sodium Potassium Chloride Carbon Dioxide Anion Gap BUN Creatinine Creat Clearance w eGFR POC Glucometer Random Glucose Calcium Total Bilirubin AST ALT Alkaline Phosphatase Total Protein Albumin Stool Occult Blood Negative Active Medications Generic Name Dose Route Start Last Admin Trade Name Freq PRN Reason Stop Dose Admin Acetaminophen 650 mg 08/26/17 14:38 08/26/17 14:53 Tylenol Oral Solution - PO 650 mg Q4H PRN Administration FEVER OR PAIN Atorvastatin Calcium 10 mg 08/20/17 22:00 08/25/17 22:22 Lipitor - PO 10 mg HS [facility] Administration Furosemide 40 mg 08/26/17 06:00 08/26/17 13:57 Lasix Injection - IVPUSH 40 mg BID@0600,1400 [facility] Administration Heparin Sodium (Porcine) 1,000 unit 08/19/17 23:32 08/20/17 21:13 Heparin - IVPUSH 1,000 unit PRN PRN Administration Heparin Heparin Sodium (Porcine) 5,000 unit 08/19/17 23:32 Heparin - IVPUSH PRN PRN Heparin HEPARIN SOD,PORK IN 0.45% NACL 25,000 units in 500 mls @ 20 mls/hr 08/19/17 23 :32 08/26/17 10:22 Heparin-1/2ns 25,000 Units/500 IVPB 1,000 units/hr TITR [facility] 20 mls/hr Protocol Administration 1,000 UNITS/HR Insulin Aspart 1 vial 08/20/17 07:00 08/26/17 12:53 Novolog Vial Sliding Scale - SQ Not Given ACHS [facility] Protocol Insulin Detemir 10 units 08/20/17 07:00 08/26/17 06:49 Levemir Vial SQ 10 unit AM [facility] Administration Lisinopril 5 mg 08/20/17 10:00 08/26/17 09:40 Prinivil PO 5 mg DAILY [facility] Administration Metformin HCl 500 mg 08/26/17 07:00 08/26/17 06:48 Glucophage Xr - PO Not Given DAILY@0700 [facility] Metoprolol Succinate 100 mg 08/22/17 22:00 08/26/17 09:40 Toprol Xl - PO 100 mg BID [facility] Administration Warfarin Sodium 10 mg/ 12.5 mg 08/26/17 18:00 Warfarin Sodium 2.5 mg PO DAILY@1800 [facility] ASSESSMENT/PLAN: 56F w/ no significant PMH who presented with SOB, and was found to have A- flutter with RVR and resultant CHF. CHF component has resolved. She is currently being bridged to coumadin. #A-flutter with RVR - HR between 60-80 - continue toprol 100 BID - INR 1.58 up from 1.56. increase coumadin to 12.5mg - cards recs appreciated. YENNIFER and cardioversion too high risk for pt now, might consider later on to check MR - Mobile structure on AV is unlikely vegetation. Will follow Bcx, currently showing no growth x 24 hours #New onset systolic CHF - volume status has improved. No more rales, and she denies SOB. LE edema improving - IV lasix 40mg - cont low dose lisinopril - pharm MPI: no ischemia, moderately dilated LV, reduced LVEF of 40%, mild hypokinesis of inferior wall -per cards, should have reassessment of MR severity once better diuresed and adequately HR controlled as outpt, to rule out primary severe MR causing LV dysfunction (in which case MV surgery may be indicated) #New diagnosis of DMII - A1c of 12 - cont levemir and SSI - BGM #HTN - continue Lisinopril - continue toprol #Hyperlipidemia - continue low dose lipitor #cough - continue guaifenesin/dextromethorphan #FEN/ppx -no fluids -electrolytes wnl -chol/fat/sodium restricted diet -no GI ppx -heparin to coumadin bridge #Dispo -pending therapeutic INR. Will need coumadin clinic appointment. -Roni Roy MD PGY1 Visit type - Emergency Visit Emergency Visit: Yes ED Registration Date: 08/18/17 Care time: The patient presented to the Emergency Department on the above date and was hospitalized for further evaluation of their emergent condition. - New Patient This patient is new to me today: No - Critical Care Critical Care patient: No
--- NOTE | 2017-08-26 16:40 | PN ---
Teaching Attending Note Name of Resident: Roni Roy ATTENDING PHYSICIAN STATEMENT I saw and evaluated the patient. I reviewed the resident's note and discussed the case with the resident. I agree with the resident's findings and plan as documented. SUBJECTIVE: Patient is comfortable with no acute distress. No shortness of breath. OBJECTIVE: Vital Signs Temperature 98.2 F 08/26/17 14:07 Pulse Rate 82 08/26/17 14:07 Respiratory Rate 20 08/26/17 14:07 Blood Pressure 113/60 08/26/17 14:07 O2 Sat by Pulse Oximetry (%) 97 08/26/17 09:00 CBCD WBC 3.6 K/mm3 (4.0-10.0) L 08/26/17 06:00 RBC 4.25 M/mm3 (3.60-5.2) 08/26/17 06:00 Hgb 12.3 GM/dL (10.7-15.3) 08/26/17 06:00 Hct 38.2 % (32.4-45.2) 08/26/17 06:00 MCV 90.0 fl (80-96) 08/26/17 06:00 MCHC 32.1 g/dl (32.0-36.0) 08/26/17 06:00 RDW 14.4 % (11.6-15.6) 08/26/17 06:00 Plt Count 173 K/MM3 (134-434) 08/26/17 06:00 MPV 10.9 fl (7.5-11.1) 08/26/17 06:00 CMP Sodium 140 mmol/L (136-145) 08/26/17 06:00 Potassium 3.9 mmol/L (3.5-5.1) 08/26/17 06:00 Chloride 101 mmol/L (98-107) 08/26/17 06:00 Carbon Dioxide 33 mmol/L (21-32) H 08/26/17 06:00 Anion Gap 6 (8-16) L 08/26/17 06:00 BUN 12 mg/dL (7-18) 08/26/17 06:00 Creatinine 0.8 mg/dL (0.55-1.02) 08/26/17 06:00 Creat Clearance w eGFR > 60 (>60) 08/26/17 06:00 Random Glucose 135 mg/dL (74-106) H 08/26/17 06:00 Calcium 8.2 mg/dL (8.5-10.1) L 08/26/17 06:00 Total Bilirubin 0.8 mg/dL (0.2-1.0) 08/26/17 06:00 AST 19 U/L (15-37) 08/26/17 06:00 ALT 34 U/L (12-78) 08/26/17 06:00 Alkaline Phosphatase 83 U/L (45-117) 08/26/17 06:00 Total Protein 6.1 g/dl (6.4-8.2) L 08/26/17 06:00 Albumin 2.8 g/dl (3.4-5.0) L 08/26/17 06:00 CARDIAC ENZYMES Creatine Kinase 57 IU/L (26-192) 08/19/17 05:55 Troponin I 0.03 ng/ml (0.00-0.05) 08/19/17 05:55 Current Medications Generic Name Dose Route Start Last Admin Trade Name Hankq PRN Reason Stop Dose Admin Acetaminophen 650 mg 08/26/17 14:38 08/26/17 14:53 Tylenol Oral Solution - PO 650 mg Q4H PRN Administration FEVER OR PAIN Atorvastatin Calcium 10 mg 08/20/17 22:00 08/25/17 22:22 Lipitor - PO 10 mg HS [facility] Administration Furosemide 40 mg 08/26/17 06:00 08/26/17 13:57 Lasix Injection - IVPUSH 40 mg BID@0600,1400 [facility] Administration Heparin Sodium (Porcine) 1,000 unit 08/19/17 23:32 08/20/17 21:13 Heparin - IVPUSH 1,000 unit PRN PRN Administration Heparin Heparin Sodium (Porcine) 5,000 unit 08/19/17 23:32 Heparin - IVPUSH PRN PRN Heparin HEPARIN SOD,PORK IN 0.45% NACL 25,000 units in 500 mls @ 20 mls/hr 08/19/17 23 :32 08/26/17 10:22 Heparin-1/2ns 25,000 Units/500 IVPB 1,000 units/hr TITR [facility] 20 mls/hr Protocol Administration 1,000 UNITS/HR Insulin Aspart 1 vial 08/20/17 07:00 12/22/17 12:53 Novolog Vial Sliding Scale - SQ Not Given ACHS [facility] Protocol Insulin Detemir 10 units 08/20/17 07:00 08/26/17 06:49 Levemir Vial SQ 10 unit AM [facility] Administration Lisinopril 5 mg 08/20/17 10:00 08/26/17 09:40 Prinivil PO 5 mg DAILY [facility] Administration Metformin HCl 500 mg 08/26/17 07:00 08/26/17 06:48 Glucophage Xr - PO Not Given DAILY@0700 [facility] Metoprolol Succinate 100 mg 08/22/17 22:00 08/26/17 09:40 Toprol Xl - PO 100 mg BID [facility] Administration Warfarin Sodium 10 mg/ 12.5 mg 08/26/17 18:00 Warfarin Sodium 2.5 mg PO DAILY@1800 [facility] Home Medications Medication Instructions Recorded NK [No Known Home Medication] 08/19/17 Microbiology 08/22/17 06:10 Blood - Peripheral Venous Blood Culture - Preliminary NO GROWTH OBTAINED AFTER 96 HOURS, INCUBATION TO CONTINUE FOR 1 DAYS. 08/22/17 06:15 Blood - Peripheral Venous Blood Culture - Preliminary NO GROWTH OBTAINED AFTER 96 HOURS, INCUBATION TO CONTINUE FOR 1 DAYS. PE: Heart: S1S2 positive, afib with rate controlled. rest of PE per resident's note ASSESSMENT AND PLAN: 56 y/o lady with no recent medical care , and no known PMH who presented with SOB , and was found to have A flutter with RVR and resultant CHF # A Fib rate is controlled now on coumadin with non therapeutic INR continue Heparin and coumadin increased the dose to 12.5 mg tonight with daily PT/INR continue toprol XL 100 BID, Mobile structure on AV , is unlikely vegetation. further w/u YENNIFER as an outpatient as per . # New onset systolic CHF. 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 decision about cath per card. # New diagnosis of T2DM started on metformin continue to monitor blood sugar # HTN: Lisinopril , toprol , Lasix # Hyperlipidemia: low dose lipitor DVT Px: on coumadin/heparin drip, once inr is therapeutic , patient can be discharge home.
[2017-08-26] MEDS ORDERED: WARFARIN NA 2.5 MG TABLET (FP) ONE (16:57)
[2017-08-26] MEDS ORDERED: WARFARIN NA 10 MG TABLET (FP) ONE (16:57)
[2017-08-26] MEDS: WARFARIN NA 10 MG, WARFARIN NA 2.5 MG PO SCH (17:02)
[2017-08-26] MEDS: ATORVASTATIN CA 10 MG TABLET (FP) PO SCH (22:10)
[2017-08-27] MEDS: INSULIN SLIDING SCALE (NOVOLOG) 1 VIAL SQ SCH ×4 (06:18→21:17)
[2017-08-27] MEDS: HEPARIN SOD,PORK IN 0.45% NACL 25,000 UNITS/500 ML INFUS.BAG IVPB SCH ×3 (06:18→23:35)
[2017-08-27] MEDS: FUROSEMIDE 40 MG/4 ML INJECTABLE VIAL IVPUSH SCH ×2 (06:24→16:53)
[2017-08-27] MEDS: INSULIN DETEMIR 100 UNITS/ML MDV SQ SCH (06:25)
[2017-08-27] MEDS ORDERED: INSULIN (NOVOLOG) ASPART 100 UNITS/ML 10ML VIAL ONE (06:51)
[2017-08-27 08:15] LABS: ANION GAP 8 (8-16); CALCIUM 8.8 mg/dL (8.5-10.1); CO2 29 mmol/L (21-32); CREATININE 0.8 mg/dL (0.55-1.02); GLUCOSE,RANDOM 137 mg/dL (74-106)
[2017-08-27 08:46] LABS: INR 1.73 (0.82-1.09); PROTHROMBIN TIME (PATIENT) 19.6 SEC (9.98-11.88)
[2017-08-27 08:49] LABS: ACTIVATED PTT 55.6 SECONDS (26.9-34.4)
[2017-08-27] MEDS: LISINOPRIL 5 MG TABLET (FP) PO SCH (10:33)
[2017-08-27] MEDS: METOPROLOL SUCCINATE 100 MG TAB.SR.24H (FP) PO SCH ×2 (10:33→21:13)
--- NOTE | 2017-08-27 10:51 | PN ---
Progress Note, Physician Chief Complaint: afib, chf History of Present Illness: walking halls with no sob. no orthopnea. no cp, palpitations no etoh - Current Medication List Current Medications: Active Medications Acetaminophen (Tylenol Oral Solution -) 650 mg PO Q4H PRN PRN Reason: FEVER OR PAIN Last Admin: 08/26/17 14:53 Dose: 650 mg Atorvastatin Calcium (Lipitor -) 10 mg PO HS [facility] Last Admin: 08/26/17 22:10 Dose: 10 mg Furosemide (Lasix Injection -) 40 mg IVPUSH BID@0600,1400 [facility] Last Admin: 08/27/17 06:24 Dose: 40 mg Heparin Sodium (Porcine) (Heparin -) 1,000 unit IVPUSH PRN PRN PRN Reason: Heparin Last Admin: 08/20/17 21:13 Dose: 1,000 unit Heparin Sodium (Porcine) (Heparin -) 5,000 unit IVPUSH PRN PRN PRN Reason: Heparin HEPARIN SOD,PORK IN 0.45% NACL (Heparin-1/2ns 25,000 Units/500) 25,000 units in 500 mls @ 20 mls/hr IVPB TITR [facility]; 1,000 UNITS/HR PRN Reason: Protocol Last Admin: 08/27/17 06:18 Dose: Not Given Insulin Aspart (Novolog Vial Sliding Scale -) 1 vial SQ ACHS [facility] PRN Reason: Protocol Last Admin: 08/27/17 06:18 Dose: Not Given Insulin Detemir (Levemir Vial) 10 units SQ AM [facility] Last Admin: 08/27/17 06:25 Dose: 10 unit Lisinopril (Prinivil) 5 mg PO DAILY [facility] Last Admin: 08/27/17 10:33 Dose: 5 mg Metformin HCl (Glucophage Xr -) 500 mg PO DAILY@0700 [facility] Last Admin: 08/27/17 06:18 Dose: Not Given Metoprolol Succinate (Toprol Xl -) 100 mg PO BID [facility] Last Admin: 08/27/17 10:33 Dose: 100 mg Warfarin Sodium 10 mg/ (Warfarin Sodium 2.5 mg) 12.5 mg PO DAILY@1800 [facility] Last Admin: 08/26/17 17:02 Dose: 12.5 mg - Objective Vital Signs: Vital Signs Temperature 97.9 F 08/27/17 06:00 Pulse Rate 63 08/27/17 06:00 Respiratory Rate 18 08/27/17 06:00 Blood Pressure 115/65 08/27/17 06:00 O2 Sat by Pulse Oximetry (%) 97 08/26/17 21:00 Constitutional: Yes: Obese Eyes: No: Sclera Icterus HENT: No: Nasal Congestion Cardiovascular: Yes: Pulse Irregular, JVD, S1, S2, Other (PMI non diplaced). No : Gallop, Murmur Respiratory: Yes: CTA Bilaterally. No: Accessory Muscle Use, Rales, Wheezes Gastrointestinal: Yes: Normal Bowel Sounds, Soft. No: Tenderness Musculoskeletal: Yes: Other (No kyphosis) Extremities: No: Cold Edema: Yes (tr-1+ pretib) Integumentary: No: Jaundice Neurological: Yes: Alert, Oriented (x3) Psychiatric: No: Agitated Labs: CBC, BMP 08/26/17 06:00 08/27/17 06:20 INR, PTT INR 1.73 (0.82-1.09) H 08/27/17 06:20 - ....Imaging EKG: Other (tele: Afib, good HRs) Assessment/Plan MPI 08/2017: no ekg changes. cannot r/o moderate area of mildly intense inf wall ischemia although there may be some element of diaphragmatic attenuation artifact. small area of mild anteroseptal ischemia. mild-mod LVE. EF 40% with mild hk of inf wall. Echo 08/21: mild LVE, severely decr LVEF (global). mild LAE. ecc MR, at least moderate (may be underestimated). 0.7cm mobile density on LV side of AV may represent small strand or fibroelastoma, veg cannot be excluded. + pleural effusion a/p: 56 f no known pmhx (does not follow with doctor) here with sob, cough, wheezing. new aflutter: -metoprolol started here, dose last uptitrated to 100 bid on 08/22 for rapid HRs. Tolerating - no asthmatic sx's. -? underlying tachy-CMP here--aggressive HR control efforts. -chadsvasc is 4, cont AC with UFH to warfarin as disc'd below -d/c tele (HR controlled) -consider YENNIFER/D[facility]V as outpt if remains compliant and willing to f/u and take meds (re: need for good AC compliance if has cardioversion) acute syst chf: -echo with severe, global LV dysfunction, at least moderate MR (eccentric). BNP 1400 -possible tachy-CMP, vs hypertensive (bp high here, no f/u in long time), vs ? obesity/DIONICIO related, less likely sec to primary MR -small area anteroseptal ischemia on MPI (= low risk study), with equivocal inferior wall findings re: soft tissue attenuation vs inferior ischemia per report -should have reassessment of MR severity once better diuresed and adequately HR controlled as outpt, to rule out primary severe MR causing LV dysfunction (in which case MV surgery may be indicated) -no isch ecg, ce's neg x2, no angina sx suspected. -cont metopr (also for AFib hr control), AMARILIS as doing -08/27: receiving lasix 40 iv bid here with gradual wt loss. chf sx's resolved. -remains volume up though well compensated (JVD and slight periph edema) -ok for discharge from [facility] p[facility].--intends to f/u with us -would send home on torsemide 50mg po bid, and will arrange outpt labs with our office 1 week, and f/u with us 2 wks for chf reassessment -continue metoprolol 100 bid, lisinopril 5 qd, atorvastatin 10mg (no ASA, on warfarin) -pt INR 1.7 and rising--given long holiday weekend and will not get next INR until 1/2 (with results available 09/07), would plan to continue warfarin loading as doing and send home on xmas sg to minimize amount of time with unknown upwards INR trend (to avoid overshoot) -deferring invasive ischemia w/u in light of pt high risk for DAPT non- compliance if has PCI (plus likely low risk findings given soft tissue attenuation seen in inferior wall area). 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 htn: -new diagnosis here -bp better controlled with b-b and AMARILIS regimen for LV dysfunction pt again advised by me of importance of outpt cardio f/u and expresses her understanding
[2017-08-27 14:33] LABS: INR 1.73 (0.82-1.09); PROTHROMBIN TIME (PATIENT) 19.6 SEC (9.98-11.88)
[2017-08-27] MEDS ORDERED: WARFARIN NA 10 MG TABLET (FP) ONE (16:57)
[2017-08-27] MEDS ORDERED: WARFARIN NA 2.5 MG TABLET (FP) ONE (16:57)
[2017-08-27] MEDS: WARFARIN NA 10 MG, WARFARIN NA 2.5 MG PO SCH (16:59)
--- NOTE | 2017-08-27 20:41 | PN ---
Physical Exam: SUBJECTIVE: Patient seen and examined Patient is comfortable with no acute distress. no new changes. OBJECTIVE: Vital Signs Temperature 97.7 F 08/27/17 19:50 Pulse Rate 70 08/27/17 19:50 Respiratory Rate 18 08/27/17 19:50 Blood Pressure 113/70 08/27/17 19:50 O2 Sat by Pulse Oximetry (%) 96 08/27/17 10:00 GENERAL: The patient is awake, alert, and fully oriented, in no acute distress. HEAD: Normal with no signs of trauma. EYES: PERRL, extraocular movements intact, sclera anicteric, conjunctiva clear. No ptosis. ENT: Ears normal, nares patent, oropharynx clear without exudates, moist mucous membranes. NECK: Trachea midline, full range of motion, supple. LUNGS: Breath sounds equal, clear to auscultation bilaterally, no wheezes, no crackles, no accessory muscle use. HEART: irregular-irregular , rate controlled , S1, S2 without murmur,no rub or gallop. ABDOMEN: Soft, nontender, nondistended, normoactive bowel sounds, no guarding, no rebound, no hepatosplenomegaly, no masses. EXTREMITIES: 2+ pulses, warm, well-perfused, no edema. NEUROLOGICAL: Cranial nerves II through XII grossly intact. Normal speech, gait not observed. PSYCH: Normal mood, normal affect. SKIN: Warm, dry, normal turgor, no rashes or lesions noted Laboratory Results - last 24 hr 08/26/17 08/26/17 08/27/17 20:15 20:57 06:12 PT with INR INR PTT (Actin FS) 54.4 H D Sodium Potassium Chloride Carbon Dioxide Anion Gap BUN Creatinine POC Glucometer 132 123 Random Glucose Calcium 08/27/17 08/27/17 08/27/17 06:20 06:20 11:37 PT with INR 19.60 H 19.60 H INR 1.73 H 1.73 H PTT (Actin FS) 55.6 H Sodium 139 Potassium 3.9 Chloride 102 Carbon Dioxide 29 Anion Gap 8 BUN 15 D Creatinine 0.8 POC Glucometer Random Glucose 137 H Calcium 8.8 08/27/17 08/27/17 12:04 16:56 PT with INR INR PTT (Actin FS) Sodium Potassium Chloride Carbon Dioxide Anion Gap BUN Creatinine POC Glucometer 178 216 Random Glucose Calcium Active Medications Generic Name Dose Route Start Last Admin Trade Name Hankq PRN Reason Stop Dose Admin Acetaminophen 650 mg 08/26/17 14:38 08/26/17 14:53 Tylenol Oral Solution - PO 650 mg Q4H PRN Administration FEVER OR PAIN Atorvastatin Calcium 10 mg 08/20/17 22:00 08/26/17 22:10 Lipitor - PO 10 mg HS [facility] Administration Furosemide 40 mg 08/26/17 06:00 08/27/17 16:53 Lasix Injection - IVPUSH 40 mg BID@0600,1400 [facility] Administration Heparin Sodium (Porcine) 1,000 unit 08/19/17 23:32 08/20/17 21:13 Heparin - IVPUSH 1,000 unit PRN PRN Administration Heparin Heparin Sodium (Porcine) 5,000 unit 08/19/17 23:32 Heparin - IVPUSH PRN PRN Heparin HEPARIN SOD,PORK IN 0.45% NACL 25,000 units in 500 mls @ 20 mls/hr 08/19/17 23 :32 08/27/17 06:18 Heparin-1/2ns 25,000 Units/500 IVPB Not Given TITR [facility] Protocol 1,000 UNITS/HR Insulin Aspart 1 vial 08/20/17 07:00 08/27/17 16:58 Novolog Vial Sliding Scale - SQ 4 unit ACHS [facility] Administration Protocol Insulin Detemir 10 units 08/20/17 07:00 08/27/17 06:25 Levemir Vial SQ 10 unit AM [facility] Administration Lisinopril 5 mg 08/20/17 10:00 08/27/17 10:33 Prinivil PO 5 mg DAILY [facility] Administration Metformin HCl 500 mg 08/26/17 07:00 08/27/17 06:18 Glucophage Xr - PO Not Given DAILY@0700 [facility] Metoprolol Succinate 100 mg 08/22/17 22:00 08/27/17 10:33 Toprol Xl - PO 100 mg BID [facility] Administration Warfarin Sodium 10 mg/ 12.5 mg 08/26/17 18:00 08/27/17 16:59 Warfarin Sodium 2.5 mg PO 12.5 mg DAILY@1800 [facility] Administration Home Medications Medication Instructions Recorded NK [No Known Home Medication] 08/19/17 ASSESSMENT/PLAN: 56 y/o lady with no recent medical care , and no known PMH who presented with SOB , and was found to have A flutter with RVR and resultant CHF # A Fib rate is controlled now on coumadin with non therapeutic INR 1.73 today on coumadin 10mg continue Heparin and coumadin, will increase the dose to 12.5 mg tonight with daily PT/INR continue toprol XL 100 BID, Mobile structure on AV , is unlikely vegetation. further w/u YENNIFER as an outpatient as per . # New onset systolic CHF. 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 decision about cath per cardiology. # New diagnosis of T2DM started on metformin continue to monitor blood sugar # HTN: Lisinopril , toprol , Lasix # Hyperlipidemia: low dose lipitor DVT Px: on coumadin/heparin drip, once inr is therapeutic today is 1.75 , patient can be discharge home. Visit type - Emergency Visit Emergency Visit: Yes ED Registration Date: 08/18/17 Care time: The patient presented to the Emergency Department on the above date and was hospitalized for further evaluation of their emergent condition. - New Patient This patient is new to me today: No - Critical Care Critical Care patient: No
[2017-08-27] MEDS: ATORVASTATIN CA 10 MG TABLET (FP) PO SCH (21:13)
[2017-08-28] MEDS: FUROSEMIDE 40 MG/4 ML INJECTABLE VIAL IVPUSH SCH (06:26)
[2017-08-28] MEDS: INSULIN DETEMIR 100 UNITS/ML MDV SQ SCH (06:27)
[2017-08-28] MEDS: INSULIN SLIDING SCALE (NOVOLOG) 1 VIAL SQ SCH ×3 (06:33→17:09)
--- NOTE | 2017-08-28 09:42 | PN ---
Progress Note, Physician Chief Complaint: chf, afib History of Present Illness: no sob or orthopnea mild leg swelling no cp, palpitations no etoh abuse - Current Medication List Current Medications: Active Medications Acetaminophen (Tylenol Oral Solution -) 650 mg PO Q4H PRN PRN Reason: FEVER OR PAIN Last Admin: 08/26/17 14:53 Dose: 650 mg Atorvastatin Calcium (Lipitor -) 10 mg PO HS COUNTS INCLUDE 234 BEDS AT THE [facility] Last Admin: 08/27/17 21:13 Dose: 10 mg Furosemide (Lasix Injection -) 40 mg IVPUSH BID@0600,1400 COUNTS INCLUDE 234 BEDS AT THE [facility] Last Admin: 08/28/17 06:26 Dose: 40 mg Heparin Sodium (Porcine) (Heparin -) 1,000 unit IVPUSH PRN PRN PRN Reason: Heparin Last Admin: 08/20/17 21:13 Dose: 1,000 unit Heparin Sodium (Porcine) (Heparin -) 5,000 unit IVPUSH PRN PRN PRN Reason: Heparin HEPARIN SOD,PORK IN 0.45% NACL (Heparin-1/2ns 25,000 Units/500) 25,000 units in 500 mls @ 20 mls/hr IVPB TITR [facility]; 1,000 UNITS/HR PRN Reason: Protocol Last Admin: 08/27/17 23:35 Dose: Not Given Insulin Aspart (Novolog Vial Sliding Scale -) 1 vial SQ ACHS COUNTS INCLUDE 234 BEDS AT THE [facility] PRN Reason: Protocol Last Admin: 08/28/17 06:33 Dose: 2 unit Insulin Detemir (Levemir Vial) 10 units SQ AM COUNTS INCLUDE 234 BEDS AT THE [facility] Last Admin: 08/28/17 06:27 Dose: 10 unit Lisinopril (Prinivil) 5 mg PO DAILY COUNTS INCLUDE 234 BEDS AT THE [facility] Last Admin: 08/27/17 10:33 Dose: 5 mg Metformin HCl (Glucophage Xr -) 500 mg PO DAILY@0700 COUNTS INCLUDE 234 BEDS AT THE [facility] Last Admin: 08/28/17 06:26 Dose: 500 mg Metoprolol Succinate (Toprol Xl -) 100 mg PO BID COUNTS INCLUDE 234 BEDS AT THE [facility] Last Admin: 08/27/17 21:13 Dose: 100 mg Warfarin Sodium 10 mg/ (Warfarin Sodium 2.5 mg) 12.5 mg PO DAILY@1800 COUNTS INCLUDE 234 BEDS AT THE [facility] Last Admin: 08/27/17 16:59 Dose: 12.5 mg - Objective Vital Signs: Vital Signs Temperature 97.6 F 08/28/17 06:00 Pulse Rate 66 08/28/17 06:00 Respiratory Rate 18 08/28/17 06:00 Blood Pressure 121/71 08/28/17 06:00 O2 Sat by Pulse Oximetry (%) 96 08/27/17 21:00 Constitutional: Yes: No Distress, Calm, Obese Eyes: No: Sclera Icterus HENT: No: Nasal Congestion Cardiovascular: Yes: Pulse Irregular, S1, S2, Other (PMI non diplaced). No: Gallop, Murmur Respiratory: Yes: CTA Bilaterally. No: Accessory Muscle Use, Rales, Wheezes Gastrointestinal: Yes: Normal Bowel Sounds, Soft. No: Tenderness Musculoskeletal: Yes: Other (No kyphosis) Extremities: No: Cold Edema: Yes (trace pretib) Integumentary: No: Jaundice Neurological: Yes: Alert, Oriented (x3) Psychiatric: No: Agitated Labs: CBC, BMP 08/26/17 06:00 08/27/17 06:20 INR, PTT INR 1.73 (0.82-1.09) H 08/27/17 11:37 - ....Imaging EKG: Other (tele: afib (+/- flutter), HR good) Assessment/Plan MPI 08/2017: no ekg changes. cannot r/o moderate area of mildly intense inf wall ischemia although there may be some element of diaphragmatic attenuation artifact. small area of mild anteroseptal ischemia. mild-mod LVE. EF 40% with mild hk of inf wall. Echo 08/21: mild LVE, severely decr LVEF (global). mild LAE. ecc MR, at least moderate (may be underestimated). 0.7cm mobile density on LV side of AV may represent small strand or fibroelastoma, veg cannot be excluded. + pleural effusion a/p: 56 f no known pmhx (does not follow with doctor) here with sob, cough, wheezing. new aflutter: -metoprolol started here, dose last uptitrated to 100 bid on 08/22 for rapid HRs. Tolerating - no asthmatic sx's. -? underlying tachy-CMP here--aggressive HR control efforts. -chadsvasc is 4, cont AC with UFH to warfarin as disc'd below -d/c tele (HR controlled) -consider YENNIFER/[facility]V as outpt if remains compliant and willing to f/u and take meds (re: need for good AC compliance if has cardioversion) acute syst chf: -echo with severe, global LV dysfunction, at least moderate MR (eccentric). BNP 1400 -possible tachy-CMP, vs hypertensive (bp high here, no f/u in long time), vs ? obesity/DIONICIO related, less likely sec to primary MR -small area anteroseptal ischemia on MPI (= low risk study), with equivocal inferior wall findings re: soft tissue attenuation vs inferior ischemia per report -should have reassessment of MR severity once better diuresed and adequately HR controlled as outpt, to rule out primary severe MR causing LV dysfunction (in which case MV surgery may be indicated) -no isch ecg, ce's neg x2, no angina sx suspected. -cont metopr (also for AFib hr control), AMARILIS as doing -08/27: receiving lasix 40 iv bid here with gradual wt loss. chf sx's resolved. -remains volume up though well compensated (JVD and slight periph edema) -ok for discharge from [facility]intends to f/u with us -would send home on torsemide 50mg po bid, and will arrange outpt labs with our office 1 week, and f/u with us 2 wks for chf reassessment (suspect may need higher dose of torsemide in future) -continue metoprolol 100 bid, lisinopril 5 qd, atorvastatin 10mg (no ASA, on warfarin) -continue present warfarin dose. INR today 2.0.--she will repeat INR in our office thursday 08/30 -deferring invasive ischemia w/u in light of pt high risk for DAPT non- compliance if has PCI (plus likely low risk findings given soft tissue attenuation seen in inferior wall area). 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 htn: -new diagnosis here -bp better controlled with b-b and AMARILIS regimen for LV dysfunction above f/u instructions reviewed with pt by me and she verbalized understanding
[2017-08-28] MEDS: LISINOPRIL 5 MG TABLET (FP) PO SCH (10:44)
[2017-08-28] MEDS: METOPROLOL SUCCINATE 100 MG TAB.SR.24H (FP) PO SCH (10:44)
[2017-08-28 11:39] LABS: INR 2.06 (0.82-1.09); PROTHROMBIN TIME (PATIENT) 23.3 SEC (9.98-11.88)
[2017-08-28 11:41] LABS: ACTIVATED PTT 64.6 SECONDS (26.9-34.4)
--- NOTE | 2017-08-28 12:34 | PN ---
Progress Note (short form) - Note Progress Note: Vital Signs Temperature 97.6 F 08/28/17 06:00 Pulse Rate 66 08/28/17 06:00 Respiratory Rate 18 08/28/17 06:00 Blood Pressure 121/71 08/28/17 06:00 O2 Sat by Pulse Oximetry (%) 96 08/27/17 21:00 CBCD WBC 3.6 K/mm3 (4.0-10.0) L 08/26/17 06:00 RBC 4.25 M/mm3 (3.60-5.2) 08/26/17 06:00 Hgb 12.3 GM/dL (10.7-15.3) 08/26/17 06:00 Hct 38.2 % (32.4-45.2) 08/26/17 06:00 MCV 90.0 fl (80-96) 08/26/17 06:00 MCHC 32.1 g/dl (32.0-36.0) 08/26/17 06:00 RDW 14.4 % (11.6-15.6) 08/26/17 06:00 Plt Count 173 K/MM3 (134-434) 08/26/17 06:00 MPV 10.9 fl (7.5-11.1) 08/26/17 06:00 CMP Sodium 139 mmol/L (136-145) 08/27/17 06:20 Potassium 3.9 mmol/L (3.5-5.1) 08/27/17 06:20 Chloride 102 mmol/L (98-107) 08/27/17 06:20 Carbon Dioxide 29 mmol/L (21-32) 08/27/17 06:20 Anion Gap 8 (8-16) 08/27/17 06:20 BUN 15 mg/dL (7-18) D 08/27/17 06:20 Creatinine 0.8 mg/dL (0.55-1.02) 08/27/17 06:20 Creat Clearance w eGFR > 60 (>60) 08/26/17 06:00 Random Glucose 137 mg/dL (74-106) H 08/27/17 06:20 Calcium 8.8 mg/dL (8.5-10.1) 08/27/17 06:20 Total Bilirubin 0.8 mg/dL (0.2-1.0) 08/26/17 06:00 AST 19 U/L (15-37) 08/26/17 06:00 ALT 34 U/L (12-78) 08/26/17 06:00 Alkaline Phosphatase 83 U/L (45-117) 08/26/17 06:00 Total Protein 6.1 g/dl (6.4-8.2) L 08/26/17 06:00 Albumin 2.8 g/dl (3.4-5.0) L 08/26/17 06:00 CARDIAC ENZYMES Creatine Kinase 57 IU/L (26-192) 08/19/17 05:55 Troponin I 0.03 ng/ml (0.00-0.05) 08/19/17 05:55 Current Medications Generic Name Dose Route Start Last Admin Trade Name Freq PRN Reason Stop Dose Admin Acetaminophen 650 mg 08/26/17 14:38 08/26/17 14:53 Tylenol Oral Solution - PO 650 mg Q4H PRN Administration FEVER OR PAIN Atorvastatin Calcium 10 mg 08/20/17 22:00 08/27/17 21:13 Lipitor - PO 10 mg HS [facility] Administration Heparin Sodium (Porcine) 1,000 unit 08/19/17 23:32 08/20/17 21:13 Heparin - IVPUSH 1,000 unit PRN PRN Administration Heparin Heparin Sodium (Porcine) 5,000 unit 08/19/17 23:32 Heparin - IVPUSH PRN PRN Heparin HEPARIN SOD,PORK IN 0.45% NACL 25,000 units in 500 mls @ 20 mls/hr 08/19/17 23 :32 08/27/17 23:35 Heparin-1/2ns 25,000 Units/500 IVPB Not Given TITR [facility] Protocol 1,000 UNITS/HR Insulin Aspart 1 vial 08/20/17 07:00 08/28/17 12:09 Novolog Vial Sliding Scale - SQ 4 unit ACHS [facility] Administration Protocol Insulin Detemir 10 units 08/20/17 07:00 08/28/17 06:27 Levemir Vial SQ 10 unit AM [facility] Administration Lisinopril 5 mg 08/20/17 10:00 08/28/17 10:44 Prinivil PO Not Given DAILY [facility] Metformin HCl 500 mg 08/26/17 07:00 08/28/17 06:26 Glucophage Xr - PO 500 mg DAILY@0700 [facility] Administration Metoprolol Succinate 100 mg 08/22/17 22:00 08/28/17 10:44 Toprol Xl - PO 100 mg BID [facility] Administration Torsemide 50 mg 08/28/17 22:00 Demadex - PO BID [facility] Warfarin Sodium 10 mg/ 12.5 mg 08/26/17 18:00 08/27/17 16:59 Warfarin Sodium 2.5 mg PO 12.5 mg DAILY@1800 [facility] Administration Home Medications Medication Instructions Recorded NK [No Known Home Medication] 08/19/17
--- NOTE | 2017-08-28 12:36 | DS ---
Physical Exam: SUBJECTIVE: Patient seen and examined Patient has no new complains. OBJECTIVE: Vital Signs Temperature 97.6 F 08/28/17 06:00 Pulse Rate 66 08/28/17 06:00 Respiratory Rate 18 08/28/17 06:00 Blood Pressure 121/71 08/28/17 06:00 O2 Sat by Pulse Oximetry (%) 96 08/27/17 21:00 PHYSICAL EXAM GENERAL: The patient is awake, alert, and fully oriented, in no acute distress. HEAD: Normal with no signs of trauma. EYES: PERRL, extraocular movements intact, sclera anicteric, conjunctiva clear. ENT: Ears normal, nares patent, oropharynx clear without exudates, moist mucous membranes. NECK: Trachea midline, full range of motion, supple. LUNGS: Breath sounds equal, clear to auscultation bilaterally, no wheezes, no crackles, no accessory muscle use. HEART: irrgularly irregular rate controlled and rhythm, S1, S2 positive , no murmur, rub or gallop. ABDOMEN: Soft, nontender, nondistended, normoactive bowel sounds, no guarding, no rebound, no hepatosplenomegaly, no masses. EXTREMITIES: 2+ pulses, warm, well-perfused, no edema. NEUROLOGICAL: Cranial nerves II through XII grossly intact. Normal speech, gait is stable. PSYCH: Normal mood, normal affect. SKIN: Warm, dry, normal turgor, no rashes or lesions noted. LABS Laboratory Tests 08/22/17 08/23/17 08/24/17 07:22 06:00 05:35 PT with INR 13.40 H 15.30 H 16.90 H INR 1.19 H 1.35 H 1.50 H 08/25/17 08/26/17 08/26/17 06:30 06:00 11:14 PT with INR INR 1.56 H 1.56 H 1.58 H 08/27/17 08/27/17 08/28/17 06:20 11:37 10:58 PT with INR INR 1.73 H 1.73 H 2.06 H CBCD WBC 3.6 K/mm3 (4.0-10.0) L 08/26/17 06:00 RBC 4.25 M/mm3 (3.60-5.2) 08/26/17 06:00 Hgb 12.3 GM/dL (10.7-15.3) 08/26/17 06:00 Hct 38.2 % (32.4-45.2) 08/26/17 06:00 MCV 90.0 fl (80-96) 08/26/17 06:00 MCHC 32.1 g/dl (32.0-36.0) 08/26/17 06:00 RDW 14.4 % (11.6-15.6) 08/26/17 06:00 Plt Count 173 K/MM3 (134-434) 08/26/17 06:00 MPV 10.9 fl (7.5-11.1) 08/26/17 06:00 CMP Sodium 139 mmol/L (136-145) 08/27/17 06:20 Potassium 3.9 mmol/L (3.5-5.1) 08/27/17 06:20 Chloride 102 mmol/L (98-107) 08/27/17 06:20 Carbon Dioxide 29 mmol/L (21-32) 08/27/17 06:20 Anion Gap 8 (8-16) 08/27/17 06:20 BUN 15 mg/dL (7-18) D 08/27/17 06:20 Creatinine 0.8 mg/dL (0.55-1.02) 08/27/17 06:20 Creat Clearance w eGFR > 60 (>60) 08/26/17 06:00 Random Glucose 137 mg/dL (74-106) H 08/27/17 06:20 Calcium 8.8 mg/dL (8.5-10.1) 08/27/17 06:20 Total Bilirubin 0.8 mg/dL (0.2-1.0) 08/26/17 06:00 AST 19 U/L (15-37) 08/26/17 06:00 ALT 34 U/L (12-78) 08/26/17 06:00 Alkaline Phosphatase 83 U/L (45-117) 08/26/17 06:00 Total Protein 6.1 g/dl (6.4-8.2) L 08/26/17 06:00 Albumin 2.8 g/dl (3.4-5.0) L 08/26/17 06:00 CARDIAC ENZYMES Creatine Kinase 57 IU/L (26-192) 08/19/17 05:55 Troponin I 0.03 ng/ml (0.00-0.05) 08/19/17 05:55 Current Medications Generic Name Dose Route Start Last Admin Trade Name Freq PRN Reason Stop Dose Admin Acetaminophen 650 mg 08/26/17 14:38 08/26/17 14:53 Tylenol Oral Solution - PO 650 mg Q4H PRN Administration FEVER OR PAIN Atorvastatin Calcium 10 mg 08/20/17 22:00 08/27/17 21:13 Lipitor - PO 10 mg HS [facility] Administration Heparin Sodium (Porcine) 1,000 unit 08/19/17 23:32 08/20/17 21:13 Heparin - IVPUSH 1,000 unit PRN PRN Administration Heparin Heparin Sodium (Porcine) 5,000 unit 08/19/17 23:32 Heparin - IVPUSH PRN PRN Heparin HEPARIN SOD,PORK IN 0.45% NACL 25,000 units in 500 mls @ 20 mls/hr 08/19/17 23 :32 08/27/17 23:35 Heparin-1/2ns 25,000 Units/500 IVPB Not Given TITR [facility] Protocol 1,000 UNITS/HR Insulin Aspart 1 vial 08/20/17 07:00 08/28/17 12:09 Novolog Vial Sliding Scale - SQ 4 unit ACHS [facility] Administration Protocol Insulin Detemir 10 units 08/20/17 07:00 08/28/17 06:27 Levemir Vial SQ 10 unit AM [facility] Administration Lisinopril 5 mg 08/20/17 10:00 08/28/17 10:44 Prinivil PO Not Given DAILY [facility] Metformin HCl 500 mg 08/26/17 07:00 08/28/17 06:26 Glucophage Xr - PO 500 mg DAILY@0700 [facility] Administration Metoprolol Succinate 100 mg 08/22/17 22:00 08/28/17 10:44 Toprol Xl - PO 100 mg BID [facility] Administration Torsemide 50 mg 08/28/17 22:00 Demadex - PO BID [facility] Warfarin Sodium 10 mg/ 12.5 mg 08/26/17 18:00 08/27/17 16:59 Warfarin Sodium 2.5 mg PO 12.5 mg DAILY@1800 [facility] Administration Home Medications Medication Instructions Recorded NK [No Known Home Medication] 08/19/17 Echo 08/21: mild LVE, severely decr LVEF (global). mild LAE. ecc MR, at least moderate (may be underestimated). 0.7cm mobile density on LV side of AV may represent small strand or fibroelastoma, veg cannot be excluded. + pleural effusion HOSPITAL COURSE: Date of Admission:08/18/17 Date of Discharge: 08/28/17 Patient is a 56 y/o lady with no known PMHx who presented with SOB , and was found to have A flutter with RVR and resultant CHF # A Fib rate is controlled now on coumadin with therapeutic INR of 2.06 from 1.73 on coumadin 12.5mg , dc Heparin and continue with coumadin 12.5mg , continue toprol XL 100 BID, Mobile structure on AV , is unlikely vegetation. further w/u YENNIFER as an outpatient as per . continue with 12.5mg warfarin INR repeat in Dr. Loomis's office thursday 08/30 continue metoprolol 100 bid, lisinopril 5 qd, atorvastatin 10mg (no ASA, on warfarin) As per Dr. Loomis's note: deferring invasive ischemia w/u in light of pt high risk for DAPT non-compliance if has PCI (plus likely low risk findings given soft tissue attenuation seen in inferior wall area). And any new sx's of angina , should have cath. as per 's note # New onset systolic CHF. s/p IV lasix , will continue with Torsemide 50mg po bid as per ribbon weaver, cont low dose lisinopril , Nuclear stress test with ischemia .further w/u as per ribbon weaver . As per Dr. Loomis should have reassessment of MR severity once better diuresed and with adequate HR control as outpt, to rule out primary severe MR causing LV dysfunction (in which case MV surgery may be indicated). recommendation to send home on torsemide 50mg po bid, and 's office will arrange outpt labs with our office 1 week, and f/u with us 2 wks for chf reassessment (suspect may need higher dose of torsemide in future) As per ribbon weaver : outpt f/u and if EF does not improve with HR control. Findings c/w fibrous strand vs fibroelastoma > vegetation -no fever or leucocytosis, with negative blood culture , and no stigmata of Infective endocarditis. # New diagnosis of T2DM started on metformin continue to monitor blood sugar # HTN: Lisinopril , toprol , Lasix # Hyperlipidemia: low dose lipitor patient can be discharged home today. Minutes to complete discharge: 50 Discharge Summary Reason For Visit: NEW ONSET ATRIAL FIBRILATION Current Active Problems Afib (Acute) New onset a-fib (Acute) SOB (shortness of breath) (Acute) Condition: Stable - Instructions Diet, Activity, Other Instructions: continue with 12.5mg warfarin INR repeat in Dr. Loomis's office thursday 08/30 Referrals: Marla Ghotra MD [Staff Physician] - - Home Medications Comprehensive Discharge Medication List: Ambulatory Orders NK [No Known Home Medication] 08/19/17 This patient is new to me today: No Emergency Visit: Yes ED Registration Date: 08/18/17 Care time: The patient presented to the Emergency Department on the above date and was hospitalized for further evaluation of their emergent condition. Critical Care patient: No - Discharge Referral Referred to [facility] Yes Physician Referral: Osman Coker MD (Int Med)
[2017-08-28 15:35] VITALS: BP 131/64; PULSE 99; TEMP 98
[2017-08-28] MEDS ORDERED: WARFARIN NA 2.5 MG TABLET (FP) ONE (17:39)
[2017-08-28] MEDS ORDERED: WARFARIN NA 10 MG TABLET (FP) ONE (17:39)
[2017-08-28] MEDS: WARFARIN NA 10 MG, WARFARIN NA 2.5 MG PO SCH (18:13)
[2017-08-28] MEDS ORDERED: INSULIN (NOVOLOG) ASPART 100 UNITS/ML 10ML VIAL ONE ×2 (20:18→20:54)
[2017-08-28] MEDS ORDERED: TORSEMIDE 20 MG TABLET (FP) PO SCH (22:00)
== END 2017-08-28 23:43 | disposition home or self-care (01) | DRG 201 ==
LOC: JER 17:48 → JERBED 21:18 → JICU 23:05 → J4S 08-20 00:18
PROVIDERS: ADMIT Internal Medicine; ATTEND Internal Medicine
DX: I48.91 Unspecified atrial fibrillation (principal); I48.92 Unspecified atrial flutter; E11.9 Type 2 diabetes mellitus without complications; I11.0 Hypertensive heart disease with heart failure; I50.21 Acute systolic (congestive) heart failure; E78.5 Hyperlipidemia, unspecified; E66.9 Obesity, unspecified; Z68.43 Body mass index [BMI] 50.0-59.9, adult; I35.1 Nonrheumatic aortic (valve) insufficiency; I42.9 Cardiomyopathy, unspecified; I36.1 Nonrheumatic tricuspid (valve) insufficiency
CPT/HCPCS: 36415; 71010-TC; 78452-TC; 80048; 80053; 80061; 82272; 82550; 83036; 83721; 83880; 84100; 84443; 84484; 84703; 85025; 85027; 85610; 85730; 87040; 93005; 93010; 93017; 93306-TC; 93970-TC; 94761; 99283-25; A9502; J1644

== ENCOUNTER 2017-09-03 18:12 | Emergency (ER) | payer OTHER ==
[2017-09-03 18:16] VITALS: BMI 58.3
[2017-09-03 18:48] VITALS: BP 119/59; PULSE 79
--- NOTE | 2017-09-03 18:55 | PDOC ---
History of Present Illness - General Chief Complaint: Blood Pressure Problem Stated Complaint: BLOOD PRESSURE Time Seen by Provider: 09/03/17 18:30 History Source: Patient Exam Limitations: No Limitations - History of Present Illness Initial Comments: 09/03/17 18:50 Patient came for evaluation of mild anxiety and feelings of elevated blood pressure. Patient states became concerned this afternoon because of foul odor coming from her radiator heat which causes her to become anxious. States at that time felt that her blood pressure was rising and came to the emergency department for evaluation. Was concerned as it was recently discharged for a hypertensive and diabetic issue last week. Denies headache, dizziness, shortness of breath chest pain or palpitations. Timing/Duration: unsure Severity: mild Associated Symptoms: reports: denies symptoms. denies: chest pain, cough, diaphoresis, fever/chills, headaches, loss of appetite, malaise, nausea/vomiting Past History - Travel Traveled outside of the country in the last 30 days: Yes Close contact w/someone who was outside of country & ill: Yes - Past Medical History Allergies/Adverse Reactions: Allergies Allergy/AdvReac Type Severity Reaction Status Date / Time banana Allergy Unknown Hives Verified 09/03/17 18:16 green peas Allergy Unknown Hives Uncoded 09/03/17 18:16 hernandez beans Allergy Unknown Hives Uncoded 09/03/17 18:16 red apple Allergy Unknown Hives Uncoded 09/03/17 18:16 Home Medications: Ambulatory Orders Atorvastatin Ca [Lipitor] 10 mg PO HS #30 tablet 08/28/17 Insulin (Levemir) [Levemir Vial] 10 units SQ AM #1 vial 08/28/17 Lisinopril [Prinivil] 5 mg PO DAILY #30 tablet 08/28/17 Metformin Xr [Glucophage Xr -] 1,000 mg PO DAILY@0700 #30 tab.sr.24h 08/28/17 Metoprolol Succinate [Toprol XL -] 100 mg PO BID #60 tab.sr.24h 08/28/17 Syringe and Needle,Insulin,1Ml [Easy Comfort Insulin Syringe] 1 each MC DAILY # 30 disp.syrin 08/28/17 Torsemide [Demadex -] 50 mg PO BID #60 tablet 08/28/17 Warfarin Na [Coumadin -] 12.5 mg PO DAILY@1800 #30 tablet 08/28/17 Warfarin Na [Coumadin -] 12.5 mg PO DAILY@1800 #30 tablet 08/28/17 Cardiac Disorders: Yes (MURMUR) COPD: No Diabetes: Yes HTN: Yes - Suicide/Smoking/Psychosocial Hx Smoking History: Never smoked Have you smoked in the past 12 months: No Hx Alcohol Use: No Drug/Substance Use Hx: No Substance Use Type: None Hx Substance Use Treatment: No Review of Systems - Review of Systems Able to Perform ROS?: Yes Is the patient limited Divehi proficient: Yes Constitutional: Yes: See HPI. No: Symptoms Reported, Chills, Malaise HEENTM: Yes: See HPI. No: Symptoms Reported Respiratory: Yes: See HPI. No: Symptoms reported Cardiac (ROS): Yes: See HPI. No: Symptoms Reported, Chest Pain Integumentary: No: Symptoms Reported Neurological: Yes: See HPI. No: Symptoms reported, Headache, Numbness, Paresthesia Psychiatric: Yes: Anxiety All Other Systems: Reviewed and Negative *Physical Exam - Vital Signs Last Vital Signs Temp Pulse Resp BP Pulse Ox 79 20 119/59 99 09/03/17 18:47 09/03/17 18:13 09/03/17 18:47 09/03/17 18:13 - Physical Exam General Appearance: Yes: Nourished, Appropriately Dressed. No: Apparent Distress HEENT: positive: JOSS, Normal ENT Inspection, TMs Normal, Pharynx Normal Neck: positive: Supple. negative: Tender Respiratory/Chest: positive: Lungs Clear, Normal Breath Sounds Cardiovascular: positive: Regular Rhythm Gastrointestinal/Abdominal: positive: Normal Bowel Sounds, Soft (morbid obese ) Musculoskeletal: positive: Normal Inspection. negative: CVA Tenderness Extremity: positive: Normal Capillary Refill, Normal Range of Motion Integumentary: positive: Normal Color, Dry, Warm, Pale Neurologic: positive: historical site guide II-XII NML intact, Fully Oriented, Alert, Normal Mood/ Affect, Normal Response, Motor Strength 5/5 *DC/Admit/Observation/Transfer Diagnosis at time of Disposition: Anxiety - Discharge Dispostion Disposition: HOME Condition at time of disposition: Stable Admit: No - Referrals - Patient Instructions Printed Discharge Instructions: DI for High Blood Pressure Additional Instructions: Rest, drink lots of fluids, avoid caffeinated beverage or heavy fatty foods. Continue all medications as previously ordered Then on September 06 with PMD for follow-up Return to emergency department for headache, dizziness, chest pain or palpitations or any problems with hypertension Your discharge blood pressure in the emergency department was 119/79, rate 72 and regular - Post Discharge Activity
== END 2017-09-03 19:02 | disposition home or self-care (01) ==
LOC: JERFT 18:12
DX: F41.9 Anxiety disorder, unspecified (principal); I10 Essential (primary) hypertension; E10.9 Type 1 diabetes mellitus without complications; Z79.4 Long term (current) use of insulin
CPT/HCPCS: 99281-25